=== PATIENT | female | born 1955 | race Caucasian/White ===

== ENCOUNTER 2018-04-13 03:04 | Outpatient (CLI) | payer BC ==
[2018-04-13 16:42] LABS: #Basophils 0.1 thou/uL (0.0-0.2); #Eosinphils 0.2 thou/uL (0.0-0.7); #Lymphocytes 2.4 thou/uL (1.20-3.40); #Monocytes 0.6 thou/uL (0.11-0.59); #Neutrophils 3.8 thou/uL (1.40-6.50); %Eosinophils 2.9 % (0.0-10.0); %Lymphocytes 33.9 % (21.0-51.0); %Monocytes 7.9 % (0.0-10.0); %Neutrophils 54.3 % (42.0-75.0); Hemoglobin 13.9 g/dL (12.0-16.0); Mean Corpuscular HGB CONC 32.8 g/dL (32.0-36.0); Mean Corpuscular Hemoglobin 32.4 pg (27.0-31.0); Mean Corpuscular Volume 98.7 fL (78.0-98.0); Mean Platelet Volume 7.7 fL (7.4-10.4); Platelet Count 336 thou/uL (130-400); RBC Distribution Width 12.5 % (11.5-14.5); Red Blood Cell (RBC) Count 4.29 mill/uL (4.20-5.40); White Blood Cell (WBC) Count 7.1 thou/uL (4.8-10.8)
[2018-04-13 17:01] LABS: Anion Gap 16 mmol/L (10-20); BUN (Urea Nitrogen) 19 mg/dL (9.8-20.1); Calc. Creatinine Clearance 0 mL/min (70-130); Calcium 10.4 mg/dL (7.8-10.44); Carbon Dioxide 24 mmol/L (23-31); Chloride 104 mmol/L (98-107); Estimated GFR-MDRD 50; Glucose 97 mg/dL (80-115); Potassium 4.1 mmol/L (3.5-5.1); Sodium 140 mmol/L (136-145)
--- NOTE | 2018-04-13 17:42 | RAD ---
TWO VIEWS CHEST: 04/13/18 HISTORY: Preoperative chest radiograph. PA and lateral views of the chest is obtained. The lungs are well aerated. No evidence of active intr athoracic disease seen. No evidence of effusions, pneumonia, or pneumothorax seen. IMPRESSION: Unremarkable two views chest. POS: [facility]
--- NOTE | 2018-04-15 08:56 | EKG ---
Test Reason : Blood Pressure : / mmHG Vent. Rate : 075 BPM Atrial Rate : 075 BPM P-R Int : 200 ms QRS Dur : 090 ms QT Int : 416 ms P-R-T Axes : 064 -60 038 degrees QTc Int : 464 ms Normal sinus rhythm Possible Left atrial enlargement Left anterior fascicular block Abnormal ECG When compared with ECG of 18-AUG-1996 12:58, Left anterior fascicular block is now Present Confirmed by DR. Aaron SILVA ([id number]) on 04/15/2018 8:56:25 AM Referred By: Confirmed By:DR. Aaron SILVA
== END 2018-04-13 03:05 | disposition home or self-care (01) ==
LOC: LABBT 03:04
PROVIDERS: ATTEND Specialist
DX: Z01.818 Encounter for other preprocedural examination (principal); C50.912 Malignant neoplasm of unspecified site of left female breast; Z17.0 Estrogen receptor positive status [ER+]
CPT/HCPCS: 71046; 80048; 85025; 93005; 93010

== ENCOUNTER 2018-04-15 06:15 | Day surgery (SDC) | payer BC ==
--- NOTE | 2018-04-07 12:20 | HP ---
HISTORY OF PRESENT ILLNESS: Yari Nascimento is a 62-year-old female, 278 pounds, 5 feet and 7 inches, presents with a new left breast cancer, medial superior breast. Family history is negative for breast cancer. She has been initially evaluated by Dr. Hylton in [place], referred to Dr. 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 Initial mammogram screening on 02/17/2018, BI-RADS 0, required further imaging leading to a left breast ultrasound and biopsy on 03/10/2018. This mass was 0.6 cm at 11 o'clock radian. The patient is 1, para 1, at 19 years of age and she breastfed. She presents today with her . The patient's is undergoing treatment for bladder cancer. The patient does have a history of tubular adenomas, colonoscopy in 2016, plan to repeat in 2019. The recommendation is for lymphoscintigraphy mammographically needle localized localization for partial mastectomy, left breast upper medial cancer with sentinel node biopsy as an outpatient and follow up in my office in Oncology in 5 to 10 days. PAST SURGICAL HISTORY: Hysterectomy in 1980, eye surgery in 1988, EGD colonoscopy in 2016, left breast needle core biopsy on 03/10/2018. Tobacco cessation 2.5 years ago, 1.5 pack per day prior. Alcohol socially. PAST MEDICAL HISTORY: Diabetes mellitus type 2, hypertension, elevated cholesterol, osteoarthritis, arthritis of shoulder, anxiety, depression, hypothyroidism, GERD in 1991, history of colon polyps, vitamin D deficiency, and gastroparesis. REVIEW OF SYSTEMS: Ten-point noncontributory. ALLERGIES: PENICILLIN. PHYSICAL EXAMINATION: VITAL SIGNS: Blood pressure 143/56, pulse 87, temperature 99 degrees, 278 pounds, 5 feet and 7 inches. HEAD, EARS, EYES, NOSE AND THROAT: Unremarkable. LUNGS: Clear to auscultation. CARDIAC: Regular rate and rhythm without murmur or gallop. ABDOMEN: Soft, nontender, obese. EXTREMITIES: Unremarkable. NEUROLOGICAL: Intact. No focal deficits. SKIN: Normal. Ankle are without edema. Palpable peripheral pulses. Both breasts without masses. Axillary without lymphadenopathy. The patient has surgical changes from a core biopsy, left breast upper medial with some firmness at the biopsy site indicative of probably a small hematoma, but no definite palpable mass, but cannot fully assess this due to recent biopsy. ASSESSMENT AND PLAN: Left breast cancer 0.6 cm about radiological criteria, ER positive, weakly PA positive, HER-2 intermediate. We would recommend lymphoscintigraphy needle localization followed by partial mastectomy, sentinel node biopsy. Risks and benefits of procedure were discussed, questions answered. Planned surgery in the near future. We will schedule this and arrange followup for her to see both myself and Dr. Davis on the same day. Job ID: [id number]
[2018-04-13 15:35] VITALS: BMI 42.9
[2018-04-15] MEDS ORDERED: Ketorolac Tromethamine 30 MG/ML VIAL ONE (09:14)
[2018-04-15] MEDS ORDERED: Clindamycin/D5W 600 mg/50 ml Premix Bag ONE (09:14)
[2018-04-15] MEDS ORDERED: Bupivacaine 0.25% HCL 30 ML VIAL ONE (09:56)
[2018-04-15] MEDS ORDERED: Isosulfan Blue 50 MG/5 ML VIAL ONE (09:56)
[2018-04-15] MEDS ORDERED: Lidocaine 1% w/Epinephrine 1:100K 20 ML VIAL ONE (09:56)
[2018-04-15] MEDS ORDERED: Fentanyl 100 MCG/2 ML VIAL ONE ×2 (10:30)
--- NOTE | 2018-04-15 11:48 | NM ---
RADIONUCLIDE LYMPHOSCINTIGRAPHY LEFT BREAST: HISTORY: Left breast cancer. FINDINGS: After explaining the procedure and answering all questions, the periareolar skin of the left breast w as thoroughly cleansed. Sterile technique was used to inject a total volume of 1 cc liquid containin g a total of 372 mCi Technetium 99m filtered sulfur colloid in 4 equal aliquots at the 12 o'clock, 3 o'clock, 6 o'clock, and 9 o'clock periareolar position of the left breast. Injection site was massag ed by the patient and imaging was performed. Immediate imaging shows a focus of uptake at the axillary tail of the left breast. The skin overlyin g the sentinel lymph node was marked and the patient was sent to day surgery in good condition. IMPRESSION: Technically successful lymphoscintigraphy left breast showing single sentinel lymph node at the axill sherri tail. POS: [facility]
[2018-04-15] MEDS ORDERED: Promethazine HCl 25 MG/ML VIAL ONE (12:48)
--- NOTE | 2018-04-15 13:34 | OP ---
DATE OF PROCEDURE: 04/15/2018 PREOPERATIVE DIAGNOSIS: Left breast cancer, upper medial breast. Clinical staging [id number], stage IIC, 0.6 cm by ultrasound criteria, ER positive, SD positive, 97% and 33.4% respectively, HER2 equivocal, Ki-67, intermediate invasive ductal cell carcinoma, 11 o'clock radian, left breast upper medial nonpalpable nodes. POSTOPERATIVE DIAGNOSIS: Left breast cancer, upper medial breast. Clinical staging [id number], stage IIC, 0.6 cm by ultrasound criteria, ER positive, SD positive, 97% and 33.4% respectively, HER2 equivocal, Ki-67, intermediate invasive ductal cell carcinoma, 11 o'clock radian, left breast upper medial nonpalpable nodes. PROCEDURES PERFORMED: Preoperative lymphoscintigraphy and mammo needle localization. Intraoperatively, Lymphazurin blue injection, sentinel node biopsy, deep axillary nodes, partial mastectomy, upper medial left breast cancer. ANESTHESIA: General, local 0.25% Marcaine without epinephrine 60 mL mixed with 1% Xylocaine with epinephrine 30 mL, total volume used, Neoprobe used. Note, Neoprobe counts of the sentinel node 50, background counts 0 after resection. DESCRIPTION OF PROCEDURE: The patient was taken to the operating room, where under general anesthesia, left breast was prepared with ChloraPrep and draped in routine fashion after Lymphazurin blue infiltrated the skin subdermal left periareolar. Once the breast was prepped and draped in the routine fashion, incision was made in the left axilla at the low axillary line, carried down to skin and subcutaneous tissue deep fascia identifying 2 sentinel nodes with counts of 8 on 1 node and 50 on another, background count 0, nodes excised, touch prep was negative for cancer. Hemostasis gained with the cautery. Subcutaneous tissue was approximated with 3-0 Monocryl, skin with subdermal 4-0 Monocryl and local anesthetic was infiltrated in the skin and subcutaneous tissue about the wound and infiltrated the biopsy cavity for postoperative pain control. Dermabond was applied. Incision was made in the upper medial left breast transversely, carried down to skin and subcutaneous tissue. The lesion was too far superior for a periareolar incision. Incision was carried down to skin and subcutaneous tissue. Localizing wire brought into the wound and a core of breast tissue dissected free for partial mastectomy. This was excised along with the localizing needle, and margins marked appropriately upper, lower, medial, lateral, anterior, and posterior. Once marking sutures were in place, lesion was submitted to mammography, where specimen mammography assured retrieval of the localizing clip and wire. Hemostasis gained with the cautery. Specimen submitted to Pathology. Subcutaneous tissues were approximated with 3-0 Monocryl, skin with subdermal 4-0 Monocryl. Local anesthetic was infiltrated in the skin and subcutaneous tissue about the operative site. I also infiltrated the breast tissue and then infiltrated the biopsy cavity filled with local anesthetic. Hemostasis had been obtained. Sponge and needle counts were correct on all wound closures. Dermabond was applied, Mark wraps applied. The patient tolerated the procedure well. Job ID: [id number]
--- NOTE | 2018-04-15 13:54 | MMO ---
MAMMOGRAPHIC GUIDED NEEDLE LOCALIZATION LEFT BREAST MASS AND LEFT BREAST CANCER SURGICAL SPECIMEN MAMMOGRAPHY: HISTORY: Left breast cancer. FINDINGS: Sterile technique, buffered local anesthesia, sonographic guidance, and a medial approach were used t o carefully advance a [place] needle and wire through the biopsy site immediately deep to the localizat ion clip. The clip lies approximately 3 cm from the tip of the needle. The needle was secured exter gorge. The patient tolerated the procedure well and was transferred in good condition. Mammographic evaluation of the surgical specimen obtained by Dr. Ozuna shows the localization wire a nd biopsy clip to overlie the center of the tissue. IMPRESSION: Technically successful needle localization left breast cancer. POS: [facility]
[2018-04-15] MEDS ORDERED: PROPOFOL 200 MG/20 ML VIAL ONE (15:42)
[2018-04-15] MEDS ORDERED: Ondansetron PF 4 MG/2 ML Vial ONE (15:42)
[2018-04-15] MEDS ORDERED: Rocuronium Bromide 10 MG/ML (10ML VIAL) ONE (15:42)
[2018-04-15] MEDS ORDERED: Lidocaine 1% PF 5 ML VIAL ONE (15:42)
[2018-04-15] MEDS ORDERED: Glycopyrrolate 0.2 MG/ML 5 ML SYRINGE ONE (15:42)
[2018-04-15] MEDS ORDERED: ePHEDrine 50 MG/ML VIAL ONE (15:42)
== END 2018-04-15 14:15 | disposition home or self-care (01) ==
LOC: SDC 06:15
PROVIDERS: ATTEND Specialist
PROC: 07B60ZX Excision of Left Axillary Lymphatic, Open Approach, Diagnostic (ICD-10-PCS; principal; 2018-04-15)
PROC: 0HBU0ZZ Excision of Left Breast, Open Approach (ICD-10-PCS; principal; 2018-04-15)
DX: C50.212 Malignant neoplasm of upper-inner quadrant of left female breast (principal); I10 Essential (primary) hypertension; E78.00 Pure hypercholesterolemia, unspecified; M19.012 Primary osteoarthritis, left shoulder; F32.9 Major depressive disorder, single episode, unspecified; E03.9 Hypothyroidism, unspecified; K21.9 Gastro-esophageal reflux disease without esophagitis; E11.43 Type 2 diabetes mellitus with diabetic autonomic (poly)neuropathy; K31.84 Gastroparesis; Z17.0 Estrogen receptor positive status [ER+]; Z87.891 Personal history of nicotine dependence; Z79.84 Long term (current) use of oral hypoglycemic drugs; Z79.899 Other long term (current) drug therapy; Z88.0 Allergy status to penicillin; Z88.5 Allergy status to narcotic agent; Z88.8 Allergy status to other drugs, medicaments and biological substances
CPT/HCPCS: 19281; 76098; 78195; 88307; 88331; 88334; 88341; 88342; A9541; J0131; J1885; J2001; J2405; J2550; J2704; J3010; J3490; Q9968; S0020

== ENCOUNTER 2018-05-27 09:33 | Day surgery (SDC) | payer BC ==
[2018-05-26 10:50] VITALS: BMI 42.3
[2018-05-27] MEDS ORDERED: Levofloxacin 500 mg/D5W 100 ml Premix Bag ONE (10:00)
[2018-05-27] MEDS ORDERED: Metoclopramide HCl 10 MG/2 ML VIAL ONE (10:01)
[2018-05-27] MEDS ORDERED: Ondansetron PF 4 MG/2 ML Vial ONE ×2 (10:01→12:11)
[2018-05-27] MEDS ORDERED: Midazolam HCl 2 mg/2 ml Vial ONE ×2 (10:01→12:23)
[2018-05-27] MEDS ORDERED: Lidocaine 2% PF 5 ML VIAL ONE (10:25)
[2018-05-27] MEDS ORDERED: Bupivacaine HCl 0.5%/Epinephrine 1:200,000/PF 30 ml Vial ONE (10:25)
[2018-05-27] MEDS ORDERED: Sodium Chloride 0.9% 20 ML ONE (11:20)
[2018-05-27] MEDS ORDERED: Iothalamate Meglumine 60% 50 ML VIAL FS ONE (11:24)
[2018-05-27] MEDS ORDERED: Sodium Chloride 0.9% 0 ML ONE (11:24)
[2018-05-27] MEDS ORDERED: Activase 2 MG VIAL CATH SCH (11:26)
[2018-05-27] MEDS ORDERED: Sterile Water 10 ML VIAL IVP SCH (11:26)
[2018-05-27] MEDS ORDERED: Sodium Chloride 0.9% 30 ML ONE (11:29)
--- NOTE | 2018-05-27 11:38 | OP ---
DATE OF PROCEDURE: 05/27/2018 PREOPERATIVE DIAGNOSIS: Left breast cancer with slight redness without fever. POSTOPERATIVE DIAGNOSIS: Left breast cancer with slight redness without fever. PROCEDURE PERFORMED: Right subclavian vein standard MediPort, fluoroscopy used. ANESTHESIA: TIVA, local of 0.25% Marcaine with epinephrine 30 mL mixed with 2% Xylocaine 10 mL. Aspirated serous sanguinous greenish fluid from the left breast, sent for culture. DESCRIPTION OF PROCEDURE: The patient was taken to the operating room, where under intravenous sedation, the chest and neck were prepared with ChloraPrep and draped in routine fashion. Local anesthetic mixture was infiltrated into the skin and subcutaneous tissue about the operative site. Infraclavicular approach made cannulating the right subclavian vein, threading the J-wire, removing the trocar and catheter, enlarging skin incision, creating a subcutaneous pocket with blunt and sharp dissection using cautery for hemostasis. Dilator and Peel-Away sheath placed with J-wire into the superior vena cava. Dilator and J-wire were removed. Catheter was placed with Peel-Away sheath. Peel-Away sheath removed. Fluoroscopically, catheter tip was placed in optimal position in the superior vena cava, tailored to length, connected to the MediPort, placed in subcutaneous pocket, secured with 2 interrupted suture of 3-0 Prolene. Subcutaneous tissue was approximated with 3-0 Monocryl, skin approximated with continuous suture of 4-0 Monocryl, and [place] glue applied. Fluoroscopic images revealed good line placement. Left breast was then aspirated as it had been prepped with ChloraPrep. There was some greenish clear fluid not indicative of infection, sent for culture. Job ID: [id number]
[2018-05-27] MEDS ORDERED: PHENYLEPHRINE-NS 100 MCG/ML 10 ML SYRINGE ONE (12:11)
[2018-05-27] MEDS ORDERED: Lidocaine 1% PF 5 ML VIAL ONE (12:11)
[2018-05-27] MEDS ORDERED: PROPOFOL 200 MG/20 ML VIAL ONE (12:12)
[2018-05-27] MEDS ORDERED: Bupivacaine/Epinephrine 0.25% 30 ML VIAL ONE (12:14)
[2018-05-27] MEDS ORDERED: Fentanyl 100 MCG/2 ML VIAL ONE (12:23)
[2018-05-27] MEDS ORDERED: Propofol 500 MG/50 ML VIAL ONE (12:24)
[2018-05-27] MEDS ORDERED: PROPOFOL 40 ML ONE (12:24)
--- NOTE | 2018-05-27 12:54 | OP ---
DATE OF PROCEDURE: 05/27/2018 ADDENDUM: Ms. Nascimento's MediPort after being inserted was accessed with a Velázquez needle and flushed with heparinized saline solution, but would not aspirate. I then repositioned fluoroscopy and looked at the MediPort and the catheter was too long. After persistent attempts, it flushed, aspirated, I then decided to reopen the incision. The chest was prepared with ChloraPrep and draped in routine fashion. Incision was made through the old incision and MediPort brought into the wound, removed from the wound. The catheter was disconnected from the MediPort and fluoroscopic images revealed the catheter as noted to be too long and thus, the catheter was withdrawn under fluoroscopic images. Tip placed in proper position in the superior vena cava and catheter tailored to length and reconnected to the MediPort, which was placed in subcutaneous pocket, secured with 3-0 Prolene suture. Subcutaneous tissue was approximated with 3-0 Monocryl, skin with subdermal 4-0 Monocryl. MediPort accessed with a Velázquez needle and aspirated blood, flushed with heparin flush without problems. Fluoroscopic images revealed good line placement. Dermabond applied. The patient tolerated the procedure well. Job ID: [id number]
--- NOTE | 2018-05-27 13:42 | RAD ---
CHEST 2 VIEWS: Date: 05/27/18 HISTORY: MediPort placement. COMPARISON: Radiograph from 04/13/18. FINDINGS: Lungs are clear. No pneumothorax or effusion. Cardiac silhouette and mediastinal contour within edmar l limits. No acute osseous abnormality. Port catheter tip in good position. IMPRESSION: Uncomplicated placement of right port catheter placement. POS: [facility]
== END 2018-05-27 13:20 | disposition home or self-care (01) ==
LOC: SDC 09:33
PROVIDERS: ATTEND Specialist
DX: C50.912 Malignant neoplasm of unspecified site of left female breast (principal); Z88.5 Allergy status to narcotic agent; Z88.0 Allergy status to penicillin; Z79.899 Other long term (current) drug therapy
CPT/HCPCS: 71046; 87070; 87205; A4216; J0670; J1642; J1956; J2001; J2250; J2405; J2704; J2765; J2997; J3010; Q9961

== ENCOUNTER 2018-10-24 15:26 | Inpatient (IN) | payer BC ==
[~2018-10-24 15:26] MED LIST: ISOVUE-370 76%-LOCM 1 ML ONE
[2018-10-24 15:50] LABS: #Eosinphils 0.2 thou/uL (0.0-0.7); #Lymphocytes 1.2 thou/uL (1.20-3.40); #Monocytes 0.3 thou/uL (0.11-0.59); #Neutrophils 1.4 thou/uL (1.40-6.50); %Eosinophils 6.1 % (0.0-10.0); %Lymphocytes 38.3 % (21.0-51.0); %Monocytes 9.6 % (0.0-10.0); Mean Corpuscular HGB CONC 31.5 g/dL (32.0-36.0); Mean Corpuscular Hemoglobin 31.4 pg (27.0-31.0); Mean Corpuscular Volume 99.7 fL (78.0-98.0); Mean Platelet Volume 7.4 fL (7.4-10.4); Platelet Count 407 thou/uL (130-400); RBC Distribution Width 15.4 % (11.5-14.5); Red Blood Cell (RBC) Count 3.82 mill/uL (4.20-5.40)
[2018-10-24 16:16] LABS: ALT (SGPT) 14 U/L (8-55); AST (SGOT) 23 U/L (5-34); Acetaminophen Less than 6.0 mcg/mL (10.0-30.0); Albumin 3.9 g/dL (3.4-4.8); Alcohol Less than 10 mg/dL (Less than 10); Alkaline Phosphatase 45 U/L (40-150); Anion Gap 19 mmol/L (10-20); BUN (Urea Nitrogen) 11 mg/dL (9.8-20.1); Bilirubin, Total 0.2 mg/dL (0.2-1.2); Calc. Creatinine Clearance 0 mL/min (70-130); Calcium 8.9 mg/dL (7.8-10.44); Carbon Dioxide 23 mmol/L (23-31); Chloride 103 mmol/L (98-107); Estimated GFR-MDRD 51; Globulin 2.7 g/dL (2.4-3.5); Glucose 227 mg/dL (80-115); Lipase 107 U/L (8-78); Potassium 3.7 mmol/L (3.5-5.1); Protein, Total 6.6 g/dL (6.0-8.3); Salicylate Less than 8.0 mg/dL (15.0-30.0); Sodium 141 mmol/L (136-145)
[2018-10-24 16:18] LABS: Actual Bicarbonate (HCO3a) 25.3 mEq/L (22-28); Analyzer IN Cardio ER; Base Excess (BEa) -6.9 mEq/L (-2.0 to +3.0); Calcium, Ionized 1.17 mmol/L (1.12-1.30); O2 Tension (PaO2) 75.7 mmHg (> 80.0); Potassium - ABG Lab 3.98 mmol/L (3.70-5.30)
[2018-10-24 16:20] LABS: CO2 Tension 91.3 mmHg (35.0-45.0); pH, Arterial 7.06 (7.35-7.45)
[2018-10-24 16:21] LABS: ALV-art Gradient 523.175 (0-20); Puncture Site RBRACH
[2018-10-24] MEDS ORDERED: fentaNYL Citrate/PF 2,000 MCG in Sodium Chloride 0.9% 60 ML IV SCH ×2 (16:21→19:51)
[2018-10-24 16:48] LABS: Bacteria/HPF 3+ HPF (None Seen); Bilirubin Negative (Negative); Blood, Urine Trace (Negative); Clarity Turbid (Clear); Glucose, Urine (Dipstick) 500 mg/dL (Negative); Leukocyte Negative Leu/uL (Negative); Nitrite Negative (Negative); Protein, Urine (Dipstick) 300 mg/dL (Neg-Trace); RBC/HPF 0-3 HPF (0-3); Squamous Epithelial 0-3 HPF (0-3); Urobilinogen Normal mg/dL (Less than 2)
--- NOTE | 2018-10-24 16:52 | CT ---
Exam: Head CT without contrast HISTORY: Altered mental status. Status post cardiac arrest COMPARISON: none FINDINGS: Hemorrhage: No intraparenchymal hemorrhage or extra-axial hematoma. Brain parenchyma: Cortical banks-white matter differentiation is preserved. No mass effect or midline shift. Basilar cisterns are patent. Ventricular system: Ventricles and sulci are patent and symmetric. Calvarium: Intact. Sinuses and mastoid air cells: Minimal mucosal thickening of the ethmoid air cells. Minimal sphenoid sinus disease. IMPRESSION: No acute intracranial process.
[2018-10-24 16:54] LABS: Amphetamine Not Detected (NotDetected); Barbiturates Screen Not Detected (NotDetected); Benzodiazepine Screen Not Detected (NotDetected); Cocaine Metabolite Screen Not Detected (NotDetected); Medtox Control Line Valid? VALID (VALID); Medtox Reader # READER 4; Methadone Not Detected (NotDetected); Methamphetamine Not Detected (NotDetected); Opiate Screen Not Detected (NotDetected); Oxycodone Screen Not Detected (NotDetected); Phencyclidine (PCP) Not Detected (NotDetected); THC/Cannabinoid Screen Not Detected (NotDetected); Tricyclic Screen Not Detected (NotDetected)
--- NOTE | 2018-10-24 17:09 | CT ---
CTA Angio Chest W WO Con 10/24/2018 3:42 PM Indication: Difficulty breathing Technique: Multiple CTA images were obtained of the thorax with IV contrast. 3D reformatted images were constructed from the raw data. Comparison: None Findings: Pulmonary arteries: No central or segmental pulmonary embolus is evident. Heart and Great Vessels: Normal appearing. Lungs:There is bilateral lower lobe airspace consolidation with patchy perihilar groundglass pulmonar y opacities. Pleural space: Clear. Upper Abdomen: There is a 2.5 cm right adrenal nodule. This is incompletely characterized. [place] er surgically absent. Osseous Structures: There is scattered degenerative and osteoarthritic change present. Impression: No central or segmental pulmonary embolus. Bibasilar airspace opacities suspicious for pneumonia or aspiration. Perihilar groundglass opacities may reflect a pneumonitis or edema. Right adrenal nodule, incompletely characterized.
[2018-10-24] MEDS ORDERED: Sodium Bicarbonate 2.5 MEQ/5 ML VIAL ONE ×2 (17:18→17:20)
[2018-10-24] MEDS ORDERED: Piperacillin/Tazobactam 4.5 GM VIAL ONE (17:19)
--- NOTE | 2018-10-24 17:19 | CT ---
CT of the abdomen and pelvis: 10/24/2018 COMPARISON: 09/05/2018 HISTORY: CPR, agonal respirations, difficulty breathing TECHNIQUE: Axial CT imaging at 5 mm intervals from the lung bases through the pubic symphysis with IV contrast. Coronal reformatted imaging obtained. FINDINGS: Dense consolidation is noted involving bilateral lower lobes and there is incompletely imag ed nonspecific airspace disease within the lingula and right middle lobe. Nasogastric tube extends into the stomach. Trace pericardial fluid. No free intraperitoneal air or fluid. There is a Rosa cat heter within the urinary bladder. The liver, spleen, pancreas, and right kidney appear unremarkable. There is a tiny hypodensity in the upper pole of the left kidney measuring 1.1 cm, too small to april cterize. There is nonspecific tiny nodule within the lateral aspect of the adrenal gland on the left measuring 1 cm. There is a mass within the adrenal gland on the right measuring 2.1 cm. There is a venous catheter within the right common femoral vein. Evaluation of the bowel is limited without oral contrast media. There is no evidence for bowel inflam matory change or obstruction. The appendix is visualized and is within normal limits. There is extensive atherosclerotic calcification of the abdominal aorta and its branches. No lymphadenopathy is evident within the abdomen/pelvis. Review of the osseous structures demonstrates multilevel degenerative change within the spine. No lyt ic or blastic bone lesion. IMPRESSION: Dense consolidation within bilateral lung bases which may be on the basis of infectious p neumonitis, pulmonary edema, and/or aspiration. Nonspecific bilateral adrenal nodules for which dedicated follow-up adrenal mass protocol CT is advis ed. Prominent atherosclerotic disease involving the abdominal aorta and its branches.
[2018-10-24] MEDS ORDERED: Sodium Bicarb 50 MEQ/50 ML VIAL ONE (17:22)
[2018-10-24] MEDS ORDERED: Propofol 1,000 MG/100 ML VIAL IV ONE (18:26)
[2018-10-24] MEDS ORDERED: Bisacodyl 5 MG TAB PO PRN (18:58)
[2018-10-24] MEDS ORDERED: Dextrose 5% in Water 1,000 ML IV PRN (19:02)
[2018-10-24] MEDS ORDERED: Dextrose 50% Abboject 50 ML SYRINGE SLOW IVP PRN (19:03)
[2018-10-24] MEDS ORDERED: HumaLOG 300 UNITS/3 ML VIAL SC PRN (19:03)
[2018-10-24 19:12] LABS: Troponin I 0.056 ng/mL (< 0.028)
[2018-10-24] MEDS ORDERED: Vancomycin HCl 1 GM in Premix Bag 1 BAG IVPB SCH ×2 (19:15→21:45)
[2018-10-24] MEDS: Sodium Chloride 0.9% 1,000 ML IV SCH (19:45)
[2018-10-24] MEDS ORDERED: Lorazepam 2 MG/ML VIAL SLOW IVP PRN (19:51)
[2018-10-24] MEDS ORDERED: Morphine 2 MG/ML SYRINGE SLOW IVP PRN ×2 (19:51→19:54)
[2018-10-24] MEDS ORDERED: Propofol BOLUS 1,000 MG/100 ML VIAL IV PRN (19:51)
[2018-10-24] MEDS ORDERED: Propofol 1,000 MG/100 ML VIAL IV PRN (19:51)
[2018-10-24] MEDS ORDERED: Fentanyl BOLUS 250 ML IVPB PRN (19:51)
[2018-10-24 19:54] LABS: Lactic Acid 1.8 mmol/L (0.5-2.2)
--- NOTE | 2018-10-24 19:58 | HP ---
PRIMARY CARE PROVIDER: Colton Hylton MD CHIEF COMPLAINT: Unresponsiveness. HISTORY OF PRESENT ILLNESS: Ms. Nascimento is a 62-year-old lady, who was seen at [facility] for cardiac arrest on October 24, 2018. The patient is unable to provide any history. Family members are not available. Collateral history was obtained from review of medical record and from discussion with emergency room physician. Ms. Nascimento was diagnosed with left-sided breast cancer in March 2018. She had a MediPort placed and received chemotherapy. She appears to have received her first dose of radiation therapy today. Two hours after receiving radiation therapy, she was at [facility] when she collapsed. EMS reported agonal respirations. CPR was performed for approximately 4 minutes before return of spontaneous circulation. The patient did not receive any medications during CPR. Following return of spontaneous circulation, she was given ketamine and rocuronium and was intubated. She was brought to the emergency room. Her blood sugar was reportedly [address] to [address] emergency room. REVIEW OF SYSTEMS: Could not be completed secondary to the patient's intubated status. PAST MEDICAL HISTORY: Diabetes mellitus type 2, hypertension, dyslipidemia, osteoarthritis, arthritis of shoulder, anxiety, depression, hypothyroidism, gastroesophageal reflux disease, colon polyps, vitamin D deficiency, and gastroparesis. PAST SURGICAL HISTORY: Hysterectomy, MediPort placement, EGD, colonoscopy in 2016, left breast needle core biopsy in March 2018. FAMILY HISTORY: Could not obtain. SOCIAL HISTORY: Could not obtain. ALLERGIES: ACETAMINOPHEN, CODEINE, HYDROCODONE, PENICILLIN, PROPOXYPHENE, AND TRAMADOL. CURRENT MEDICATIONS: These will need to be clarified. In the past, the patient was on; 1. Aripiprazole. 2. Vitamin D3. 3. Welchol. 4. Empagliflozin. 5. Metformin. 6. Vitamin D2. 7. Escitalopram. 8. Fenofibrate. 9. Levothyroxine. 10. Metoprolol succinate. 11. Multivitamins. 12. Omeprazole. 13. Rosuvastatin. 14. Spironolactone. 15. [place] Thyroid. 16. Valsartan. PHYSICAL EXAMINATION: GENERAL: On examination, Ms. Nascimento is intubated and mechanically ventilated. VITAL SIGNS: Blood pressure is 120/64, pulse 92, respiratory rate 20, and oxygen saturation 93% on ventilator. She is afebrile. She is obese. EYES: No scleral icterus. No conjunctival pallor. ENT: Endotracheal tube in place. NECK: No cervical lymphadenopathy. Trachea is midline. RESPIRATORY: Accessory muscles of breathing are not active. Chest wall movements are symmetric bilaterally. She has bibasilar crackles. CARDIOVASCULAR: S1 and S2 are heard, regular. Peripheral pulses palpable. No carotid bruit. No pericardial rub. ABDOMEN: Soft, distended, nontender. Bowel sounds heard. NEUROLOGIC: Full neurologic examination was not possible secondary to the patient's noncooperation. There is no facial droop. Deep tendon reflexes 2+, plantars downgoing bilaterally. SKIN: Old healing wound over the left knee. She also has a right-sided femoral line and a right chest wall MediPort. PSYCHIATRIC: Unable to assess mood, affect or orientation to person, place, or time. MUSCULOSKELETAL: The patient is moving all 4 extremities. LYMPHATIC: No cervical lymphadenopathy. LABORATORY DATA: Ms. Nascimento's labs and investigations were reviewed. I reviewed her electrocardiogram, which shows sinus tachycardia, no ST changes to suggest an acute coronary syndrome. I also reviewed her noncontrast CT scan of the brain, which was unremarkable. CT scan of the abdomen and pelvis showed dense consolidation within bilateral lung bases. She also had nonspecific bilateral adrenal nodules, for which dedicated followup adrenal mass protocol CT was advised. She also has prominent atherosclerotic disease involving the abdominal aorta and its branches. CT angiogram of the chest did not show any evidence of central or segmental pulmonary embolus. She had bibasilar airspace opacities suspicious for pneumonia or aspiration and perihilar ground-glass opacities, which may reflect pneumonitis or edema. She has leukopenia with 3000 white cells, of which 46% are neutrophils. Hemoglobin is normal. Platelet count is elevated at 407,000. Lipase is mildly elevated at 107. Comprehensive metabolic profile is otherwise unremarkable. Troponin I was initially 0.013, subsequently trended into the indeterminate range at 0.056. Lactic acid at 1538 hours was elevated at 8.8. Urinalysis showed turbid urine, but was negative for nitrite and leukocyte esterase. Urine drug screen was unremarkable. Arterial blood gases showed pH of 7.06, pCO2 of 75.7, and pO2 of 87.4. ASSESSMENT AND PLAN: Ms. Nascimento is a 62-year-old lady, who was seen at [facility] on October 24, 2018. Her problem list includes: 1. Acute hypoxic respiratory failure: Ms. Nascimento is presenting with acute hypoxic respiratory failure. She had CPR performed on the field with return of spontaneous circulation. She is currently intubated and mechanically ventilated. She will be admitted to the Critical Care Unit for further management. Etiology of acute hypoxic respiratory failure may be secondary to bilateral pneumonia. 2. Pneumonia: We will continue the patient on vancomycin and Zosyn, which have already been started. We will follow blood cultures. 3. Diabetes mellitus, type 2: We will start her on Accu-Cheks and insulin sliding scale. 4. Hypertension: The patient is currently maintaining good blood pressures. If blood pressures drop, she may need vasopressors. She already has a femoral line in place. 5. Hypothyroidism: Appears to be stable. Continue with thyroid replacement therapy. 6. Gastroesophageal reflux disease: We will start the patient on H2 blockers since she is currently intubated. Many thanks for allowing me to participate in your patient's care. Please feel free to contact me with any questions or concerns. LEVEL OF RISK: High. LEVEL OF COMPLEXITY: High. Job ID: [id number]
[2018-10-24 22:16] LABS: Troponin I 0.148 ng/mL (< 0.028)
[2018-10-25] MEDS ORDERED: Piperacillin/Tazobactam 4.5 GM in Sodium Chloride 0.9% 100 ML IVPB SCH (01:00)
[2018-10-25] MEDS: Sodium Chloride 0.9% 1,000 ML IV SCH ×2 (05:53→09:19)
[2018-10-25 06:59] LABS: Actual Bicarbonate (HCO3a) 28.2 mEq/L (22-28); Base Excess (BEa) 2.3 mEq/L (-2.0 to +3.0); CO2 Tension 49.6 mmHg (35.0-45.0); Hemoglobin (Hb) 10.6 g/dL (12.0-16.0); O2 Tension (PaO2) 168.1 mmHg (> 80.0); pH, Arterial 7.37 (7.35-7.45)
[2018-10-25 07:00] LABS: Carboxyhemoglobin (COHb) 0.3 gm% (0.0-3.0)
[2018-10-25 07:01] LABS: Potassium - ABG Lab 1.07 mmol/L (3.70-5.30); Puncture Site RRA
[2018-10-25] MEDS ORDERED: DC Sedation Protocol FS ONE (08:40)
--- NOTE | 2018-10-25 08:52 | RAD ---
CHEST 1 VIEW: HISTORY: Endotracheal tube placement: COMPARISON: 10/14/2018. FINDINGS: Semiupright chest radiograph demonstrates a right-sided MediPort catheter. Endotracheal tube is note d at the level of the clavicles. Nasogastric tube extends beyond the diaphragm. Heart is enlarged. Pulmonary vessels are prominent. Bilateral perihilar interstitial and alveolar opacities. Opacific ation of the left hemidiaphragm likely due to pleural and parenchymal change. No pneumothorax or oss eous abnormalities. IMPRESSION: Congestive heart failure. POS: [facility]
[2018-10-25] MEDS ORDERED: [UNRECOGNIZED DRUG - OTHER] PO SCH (09:00)
[2018-10-25] MEDS ORDERED: METFORMIN HCL PO SCH (09:00)
[2018-10-25] MEDS ORDERED: Aripiprazole 2 MG TAB PO SCH (09:00)
[2018-10-25] MEDS ORDERED: EMPAGLIFLOZIN PO SCH (09:00)
[2018-10-25] MEDS: Spironolactone 25 MG TAB PO SCH (09:19)
--- NOTE | 2018-10-25 09:30 | CON ---
DATE OF CONSULTATION: HISTORY OF PRESENT ILLNESS: Yari Nascimento is a 62-year-old morbidly obese female, who was brought in the ER by her after they are at the [email or web address] and apparently, she had nausea followed by progressive shortness of breath, more dyspnea. Finally, she collapsed. Apparently according to the , she kind of become syncope, lost consciousness. CPR was briefly initiated. No medication was given. She is intubated and transferred to the hospital. CT chest shows bilateral pleural effusion, cardiomegaly, and infiltrates. states she did not smoke. No prior history of TB, pneumonia, or bronchial asthma. Denies any recent history of fevers, chills, sweats, or hemoptysis. Undergoing outpatient radiation for metastatic breast cancer, being followed by a local oncologist over a year. PAST MEDICAL HISTORY: Otherwise is pertinent for breast cancer, diabetes, hypertension, depression, pancreatitis following chemotherapy, and anxiety. PAST SURGICAL HISTORY: previous surgeries, breast biopsy and hysterectomy. SOCIAL HISTORY: Apparently, she quit smoking years ago. No alcohol. HOME MEDICATIONS: Includes; 1. Spironolactone. 2. Metoprolol XL. 3. Synthroid 25 plus 200. 4. Celexa 20. 5. Aripiprazole 1 mg. 6. Valsartan 320 mg. 7. Thyroid [place] 30. 8. Omeprazole 20. 9. Vitamin. 10. Toprol-XL 25. ALLERGIES: HYDROCODONE AND PENICILLIN. REVIEW OF SYSTEMS: Otherwise unobtainable. PHYSICAL EXAMINATION: GENERAL: She is awake, alert, and responsive on the vent. Sedation is withheld. Moves all 4 extremities. VITAL SIGNS: Blood pressure is 107/50, respiratory rate 28, temperature 99. CHEST: Bilateral crackles and rhonchi. CARDIAC: Normal S1 and S2. No gallops. ABDOMEN: No masses. NEUROLOGIC: She is noted awake, alert, and responsive. LABORATORY DATA: A pO2 of 168, pCO2 40%, pH 7.37, rate of 20, and 10 of PEEP. Glucose 162. White count is 3.8. Lytes otherwise normal. Creatinine is normal. Lactic acid elevated is normal. IMPRESSION: 1. Respiratory failure. 2. Morbid obesity. 3. Congestive heart failure, rule out. 4. Breast cancer, on radiation chemotherapy. 5. Diabetes. PLAN: We will try and get medication list from the , whom I spoke to at length. Adjust medication appropriately. We will try and wean and extubate. Echo is being ordered. BNP is ordered. Empiric antibiotics, supportive care, and PT. TIME SPENT: This is a 45-minute critical care time. Job ID: [id number]
[2018-10-25] MEDS: Cefepime 2 GM in Sodium Chloride 0.9% 100 ML IVPB SCH ×2 (09:42→21:07)
[2018-10-25] MEDS: Enoxaparin Sodium 40 MG/0.4 ML SYRINGE SC SCH (09:43)
[2018-10-25] MEDS: Escitalopram Oxalate 20 mg Tablet PO SCH (09:43)
[2018-10-25] MEDS ORDERED: Furosemide 20 MG/2 ML VIAL SLOW IVP SCH ×2 (10:45→10:46)
[2018-10-25] MEDS ORDERED: Fentanyl 100 MCG/2 ML VIAL ONE (10:53)
[2018-10-25] MEDS ORDERED: Midazolam HCl 2 mg/2 ml Vial ONE (11:04)
[2018-10-25] MEDS ORDERED: Morphine 2 MG/ML SYRINGE SLOW IVP PRN (11:24)
[2018-10-25] MEDS ORDERED: Propofol BOLUS 1,000 MG/100 ML VIAL IV PRN (11:24)
[2018-10-25] MEDS ORDERED: Fentanyl BOLUS 250 ML IVPB PRN (11:24)
[2018-10-25] MEDS ORDERED: Propofol 1,000 MG/100 ML VIAL IV PRN (11:24)
[2018-10-25] MEDS ORDERED: DISCONTINUE PREVIOUS NARCOTIC PAIN MEDICATIONS AND BENZODIAZEPINES FS SCH (11:24)
[2018-10-25] MEDS ORDERED: Ventilator Sedation Protocol 1 EACH FS SCH (11:30)
[2018-10-25] MEDS ORDERED: Furosemide 40 MG/4 ML VIAL SLOW IVP SCH ×3 (11:30→16:00)
--- NOTE | 2018-10-25 11:50 | PRG ---
DATE OF SERVICE: SUBJECTIVE: Yari Nascimento is a 62-year-old female, she was extubated earlier today, was doing well. Her BNP was 570. She was given 20 of Lasix. She was having an echocardiogram done when she was lying supine. She became acutely short of breath, became hypoxic. Heart rate 146, blood pressure 130/80 respirations 35. She was placed on BiPAP for a total of 20 minutes to be observed, not getting better. She received 25 of fentanyl. Stat Lasix 40 was given. Given neb treatments. Despite of this, she did not get better. Therefore, she was intubated with a 7.5 endotracheal tube via the bronchoscope. Entering the te, there was a very large volume of frothy bloody secretions extensive. Several multiple attempts to lavage the entire lung without any saline was done until it was completely clear. She was then connected to volume-cycled respirator. She was then given additional 40 of Lasix, nitroglycerin patch 1 inch was given. Additional 25 Fentanyl was given, 2 mg of Versed was placed, and she was started on a fentanyl drip. Connected to a volume-cycled respirator. OBJECTIVE: VITAL SIGNS: Post-intubation, blood pressure is 82/40, saturations are 93%, pulse 122, respiratory rate 22. CHEST: Extensive rhonchi and crackles. CARDIAC: Sinus tach. ABDOMEN: Soft. IMAGING STUDIES: EKG is abnormal, shows an anterolateral change. IMPRESSION: 1. Respiratory failure, coronary artery disease, congestive heart failure. 2. Morbid obesity, probably sleep apnea. 3. Breast cancer, chemotherapy, possibly pneumonia. PLAN: Continue vent support. Await report on the echo. Consult Cardiology. We will wean when stable. Please note this is a one-half hour of critical time exclusive of the intubation. Job ID: [id number]
--- NOTE | 2018-10-25 11:50 | RAD ---
XR Chest 1 View Portable History: Ventilated patient Comparison: Radiograph same day Findings: Patient is intubated with endotracheal tube tip at the level of the clavicles. Patchy perih ilar edema has increased. Enteric tube tip below diaphragm although out of field of view. No pneumothorax. Subclavian central v enous catheter tip sits at the inferior SVC. Impression: Mild progressive pulmonary edema.
[2018-10-25 11:52] LABS: Actual Bicarbonate (HCO3a) 25.9 mEq/L (22-28); Base Excess (BEa) -5.3 mEq/L (-2.0 to +3.0); Calcium, Ionized 1.14 mmol/L (1.12-1.30); Hemoglobin (Hb) 12.6 g/dL (12.0-16.0); O2 Tension (PaO2) 105.3 mmHg (> 80.0); Potassium - ABG Lab 4.03 mmol/L (3.70-5.30)
[2018-10-25 12:00] LABS: CO2 Tension 84.1 mmHg (35.0-45.0); Puncture Site RRA; pH, Arterial 7.11 (7.35-7.45)
[2018-10-25 12:01] LABS: ALV-art Gradient 502.575 (0-20)
[2018-10-25] MEDS ORDERED: Dextrose 5% in Water 1,000 ML IV PRN (12:09)
[2018-10-25] MEDS ORDERED: Dextrose 50% Abboject 50 ML SYRINGE SLOW IVP PRN (12:09)
[2018-10-25] MEDS ORDERED: Lisinopril 10 MG TAB PO SCH ×3 (12:15→21:00)
[2018-10-25] MEDS ORDERED: Digoxin 0.5 MG/2 ML AMP SLOW IVP SCH (12:15)
[2018-10-25] MEDS: fentaNYL Citrate/PF 2,000 MCG in Sodium Chloride 0.9% 60 ML IV SCH (12:18)
[2018-10-25] MEDS: Lorazepam 2 MG/ML VIAL SLOW IVP PRN ×2 (12:39→14:13)
[2018-10-25] MEDS ORDERED: Lidocaine 1% PF 10 ML AMP FS SCH (16:15)
[2018-10-25] MEDS ORDERED: Bupivacaine HCl 0.5%/Epinephrine 1:200,000/PF 30 ml Vial IJ SCH (16:30)
[2018-10-25] MEDS ORDERED: Lidocaine 2% 20 ml MDV FS SCH (16:30)
[2018-10-25] MEDS ORDERED: Lidocaine 2% MPF 10 ML AMP (For Epidural Use) FS SCH (16:30)
--- NOTE | 2018-10-25 18:36 | PDOC.HOSPP ---
- Subjective Encounter Date: 10/25/18 Encounter Time: 14:40 Subjective: Pt seen for followup re: acute hypoxic respiratory failure. Intubated, could not complete ROS. - Objective Vital Signs & Weight: Vital Signs (12 hours) Temp Pulse Resp BP Pulse Ox 10/25/18 18:00 20 10/25/18 16:05 99 145/69 H 10/25/18 16:00 22 H 10/25/18 14:13 88 92/49 L 10/25/18 14:10 87 20 99 10/25/18 14:00 22 H 10/25/18 13:00 99.9 F H 10/25/18 12:49 99 10/25/18 12:43 103/61 10/25/18 12:00 22 H 10/25/18 11:30 120 H 103/61 10/25/18 11:28 120 H 38 H 88 L 10/25/18 11:17 20 10/25/18 08:40 93 20 91 L 10/25/18 08:00 96 10/25/18 07:52 20 Weight Admit Weight 266 lb 8.622 oz Weight 266 lb 8.622 oz Most Recent Monitor Data Heart Rate from ECG 95 NIBP 106/47 NIBP BP-Mean 66 Respiration from ECG 15 SpO2 96 I&O: 10/24/18 10/25/18 10/26/18 06:59 06:59 06:59 Intake Total 1442 555 Output Total 595 1240 Balance 847 -685 Result Diagrams: 10/24/18 15:38 10/24/18 15:38 Additional Labs: Accuchecks 10/25/18 10/25/18 10/25/18 16:03 13:00 05:53 POC Glucose 141 H 207 H 162 H 10/24/18 23:58 POC Glucose 196 H Labs and MARs reviewed by me. EKG Reviewed by me: Yes (Tele: NSR) ROS - Review of Systems ROS unobtainable: due to endotracheal tube - Medication Medications: Active Medications Generic Name Dose Route Start Last Admin Trade Name Freq PRN Reason Stop Dose Admin Albuterol/Ipratropium 3 ml 10/25/18 11:00 10/25/18 14:10 Duoneb NEB 3 ml [id number] PATTI Administration Bupivacaine HCl/Epinephrine Bitart 30 ml 10/25/18 16:30 10/25/18 17:49 Marcaine 0.5%/Epinephrine IJ 10/25/18 19:00 Not Given NOW [facility] Enoxaparin Sodium 40 mg 10/25/18 09:00 10/25/18 09:43 Lovenox SC 40 mg 0900 PATTI Administration Escitalopram Oxalate 20 mg 10/25/18 09:00 10/25/18 09:43 Lexapro PO 20 mg QAM PATTI Administration Cefepime HCl 2 gm/ Sodium 100 mls @ 200 mls/hr 10/25/18 09:00 10/25/18 09:42 Chloride IVPB 100 mls Q12HR PATTI Administration Fentanyl Citrate 2,000 mcg/ 100 mls @ 0 mls/hr 10/25/18 11:24 10/25/18 12:18 Sodium Chloride IV 11/24/18 11:24 100 mls INF PATTI Administration Protocol Per Protocol Insulin Human Lispro 0 units 10/24/18 19:03 10/25/18 00:00 Humalog SC 2 unit .MILD SLIDING SCALE PRN Administration Mild Correctional Scale Lidocaine HCl 10 ml 10/25/18 16:30 10/25/18 17:49 Xylocaine 2% Pf FS 10/25/18 19:00 Not Given NOW [facility] Lorazepam 2 mg 10/25/18 11:24 10/25/18 14:13 Ativan SLOW IVP 11/24/18 11:24 2 mg Q1H PRN Administration Breakthrough agitation Metoprolol Succinate 50 mg 10/25/18 09:00 10/25/18 09:43 Toprol Xl PO 50 mg QAM PATTI Administration Spironolactone 25 mg 10/25/18 09:00 10/25/18 09:19 Aldactone PO Not Given QAM [facility] - Exam General - other findings: Obese Eye: anicteric sclera ENT - other findings: ETT Neck: symmetric, no thyromegaly Heart: RRR, no rubs Respiratory - other findings: Yamil crackles Gastrointestinal: soft, normal bowel sounds Neurological - other findings: No facial droop Psychiatric - other findings: Unable to assess Hosp A/P (1) Acute respiratory failure with hypoxia Code(s): J96.01 - ACUTE RESPIRATORY FAILURE WITH HYPOXIA Status: Acute (2) CHF (congestive heart failure) Code(s): I50.9 - HEART FAILURE, UNSPECIFIED Status: Suspected (3) Pulmonary infiltrates Code(s): R91.8 - OTHER NONSPECIFIC ABNORMAL FINDING OF LUNG FIELD Status: Acute (4) DM2 (diabetes mellitus, type 2) Status: Chronic (5) Breast cancer Status: Chronic - Plan continue antibiotics Pt was extubated earlier, had to be reintubated. Continue accuchecks and insulin sliding scale. Continue cefepime and IV vancomycin. Oncology and cardiology consulted.
[2018-10-25] MEDS ORDERED: Vancomycin HCl 1.75 GM in Sodium Chloride 0.9% 500 ML IVPB SCH (20:00)
[2018-10-25] MEDS: Nitroglycerin 2% Ointment 1 INCH/1 GM Packet TOP SCH (20:54)
[2018-10-25] MEDS ORDERED: Prevnar 13-Val Conj/PF 0.5 ML SYRINGE IM ONE (21:00)
--- NOTE | 2018-10-25 22:07 | CON ---
DATE OF CONSULTATION: REASON FOR CONSULT: Breast cancer. HISTORY OF PRESENT ILLNESS: Ms. Nascimento is a 62-year-old female who was diagnosed with stage I invasive ductal carcinoma of the left breast. She was a stage IA. She is ER/[place] positive, HER2 negative. She completed 6 cycles of chemotherapy consisting of Taxotere and Cytoxan. Her last cycle was on September 16, 2018. She did struggle with nausea and diarrhea throughout treatment. She was hospitalized for pancreatitis in early September. She had her day 6 of radiation therapy yesterday. Approximately 2 hours afterward, she collapsed at the grocery store. CPR was performed and she was intubated in the field. She had spontaneous circulation return. On arrival to the ER, she had a brain CT which showed no acute intracranial process. She had an abdominal and pelvis CT, which showed consolidation of the bilateral lower lobes of the lung. She had extensive atherosclerotic calcification of the abdominal aorta and its branches. She underwent a chest and thorax CT angio, which was negative for pulmonary emboli. She was extubated this morning and unfortunately reintubated secondary to pulmonary edema, she is receiving sedation. PAST MEDICAL HISTORY: 1. Stage IA invasive ductal carcinoma of the left breast, status post 6 cycles of Taxotere and Cytoxan. 2. Diabetes mellitus, type 2. 3. Hypertension. 4. High cholesterol. 5. Osteoarthritis. 6. Anxiety and depression. 7. Hypothyroidism. 8. GERD. 9. History of colon polyps. 10. Vitamin D deficiency. 11. Gastroparesis. 12. History of pancreatitis. PAST SURGICAL HISTORY: 1. Hysterectomy. 2. Eye surgery. 3. EGD and colonoscopy. 4. Left breast biopsy. 5. MediPort placement. ALLERGIES: TO PENICILLIN. HOME MEDICATIONS: 1. Zenpep t.i.d. 2. Welchol 625 two p.o. b.i.d. 3. B12 daily. 4. [place] oil daily. 5. [employer] daily. 6. Prilosec 20 mg daily. 7. Olmesartan 40 mg daily. 8. Metoprolol succinate daily. 9. Metformin 1000 mg b.i.d. 10. Levothyroxine 225 mcg daily. 11. Fenofibrate 200 mg daily. 12. D2 weekly. 13. Crestor 20 mg daily. 14. [place] Thyroid 30 mg daily. 15. Aldactone 50 mg daily. 16. Abilify 1 mg daily. FAMILY HISTORY: Her father had oral cancer. He was a smoker. SOCIAL HISTORY: , has one child, lives with her spouse, 20 pack-year history of smoking. No alcohol or illicit drug use. REVIEW OF SYSTEMS: Unable to obtain secondary to intubation. PHYSICAL EXAMINATION: VITAL SIGNS: Temperature is 99.7, pulse is 99, respiratory rate 23, BP is 106/ 54. She is 96% on 100% FiO2. GENERAL: This is an obese female, in no acute distress. HEENT: Normocephalic, atraumatic. She has alopecia. NECK: Supple. CV: Regular rate and rhythm. LUNGS: She has crackles and rhonchi, anterior. ABDOMEN: Obese. Bowel sounds are positive. OG tube in place. EXTREMITIES: 1+ bilateral lower extremity edema. SKIN: No rash. HEMATOLOGICAL: No petechiae or purpura. NEUROLOGICAL: She is sedated and ventilated. PERTINENT LABS AND X-RAYS: Current WBCs are 3.0, hemoglobin 12.0, hematocrit 38.0, platelet count 407,000, 46% neutrophils, 38% lymphocytes, 10% monocytes. Sodium 141, potassium 3.7, chloride 103, CO2 is 23, BUN is 11, creatinine 1.08, lactic acid 1.8, calcium 8.9, bilirubin 0.2, AST is 23, ALT is 14, alkaline phosphatase is 45. Troponin is 0.148. BNP is 570.5. Serum total protein 6.6, albumin 3.9, globulin 2.7, lipase 107. Radiology per HPI. Her echocardiogram shows an EF of 40%-45% . ASSESSMENT: 1. Respiratory failure, status post cardiac arrest. 2. Stage IA breast cancer, on radiation therapy. 3. Morbid obesity. DISCUSSION: The patient received 6 cycles of Taxotere and Cytoxan. She did not receive anthracycline such as Adriamycin. It is unclear and unlikely that this cardiac event is related to her chemotherapy as she has had none in over 5 weeks and has recovered. We will notify Radiation Therapy that the patient is here. Appreciate assistance from [facility], will be here to provide supportive care. Thank you for the consult. Job ID: [id number] MTDD
[2018-10-26 05:09] LABS: #Lymphocytes 0.9 thou/uL (1.20-3.40); #Monocytes 0.5 thou/uL (0.11-0.59); #Neutrophils 6.7 thou/uL (1.40-6.50); %Basophils 0.1 % (0.0-1.0); %Eosinophils 0.3 % (0.0-10.0); %Lymphocytes 10.9 % (21.0-51.0); %Monocytes 5.7 % (0.0-10.0); Hemoglobin 9.8 g/dL (12.0-16.0); Mean Corpuscular Hemoglobin 33.3 pg (27.0-31.0); Mean Platelet Volume 7.4 fL (7.4-10.4); Platelet Count 235 thou/uL (130-400); RBC Distribution Width 15.4 % (11.5-14.5); Red Blood Cell (RBC) Count 2.93 mill/uL (4.20-5.40); White Blood Cell (WBC) Count 8.1 thou/uL (4.8-10.8)
[2018-10-26] MEDS: Levothyroxine Sodium 100 MCG TAB PO SCH (05:11)
[2018-10-26] MEDS: Levothyroxine Sodium 25 MCG TAB PO SCH (05:12)
[2018-10-26 05:24] LABS: Anion Gap 14 mmol/L (10-20); BUN (Urea Nitrogen) 26 mg/dL (9.8-20.1); Calc. Creatinine Clearance 96 mL/min (70-130); Calcium 8.3 mg/dL (7.8-10.44); Carbon Dioxide 26 mmol/L (23-31); Chloride 108 mmol/L (98-107); Estimated GFR-MDRD 47; Glucose 148 mg/dL (80-115); Potassium 4.1 mmol/L (3.5-5.1); Sodium 144 mmol/L (136-145)
[2018-10-26 07:19] LABS: Actual Bicarbonate (HCO3a) 25.8 mEq/L (22-28); Base Excess (BEa) 0.9 mEq/L (-2.0 to +3.0); CO2 Tension 42.1 mmHg (35.0-45.0); Calcium, Ionized 1.08 mmol/L (1.12-1.30); Carboxyhemoglobin (COHb) 0.3 gm% (0.0-3.0); Hemoglobin (Hb) 9.7 g/dL (12.0-16.0); O2 Tension (PaO2) 86.9 mmHg (> 80.0); Potassium - ABG Lab 3.88 mmol/L (3.70-5.30); Puncture Site LRA; pH, Arterial 7.41 (7.35-7.45)
[2018-10-26 07:20] LABS: ALV-art Gradient 288.275 (0-20)
--- NOTE | 2018-10-26 07:33 | CON ---
DATE OF CONSULTATION: REASON FOR CONSULTATION: Acute respiratory distress and cardiopulmonary arrest. HISTORY OF PRESENT ILLNESS: Ms. Nascimento is a 62-year-old woman who has not been seen or evaluated by Cardiology in the past. She has a history of metastatic breast cancer. She recently started radiation therapy. She has been on chemotherapy in the past. The history is obtained from the chart. She collapsed while at [employer]. She had no pulse. She underwent CPR for 4 minutes. She had ROSC shortly thereafter. As of this morning, she was extubated. She had an echo with Doppler performed that did suggest a mild depressed LVEF. She developed acute pulmonary edema shortly thereafter. She then required repeat intubation. PAST MEDICAL HISTORY: Metastatic breast cancer, diabetes mellitus, hypertension, previous pancreatitis, anxiety disorder, previous tobacco abuse. HOME MEDICATIONS: Include, 1. Spironolactone. 2. Metoprolol. 3. Synthroid. 4. Celexa. 5. Valsartan. 6. Thyroid. 7. Omeprazole. 8. Toprol. ALLERGIES: 1. CODEINE. 2. PENICILLIN. REVIEW OF SYSTEMS: Unobtainable. PHYSICAL EXAMINATION: GENERAL: The patient is currently intubated and sedated. VITAL SIGNS: Blood pressure 106/54, pulse 94. Temperature afebrile. NEUROLOGIC: The patient is alert and oriented x3 with no focal neurologic deficits. HEENT: Sclerae without icterus. Mouth has moist mucous membranes with normal pallor. NECK: No JVD. Carotid upstroke brisk. No bruits bilaterally. LUNGS: Clear to auscultation with unlabored respirations. BACK: No scoliosis or kyphosis. CARDIAC: Regular rate and rhythm with normal S1 and S2. No S3 or S4 noted. No significant rubs, murmurs, thrills, or gallops noted throughout the precordium. PMI is not displaced. There is no parasternal heave. ABDOMEN: Soft, nontender, nondistended. No peritoneal signs present. No hepatosplenomegaly. No abnormal striae. EXTREMITIES: 2+ femoral and 2+ dorsalis pedis pulses. No cyanosis, clubbing. 1 to 2+ pitting edema. SKIN: No gross abnormalities. PERTINENT LABORATORY DATA: Peak troponin 0.148. Hemoglobin 12, white blood cell count 3.0. BNP of 570. Echo Doppler shows LVEF of 40% to 45%. The anterolateral wall appears hypokinetic. She has a heavily calcified aortic valve with gradient suggesting moderate aortic stenosis. IMPRESSION: 1. Acute respiratory failure. 2. Cardiopulmonary arrest. 3. Metastatic breast cancer. RECOMMENDATIONS: Certainly possible that Ms. Nascimento has underlying coronary artery disease as the etiology to her current demise. She will likely need assessment of her coronary anatomy prior to discharge. We would recommend aggressive respiratory support. She is currently followed by Dr. Tree Wells. Her valve also appears to be worse than the gradients exhibited. Her mean and peak gradients were consistent with moderate aortic stenosis. The valve does not appear severe. We would recommend angio in addition to aortic valve study. At this point, I would continue with diuresis as blood pressure tolerates. I did spend 40 minutes of critical care time at Ms. Nascimento's bedside. Job ID: [id number]
[2018-10-26] MEDS: Cefepime 2 GM in Sodium Chloride 0.9% 100 ML IVPB SCH ×2 (08:15→20:31)
--- NOTE | 2018-10-26 08:16 | RAD ---
PORTABLE AP CHEST X-RAY: HISTORY: On ventilator. Follow-up evaluation. COMPARISON: 10/25/2018 FINDINGS: Endotracheal tube and nasogastric tube remain in place. There is increased interstitial and alveolar opacity seen in the right perihilar region and, to a lesser extent, increased interstitial opacities in the left perihilar region. There is suboptimal evaluation of the left lung base due to shallow d epth of inspiration and portable technique, but there is a question of consolidation at the left lung base. The cardiac silhouette is magnified by the depth of inspiration and the portable technique. No other interval change. IMPRESSION: 1. Bilateral interstitial and alveolar opacities, greater on the right and at the left lung base. T hese findings may be related to asymmetric pulmonary edema or possibly an infectious process. Contin ued followup to resolution is recommended. 2. Interval removal of the right subclavian central venous catheter. POS: [facility]
[2018-10-26] MEDS: Nitroglycerin 2% Ointment 1 INCH/1 GM Packet TOP SCH ×2 (08:17→20:31)
[2018-10-26] MEDS ORDERED: Sodium Chloride 0.9% 1,000 ML IV SCH (09:00)
[2018-10-26] MEDS ORDERED: Communication Order-Pharmacy FS SCH (09:00)
--- NOTE | 2018-10-26 09:13 | PRG ---
DATE OF SERVICE: 10/26/2018 SUBJECTIVE: This morning, she is awake, alert, and responsive on the vent. OBJECTIVE: VITAL SIGNS: Blood pressure 118/64, pulse 71, respiratory rate 23, saturations are 99%. I's and O's over the last 24 hours have been negative. GENERAL: She is awake, alert, and responsive. Afebrile. CHEST: Decreased breath sounds without any wheezing. CARDIAC: Normal S1, S2. No gallops. ABDOMEN: No masses. NEUROLOGICAL: She is awake, alert, and responsive. LABORATORY DATA: White count 8000, H and H 8 and 29, platelet count is normal. PO2 is 86, pCO2 40%, pH 7.41, rate 20, 60%, 420 tidal volume. Creatinine 1.16. Echocardiogram yesterday showed she had a decreased EF, measured about 40%. There is moderate aortic stenosis. IMPRESSION: Congestive heart failure, aortic stenosis, morbid obesity, breast cancer, probably sleep apnea, possibly aspiration pneumonia. PLAN: Adjust vent. Cardiology is considering catheterization today. Continue diuretics. Supportive care, PT. Nutrition. Supportive care. One half hour critical care time. Job ID: [id number]
--- NOTE | 2018-10-26 09:18 | CON ---
DATE OF CONSULTATION: 10/25/2018 HISTORY OF PRESENT ILLNESS: Ms. Nascimento is a 62-year-old female, who presented after cardiac arrest on 10/24/2018. She had received radiation that day and approximately 2 hours later at [facility], when she had told her , she had been feeling nauseous and experiencing diaphoresis and shortness of breath. Shortly after, she collapsed. CPR was performed for approximately 4 minutes when she had ROSC. This was followed by giving the patient ketamine and rocuronium prior to intubation. This morning, she was extubated, but when she was laid flat for echocardiogram became hypoxic. She was set up and placed on BiPAP with no improvement. Therefore, she was intubated again. She was receiving radiation yesterday for left invasive ductal breast carcinoma that she follows with Dr. Kelley for she was diagnosed in March 2018,has finished chemotherapy with Cytoxan and Taxotere. Yesterday she received her 6th round of radiation. She has no known cardiac history. The patient was currently intubated and sedated. Therefore, history was taken from her medical record. No family was present in the room. PAST MEDICAL HISTORY: Left invasive ductal breast carcinoma in March 2018, type 2 diabetes, hypertension, hyperlipidemia, osteoarthritis, anxiety, depression, hypothyroidism, GERD, vitamin D deficiency, gastroparesis, tubular adenomas found on colonoscopy in 2016 with recommended follow up to 2019. PAST SURGICAL HISTORY: 1. MediPort placement in 2018. 2. Hysterectomy in 1980. 3. Breast biopsy on March 10, 2018. 4. Eye surgery in 1988. SOCIAL HISTORY: 1.5 packs per day, quit three years ago. Occasional alcohol use. Denies drug use. FAMILY HISTORY: Unable to obtain. ALLERGIES: TYLENOL, CODEINE, HYDROCODONE, PENICILLIN, PROPOXYPHENE, AND TRAMADOL. MEDICATIONS: 1. Spironolactone. 2. Metoprolol succinate 75 mg at bedtime. 3. Multivitamin. 4. Omeprazole 20 mg b.i.d. 5. Rosuvastatin 5 mg at bedtime. 6. [place] Thyroid 30 mg. 7. Valsartan 320 mg at bedtime. 8. Aripiprazole 1 mg q.a.m. 9. Synjardy XR 25-1000 mg q.a.m. 10. Escitalopram 20 mg q.a.m. 11. Levothyroxine 225 mcg q.a.m. 12. Vitamin D3 of 2000 units daily. 13. Welchol 2 tablets b.i.d. 14. Vitamin D2 one tablet every 7 days. 15. Fenofibrate 200 mg at bedtime. 16. Probiotic one capsule daily. REVIEW OF SYSTEMS: Unable to obtain as the patient is intubated and sedated. PHYSICAL EXAMINATION: VITAL SIGNS: Blood pressure 92/49, temperature 99.9, pulse 88, SIMV, FiO2 of 100%, volume 400, PEEP 12, and respiratory rate 20. GENERAL: Intubated and mechanically ventilated. HEENT: Eyes, normal conjunctivae. Pupils equal and reactive. NECK: Trachea midline. CARDIOVASCULAR: Regular rate and rhythm. No murmurs. Mild bilateral nonpitting edema. Dorsalis pedis pulses 2+. Radial pulses 2+. RESPIRATORY: Crackles bilaterally, equal chest rise on ventilator. ABDOMEN: Soft, distended, and nontender. Tympanic to percussion. Bowel sounds present. SKIN: Right-sided femoral line and right chest wall MediPort. : Rosa catheter in place. LABORATORY DATA: White blood cell count 3. Hemoglobin 12 and MCV 99.7. Most recent ABG; pH of 7.11, pCO2 of 84.1, and pO2 of 105.3. Lactic acid initially 8.8, most recently decreased to 1.8. Troponin 0.013, 0.056, and 0.148. BNP elevated at 570.5. Lipase elevated at 107. UA remarkable for 500 glucose, 300 protein, trace blood, 7 to 10 white blood cells, and 3+ bacteria. UDS negative. DIAGNOSTIC IMAGIN. Brain CT, no acute intracranial process. 2. Abdomen and pelvis CT, dense consolidation within bilateral lung bases, which may be on the basis of infectious pneumonitis, pulmonary edema, and/or aspiration. Nonspecific bilateral adrenal nodules, which dedicated followup adrenal mass protocol, CT is advised. Prominent atherosclerotic disease involving abdominal aorta and its branches. 3. Chest CTA, no central or segmental pulmonary embolus. Bibasilar airspace opacities suspicious for pneumonia or aspiration. Perihilar ground-glass opacities may reflect pneumonitis or edema. Right adrenal nodule incompletely characterized. 4. Chest x-ray on 10/25/2018 at 0725 hours, right-sided MediPort catheter. Endotracheal tube level at the clavicle, nasogastric tube extends beyond the diaphragm. Heart is enlarged. Pulmonary vessels are prominent. Bilateral perihilar interstitial and alveolar opacities. Opacification of the left hemidiaphragm, likely due to pleural and parenchymal change. No pneumothorax. 5. Chest x-ray 10/25/2018 at 1120 hours, mild progressive pulmonary edema. 6. Most recently her echocardiogram, which shows EF 40% to 45%. Left atrium is [id number] dilated. Mild mitral regurgitation present. Moderate aortic stenosis present. Mild tricuspid regurgitation present. ASSESSMENT AND PLAN: 1. Flash pulmonary edema. Ejection fraction on 10/25/2018 with ejection fraction of 40% to 45%. The patient has no known history of cardiac disease. She also has moderate aortic stenosis present and [id number] dilated left atrium. Continue IV diuresis and once the patient is stable from a Pulmonology standpoint, we will take the patient for coronary artery angiogram. Continue IV diuresis. 2. Pneumonia. Continue vancomycin and Zosyn. Ordered procalcitonin. 3. Left invasive ductal breast cancer, status post chemotherapy and currently receiving radiation. The patient was seen and evaluated with Dr. Gilbert. Job ID: [id number] [facility]
--- NOTE | 2018-10-26 09:19 | PRG ---
DATE OF SERVICE: 10/26/2018 SUBJECTIVE: Ms. Nascimento is awake today. She is alert. She continues to be intubated, but answering questions appropriately. She is currently off all pressors. OBJECTIVE: GENERAL: Patient is a pleasant female, who is in no acute distress. The patient appears their stated age. She is currently intubated, but alert and awake and answering questions appropriately. VITAL SIGNS: Blood pressure 146/60, pulse 96, respirations 20. NEUROLOGIC: The patient is alert and oriented x3 with no focal neurologic deficits. HEENT: Sclerae without icterus. Mouth has moist mucous membranes with normal pallor. NECK: No JVD. Carotid upstroke brisk. No bruits bilaterally. LUNGS: Clear to auscultation with unlabored respirations. BACK: No scoliosis or kyphosis. CARDIAC: Regular rate and rhythm with normal S1 and S2. No S3 or S4 noted. No significant rubs, murmurs, thrills, or gallops noted throughout the precordium. PMI is not displaced. There is no parasternal heave. ABDOMEN: Soft, nontender, nondistended. No peritoneal signs present. No hepatosplenomegaly. No abnormal striae. EXTREMITIES: 2+ femoral and 2+ dorsalis pedis pulses. No cyanosis, clubbing, or edema. SKIN: No gross abnormalities. PERTINENT LABORATORY DATA: Hemoglobin 9.8. Creatinine 1.1. BNP of 570. IMPRESSION: 1. Acute pulmonary edema. 2. Moderate aortic stenosis. 3. Respiratory failure. RECOMMENDATIONS: At this point, I am concerned about a few issues from a CV standpoint. She may have diffuse coronary artery disease with the etiology to acute pulmonary edema. Her aortic valve may also be worse than noted on echo. At this point, recommend left and right heart catheterization to assess both her coronary anatomy and her aortic valve. I discussed the procedure in full detail with Mr. Nascimento. The risks of the procedure were also discussed. The risks of the procedure include but are not limited to the following: , stroke, MS, need for emergency surgery, loss of limb, bleeding, and infection, as well as a reaction to the dye causing kidney failure and needing long-term dialysis. I also discussed the risks of PCI to include all of the above including coronary dissection and perforation in addition to acute stent thrombosis and restenosis. All questions about the procedure were answered. Given the above, the patient agreed to proceed with coronary angiography and possible PCI. All questions were answered. I also discussed drug-coated versus nondrug coated stent placement. There were no contraindications. We will proceed if needed. I have rechecked her , Celestine, and left a voicemail. Further recommendation will be pending the above. Job ID: [id number]
[2018-10-26] MEDS ORDERED: Furosemide 40 MG/4 ML VIAL SLOW IVP SCH (09:30)
--- NOTE | 2018-10-26 09:55 | OP ---
DATE OF PROCEDURE: 10/25/2018 PREOPERATIVE DIAGNOSES: Breast cancer, has completed chemotherapy and completed use of her MediPort with slight redness and tenderness about the MediPort site, status post cardiac arrest and respiratory failure, undergoing cardiac cath soon, still yet to complete her radiation therapy for breast cancer. POSTOPERATIVE DIAGNOSES: Breast cancer, has completed chemotherapy and completed use of her MediPort with slight redness and tenderness about the MediPort site, status post cardiac arrest and respiratory failure, undergoing cardiac cath soon, still yet to complete her radiation therapy for breast cancer. PROCEDURE PERFORMED: Removal of right subclavian vein MediPort. ANESTHESIA: 0.5% Marcaine with epinephrine 30 mL mixed to 2% Xylocaine 10 mL. FINDINGS: No purulent material. No evidence of deep infection. INDICATIONS: The patient presented after radiation therapy and suffering syncopal episode at the grocery store. She was attended by Paramedics, given CPR for cardiac arrest, suffered respiratory failure. Dr. Wells had asked me to look at her MediPort as it is being slightly reddened. The patient's family present reports that she has been having pain at the MediPort site since placement, getting worse lately, feeling warm. She has had low-grade fevers. Blood cultures negative to date except one culture Staph epi. Decision is to remove the MediPort since she has completed use. DESCRIPTION OF PROCEDURE: The patient at the bedside in ICU. Her paraclavicular area of chest was prepared with ChloraPrep and draped in routine fashion. Local anesthetic mixture was infiltrated into the skin and subcutaneous tissue. Incision was made through the old scar MediPort and catheter removed intact, discarded. No active infection noted. No purulence noted. Subcutaneous tissue was approximated with 4-0 Monocryl, skin with subdermal 4-0 Monocryl, and Dermaglue applied. The patient tolerated the procedure well. Job ID: [id number]
--- NOTE | 2018-10-26 10:07 | PRG ---
DATE OF SERVICE: 10/26/2018 Yari Nascimento is still on the ventilator this morning. Dr. Gilbert has planned a cardiac catheterization to further evaluate her cardiac arrest. The patient's MediPort removal site right chest looks good. There is no evidence of infection. At this point, I will see her as needed. Please call if necessary. Job ID: [id number]
[2018-10-26] MEDS: Escitalopram Oxalate 20 mg Tablet PO SCH (10:17)
[2018-10-26] MEDS: Enoxaparin Sodium 40 MG/0.4 ML SYRINGE SC SCH (10:17)
[2018-10-26] MEDS: Lisinopril 10 MG TAB PO SCH (10:17)
[2018-10-26] MEDS ORDERED: Heparin 10,000 UNITS/1 ML VIAL ONE (11:13)
[2018-10-26] MEDS ORDERED: Lidocaine 1% (PF) 30 ML VIAL ONE (11:13)
[2018-10-26] MEDS: Lorazepam 2 MG/ML VIAL SLOW IVP PRN (11:43)
[2018-10-26] MEDS: Spironolactone 25 MG TAB PO SCH (11:43)
--- NOTE | 2018-10-26 12:13 | PQF ---
FALGUNI JOHNSONLitzy RAMIREZILANANIKOLE CARTER [id number] [id number] CLINICAL DOCUMENTATION IMPROVEMENT CLARIFICATION FORM: ICD-10 Updated PLEASE DO AN ADDENDUM TO THE PROGRESS NOTE WITH ANY DOCUMENTATION UPDATES OR ADDITIONS AND CARRY THROUGH TO DC SUMMARY. THANK YOU. DATE: 10/26/18 ATTN:DR. Champ GORE Please exercise your independent, professional judgment in responding to the clarification form. Clinical indicators are provided on the bottom of this form for your review. Please check appropriate box(s): CONGESTIVE HEART FAILURE: A. TYPE: [x ] Systolic / HFrEF [ ] Diastolic / HFpEF [ ] Combined Systolic / Diastolic B. ACUITY [ x ] Acute [ ] Acute on Chronic [ ] Chronic [ ] Other diagnosis [ ] Unable to determine In addition, please specify: Present on Admission (POA): [ x ] Yes [ ] No [ ] Unable to determine For continuity of documentation, please document condition throughout progress notes and discharge summary. Thank You. CLINICAL INDICATORS - SIGNS / SYMPTOMS / LABS 10/25 BNP 570.5 10/25 CXR IMPRESSION: CONGESTIVE HEART FAILURE 10/25 CONSULT (GALLARDO) IMPRESSION: 3). CONGESTIVE HEART FAILURE, RULE OUT 10/25 ECHO: EF IS 40-45% LEFT ATRIUM IS MOD TO SEVERELY DILATED, MILD MITRAL REGURGITATION IS PRESENT, MODERATED AORTIC STENOSIS IS PRESENT, MILD TRICUSPID REGURGITATION 10/25 CARDIOLOGY CONSULT (CODY) RECOMMENDATIONS: HER VALVE APPEARS TO BE WORSE THAN THE GRADIENT EXHIBITED. HER MEAN AND PEAK GRADIENTS WERE CONSISTENT WITH MODERATE AORTIC STENOSIS. THE VALVE DOES NOT APPEAR SEVERE. WE WOULD RECOMMEND ANGIO IN ADDITION TO AORTIC VALVE STUDY. I WOULD CONTINUE WITH DIURESIS BLOOD PRESSURE TOLERATES 10/25 PN (JUAN) A/P : 2). CONGESTIVE HEART FAILURE , SUSPECTED 10/26 PN (SAMI) IMPRESSION: CONGESTIVE HEART FAILURE RISK: CARDIAC ARREST DX HTN, DM, REDUCED EF, FORMER SMOKER TREATMENTS: LASIX IV ECHO ORDERED 10/25 CARDIOLOGY CONSULT ICU MONITORING THANK YOU! ZAHRAA (This form is maintained as a part of the permanent medical record) 2014 [employer]. All Rights Reserved [email or web address] [phone] MTDD
[2018-10-26] MEDS ORDERED: Fentanyl 100 MCG/2 ML VIAL ONE (12:33)
[2018-10-26] MEDS ORDERED: Midazolam HCl 2 mg/2 ml Vial ONE ×2 (12:33→12:52)
--- NOTE | 2018-10-26 12:36 | PQF ---
SOLEDAD JOHNSON CHUNG REESJOENIKOLE [id number] U-[id number] CLINICAL DOCUMENTATION IMPROVEMENT CLARIFICATION FORM: ICD-10 Updated PLEASE DO AN ADDENDUM TO THE PROGRESS NOTE WITH ANY DOCUMENTATION UPDATES OR ADDITIONS AND CARRY THROUGH TO DC SUMMARY. THANK YOU. DATE: 10/26/2018 ATTN:DR. Champ GORE Please exercise your independent, professional judgment in responding to the clarification form. Clinical indicators are provided on the bottom of this form for your review. Please check appropriate box(s): [ ] Aspiration Pneumonia [ ] Empirically treating Gram Negative Pneumonia [ x] Pneumonia of unknown etiology [ x ] Other diagnosis its more of chf with volume overload/flash pulm edema than pna [ ] Unable to determine In addition, please specify: Present on Admission (POA): [ x ] Yes [ ] No [ ] Unable to determine For continuity of documentation, please document condition throughout progress notes and discharge summary. Thank You. CLINICAL INDICATORS - SIGNS / SYMPTOMS / LABS 10/24 H&P (MARTINEZ) A/P : 2. PNEUMONIA. WE WILL CONTINUE THE PATIENT ON VANCOMYCIN AND ZOSYN, WHICH HAVE ALREADY BEEN STARTED. WE WILL FOLLOW BLOOD CULTURES 10/26 PN (GALLARDO) IMPRESSION: POSSIBLE ASPIRATION PNEUMONIA 10/26 CXR IMPRESSION BILATERAL INTERSTITIAL AND ALVEOLAR OPACITIES, GREATER ON THE RIGHT AND AT THE LEFT LUNG BASE. THESE FINDINGS MAY BE RELATED TO ASYMMETRIC PULMONARY EDEMA OR POSSIBLE AN INFECTIOUS PROCESS. RISK: CARDIAC ARREST MECHANICALLY VENTILATED TREATMENTS: SERIAL CXR PULMONOLOGY CONSULT MAXIPIME IV (10/25-PRESENT THANK YOU! ZAHRAA (This form is maintained as a part of the permanent medical record) 2014 [employer]. All Rights Reserved [email or web address] [phone] [email or web address]
[2018-10-26] MEDS ORDERED: Diltiazem 125 MG/25 ML ONE (12:38)
[2018-10-26] MEDS ORDERED: Sodium Chloride 0.9% 200 ML IV PRN (13:18)
[2018-10-26] MEDS ORDERED: Nitroglycerin 0.4 MG TAB (25 Tab Bottle) SL PRN (13:18)
[2018-10-26] MEDS ORDERED: Iopamidol 370 76% 100 ML VIAL ONE (13:31)
--- NOTE | 2018-10-26 14:11 | PDOC.HOSPP ---
- Subjective Encounter Date: 10/26/18 Encounter Time: 11:40 Subjective: awake on vent at bedside - Objective Vital Signs & Weight: Vital Signs (12 hours) Temp Pulse Resp BP Pulse Ox 10/26/18 10:24 96 113/47 L 10/26/18 10:22 95 22 H 96 10/26/18 10:17 118/64 10/26/18 10:00 21 H 10/26/18 08:08 23 H 10/26/18 08:00 99.3 F 10/26/18 07:48 26 H 96 10/26/18 07:04 84 118/64 10/26/18 07:02 81 23 H 99 10/26/18 06:00 20 10/26/18 04:00 98.5 F 20 10/26/18 02:35 88 99/42 L Weight Admit Weight 266 lb 8.622 oz Weight 261 lb 14.546 oz Most Recent Monitor Data Heart Rate from ECG 95 NIBP 135/55 NIBP BP-Mean 81 Respiration from ECG 22 SpO2 98 I&O: 10/25/18 10/26/18 10/27/18 06:59 06:59 06:59 Intake Total 1442 1392 160 Output Total 595 1782 990 Balance 599 -051 -296 Result Diagrams: 10/26/18 04:50 10/26/18 04:50 Additional Labs: Accuchecks 10/26/18 10/25/18 10/25/18 09:15 23:54 16:03 POC Glucose 161 H 145 H 141 H 10/25/18 13:00 POC Glucose 207 H ROS - Medication Medications: Active Medications Generic Name Dose Route Start Last Admin Trade Name Freq PRN Reason Stop Dose Admin Albuterol/Ipratropium 3 ml 10/25/18 11:00 10/26/18 10:22 Duoneb NEB 3 ml [id number] PATTI Administration Enoxaparin Sodium 40 mg 10/25/18 09:00 10/26/18 10:17 Lovenox SC Not Given 0900 PATTI Escitalopram Oxalate 20 mg 10/25/18 09:00 10/26/18 10:17 Lexapro PO Not Given QAM PATTI Cefepime HCl 2 gm/ Sodium 100 mls @ 200 mls/hr 10/25/18 09:00 10/26/18 08:15 Chloride IVPB 100 mls Q12HR PATTI Administration Fentanyl Citrate 2,000 mcg/ 100 mls @ 0 mls/hr 10/25/18 11:24 10/25/18 12:18 Sodium Chloride IV 11/24/18 11:24 100 mls INF PATTI Administration Protocol Per Protocol Levothyroxine Sodium 200 mcg 10/26/18 06:00 10/26/18 05:11 Synthroid PO 200 mcg 0600 PATTI Administration Levothyroxine Sodium 25 mcg 10/26/18 06:00 10/26/18 05:12 Synthroid PO 25 mcg 0600 PATTI Administration Lisinopril 10 mg 10/26/18 09:00 10/26/18 10:17 Zestril PO Not Given DAILY PATTI Lorazepam 2 mg 10/25/18 11:24 10/26/18 11:43 Ativan SLOW IVP 11/24/18 11:24 2 mg Q1H PRN Administration Breakthrough agitation Metoprolol Succinate 50 mg 10/25/18 09:00 10/26/18 08:17 Toprol Xl PO 50 mg QAM PATTI Administration Nitroglycerin 1 inch 10/25/18 21:00 10/26/18 08:17 Nitro-Bid 2% Ointment TOP 1 inch BID PATTI Administration Spironolactone 25 mg 10/25/18 09:00 10/26/18 11:43 Aldactone PO Not Given QAM PATTI - Exam NAD, awake alert Eye: PERRL, anicteric sclera ENT: no oropharyngeal lesions, dry oral mucosa Neck: supple, no JVD Heart: RRR, no murmur Respiratory: no wheezes, no rales, rhonchi Gastrointestinal: soft, non-distended, normal bowel sounds Extremities: no cyanosis, no edema Neurological: CN's grossly intact, no focal deficits Psychiatric: normal affect, A&O x 3 Hosp A/P (1) CHF (congestive heart failure) Code(s): I50.9 - HEART FAILURE, UNSPECIFIED Status: Acute Qualifiers: Heart failure type: systolic Heart failure chronicity: acute Qualified Code(s): I50.21 - Acute systolic (congestive) heart failure (2) Acute respiratory failure with hypoxia Code(s): J96.01 - ACUTE RESPIRATORY FAILURE WITH HYPOXIA Status: Acute (3) Obesity (BMI 30-39.9) Code(s): E66.9 - OBESITY, UNSPECIFIED Status: Chronic (4) Chronic anemia Code(s): D64.9 - ANEMIA, UNSPECIFIED Status: Chronic (5) Hypothyroidism Code(s): E03.9 - HYPOTHYROIDISM, UNSPECIFIED Status: Chronic (6) HTN (hypertension) Code(s): I10 - ESSENTIAL (PRIMARY) HYPERTENSION Status: Chronic Qualifiers: Hypertension type: essential hypertension Qualified Code(s): I10 - Essential (primary) hypertension (7) Breast cancer Status: Chronic Qualifiers: Patient sex: female (8) DM2 (diabetes mellitus, type 2) Status: Chronic Qualifiers: Diabetes mellitus shelter insulin use: without extermination inspector use - Plan diuresing well for cardiac cath today echo showed ef of 40%, mod has finished 6 cycles of chemo taxotere and cytoxan, on radiation therapy continue toprol xl, lasix, spironolactone, lisinopril, synthroid, nitropaste cefepime, nebs
[2018-10-26] MEDS: Sodium Chloride 0.9% 1,000 ML IV SCH ×2 (15:02→20:39)
[2018-10-26] MEDS: Furosemide 40 MG/4 ML VIAL SLOW IVP SCH (15:03)
[2018-10-26] MEDS: fentaNYL Citrate/PF 2,000 MCG in Sodium Chloride 0.9% 60 ML IV SCH (15:07)
[2018-10-26] MEDS ORDERED: Digoxin 0.5 MG/2 ML AMP SLOW IVP SCH (15:45)
[2018-10-26] MEDS ORDERED: Pantoprazole 40 MG VIAL ONE (20:18)
[2018-10-26] MEDS: Ondansetron PF 4 MG/2 ML Vial IVP PRN (20:30)
[2018-10-26] MEDS: Pantoprazole 40 MG VIAL IVP SCH (20:31)
[2018-10-26] MEDS: Sodium Chloride 0.9% (PF) 10 ML VIAL FS SCH (20:39)
[2018-10-27] MEDS: Insulin Regular 300 UNITS/3 ML VIAL SC PRN ×4 (01:11→23:54)
[2018-10-27] MEDS: Levothyroxine Sodium 25 MCG TAB PO SCH (05:13)
[2018-10-27] MEDS: Levothyroxine Sodium 100 MCG TAB PO SCH (05:13)
[2018-10-27] MEDS: Furosemide 40 MG/4 ML VIAL SLOW IVP SCH ×2 (05:14→14:28)
[2018-10-27 05:33] LABS: #Eosinphils 0.1 thou/uL (0.0-0.7); #Lymphocytes 0.7 thou/uL (1.20-3.40); #Monocytes 0.4 thou/uL (0.11-0.59); #Neutrophils 4.2 thou/uL (1.40-6.50); %Basophils 0.3 % (0.0-1.0); %Eosinophils 1.5 % (0.0-10.0); %Monocytes 6.9 % (0.0-10.0); %Neutrophils 78.4 % (42.0-75.0); Hemoglobin 8.3 g/dL (12.0-16.0); Mean Corpuscular HGB CONC 31.8 g/dL (32.0-36.0); Mean Platelet Volume 7.4 fL (7.4-10.4); Platelet Count 227 thou/uL (130-400); RBC Distribution Width 15.2 % (11.5-14.5); White Blood Cell (WBC) Count 5.4 thou/uL (4.8-10.8)
[2018-10-27] MEDS: Ondansetron PF 4 MG/2 ML Vial IVP PRN ×2 (05:49→10:21)
[2018-10-27 05:55] LABS: Anion Gap 15 mmol/L (10-20); BUN (Urea Nitrogen) 29 mg/dL (9.8-20.1); Calc. Creatinine Clearance 116 mL/min (70-130); Calcium 8.5 mg/dL (7.8-10.44); Carbon Dioxide 27 mmol/L (23-31); Chloride 108 mmol/L (98-107); Estimated GFR-MDRD 60; Glucose 142 mg/dL (80-115); Potassium 3.9 mmol/L (3.5-5.1); Sodium 146 mmol/L (136-145)
[2018-10-27 06:05] LABS: Digoxin 0.59 ng/mL (0.8-2.0)
[2018-10-27] MEDS: Sodium Chloride 0.9% 1,000 ML IV SCH (07:24)
[2018-10-27 08:06] LABS: Actual Bicarbonate (HCO3a) 25.2 mEq/L (22-28); Base Excess (BEa) 0.6 mEq/L (-2.0 to +3.0); CO2 Tension 40.1 mmHg (35.0-45.0); Calcium, Ionized 1.13 mmol/L (1.12-1.30); Carboxyhemoglobin (COHb) 1.7 gm% (0.0-3.0); Hemoglobin (Hb) 9.7 g/dL (12.0-16.0); O2 Tension (PaO2) 60.8 mmHg (> 80.0); Potassium - ABG Lab 3.49 mmol/L (3.70-5.30); pH, Arterial 7.42 (7.35-7.45)
[2018-10-27 08:07] LABS: Puncture Site RRA
[2018-10-27 08:08] LABS: ALV-art Gradient 138.625 (0-20)
--- NOTE | 2018-10-27 08:10 | PRG ---
DATE OF SERVICE: 10/27/2018 SUBJECTIVE: This morning, awake, alert, responsive on the vent. OBJECTIVE: VITAL SIGNS: Blood pressure 141/68, temperature 98, respirations 18, afebrile, sats 100%. Is and Os consistently negative. CHEST: Decreased breath sounds. No wheezing. CARDIAC: Normal S1 and S2. No gallops. ABDOMEN: No masses. LABORATORY DATA: GFR is 60. Lytes are normal. H and H are stable. Platelet count is normal. White count is normal. Blood culture is still growing Staph epi. IMAGING STUDIES: Chest x-ray pending. IMPRESSION: 1. Respiratory failure, congestive heart failure. 2. Aortic stenosis. 3. Breast cancer, undergoing radiation. PLAN: Continue antibiotics. Continue neb treatments. Continue diuretics. We will consider weaning and extubation today. One-half hour of critical time. Job ID: [id number]
[2018-10-27] MEDS: Nitroglycerin 2% Ointment 1 INCH/1 GM Packet TOP SCH ×2 (10:20→19:29)
[2018-10-27] MEDS: Escitalopram Oxalate 20 mg Tablet PO SCH (10:20)
[2018-10-27] MEDS: Lisinopril 10 MG TAB PO SCH (10:21)
[2018-10-27] MEDS: Cefepime 2 GM in Sodium Chloride 0.9% 100 ML IVPB SCH ×2 (10:21→19:28)
[2018-10-27] MEDS: Enoxaparin Sodium 40 MG/0.4 ML SYRINGE SC SCH (10:21)
[2018-10-27] MEDS: Spironolactone 25 MG TAB PO SCH (10:21)
--- NOTE | 2018-10-27 10:23 | RAD ---
PORTABLE AP CHEST: Date: 10/27/18 HISTORY: CHF. COMPARISON: 10/26/18. FINDINGS: Endotracheal tube and nasogastric tubes remain in place. Again noted are bilateral interstitial and a lveolar opacities, greater in the right perihilar location. There is also mild increased density at t he left lung base, which may be related to small left pleural effusion and atelectasis. No other inte rval change. IMPRESSION: Given differences in technique, there are overall stable bilateral interstitial and alveolar opacitie s, again greater on the right and at the left lung base. Findings again could be related to either as ymmetric pulmonary edema or infectious process. There is probable left pleural effusion present. POS: LIN
--- NOTE | 2018-10-27 12:56 | PDOC.HOSPP ---
- Subjective Encounter Date: 10/27/18 Encounter Time: 12:00 Subjective: awake, on vent follows verbal stimuli not in distress - Objective Vital Signs & Weight: Vital Signs (12 hours) Temp Pulse Pulse Pulse Resp BP BP 10/27/18 12:00 98.2 F 20 10/27/18 10:21 104/65 10/27/18 10:00 26 H 10/27/18 09:57 102 H 104/65 10/27/18 09:55 102 H 30 H 10/27/18 09:37 102 H 100 119/57 L 10/27/18 08:22 100 92/74 10/27/18 08:00 25 H 10/27/18 07:00 98.3 F 10/27/18 06:52 91 138/68 10/27/18 06:48 91 16 10/27/18 06:00 18 10/27/18 05:00 98.5 F 10/27/18 04:00 16 10/27/18 02:33 86 111/48 L 10/27/18 02:00 16 BP Pulse Ox Pulse Ox Pulse Ox 10/27/18 12:00 10/27/18 10:21 10/27/18 10:00 10/27/18 09:57 10/27/18 09:55 95 10/27/18 09:37 104/65 94 L 95 10/27/18 08:22 10/27/18 08:00 95 10/27/18 07:00 10/27/18 06:52 10/27/18 06:48 97 10/27/18 06:00 10/27/18 05:00 10/27/18 04:00 10/27/18 02:33 10/27/18 02:00 Weight Admit Weight 266 lb 8.622 oz Weight 261 lb 14.546 oz Most Recent Monitor Data Heart Rate from ECG 96 NIBP 130/68 NIBP BP-Mean 88 Respiration from ECG 22 SpO2 95 I&O: 10/26/18 10/27/18 10/28/18 06:59 06:59 06:59 Intake Total 1392 2667 100 Output Total 1782 2965 1310 Balance -961 -356 -1219 Result Diagrams: 10/27/18 04:50 10/27/18 04:50 Additional Labs: Accuchecks 10/27/18 10/26/18 01:09 17:52 POC Glucose 170 H 148 H ROS - Medication Medications: Active Medications Generic Name Dose Route Start Last Admin Trade Name Freq PRN Reason Stop Dose Admin Albuterol/Ipratropium 3 ml 10/25/18 11:00 10/27/18 09:55 Duoneb NEB 3 ml [id number] PATTI Administration Enoxaparin Sodium 40 mg 10/25/18 09:00 10/27/18 10:21 Lovenox SC 40 mg 0900 PATTI Administration Escitalopram Oxalate 20 mg 10/25/18 09:00 10/27/18 10:20 Lexapro PO 20 mg QAM PATTI Administration Furosemide 40 mg 10/26/18 14:00 10/27/18 05:14 Lasix SLOW IVP 40 mg 0600,1400 PATTI Administration Cefepime HCl 2 gm/ Sodium 100 mls @ 200 mls/hr 10/25/18 09:00 10/27/18 10:21 Chloride IVPB 100 mls Q12HR PATTI Administration Fentanyl Citrate 2,000 mcg/ 100 mls @ 0 mls/hr 10/25/18 11:24 10/26/18 15:07 Sodium Chloride IV 11/24/18 11:24 100 mls INF PATTI Administration Protocol Per Protocol Insulin Human Regular 0 units 10/25/18 12:09 10/27/18 01:11 Humulin R SC 2 units .MODERATE SLIDING SC PRN Administration Moderate Correctional Scale Levothyroxine Sodium 200 mcg 10/26/18 06:00 10/27/18 05:13 Synthroid PO 200 mcg 0600 PATTI Administration Lisinopril 10 mg 10/26/18 09:00 10/27/18 10:21 Zestril PO 10 mg DAILY PATTI Administration Lorazepam 2 mg 10/25/18 11:24 10/26/18 11:43 Ativan SLOW IVP 11/24/18 11:24 2 mg Q1H PRN Administration Breakthrough agitation Metoprolol Succinate 50 mg 10/25/18 09:00 10/27/18 10:20 Toprol Xl PO 50 mg QAM PATTI Administration Nitroglycerin 1 inch 10/25/18 21:00 10/27/18 10:20 Nitro-Bid 2% Ointment TOP 1 inch BID PATTI Administration Ondansetron HCl 4 mg 10/24/18 19:02 10/27/18 10:21 Zofran IVP 4 mg Q6H PRN Administration Nausea/Vomiting Pantoprazole Sodium 40 mg 10/26/18 21:00 10/26/18 20:31 Protonix IVP 40 mg 2100 PATTI Administration Sodium Chloride 10 ml 10/26/18 03:18 10/27/18 10:21 Flush - Normal Saline IVF 10 ml PRN PRN Administration Saline Flush Sodium Chloride 10 ml 10/26/18 21:00 10/26/18 20:39 Normal Saline Pf FS Not Given 2100 PATTI Spironolactone 25 mg 10/25/18 09:00 10/27/18 10:21 Aldactone PO 25 mg QAM PATTI Administration - Exam NAD, ill appearing Eye: PERRL, anicteric sclera ENT: no oropharyngeal lesions, dry oral mucosa Neck: supple, no JVD Heart: RRR, no murmur Respiratory: no wheezes, rales, rhonchi Gastrointestinal: soft, non-tender, normal bowel sounds Extremities: no cyanosis, 1+ LE edema Neurological: CN's grossly intact, no focal deficits Psychiatric: normal affect, A&O x 3 Hosp A/P (1) CHF (congestive heart failure) Code(s): I50.9 - HEART FAILURE, UNSPECIFIED Status: Acute Qualifiers: Heart failure type: systolic Heart failure chronicity: acute Qualified Code(s): I50.21 - Acute systolic (congestive) heart failure (2) Acute respiratory failure with hypoxia Code(s): J96.01 - ACUTE RESPIRATORY FAILURE WITH HYPOXIA Status: Acute (3) Obesity (BMI 30-39.9) Code(s): E66.9 - OBESITY, UNSPECIFIED Status: Chronic (4) Chronic anemia Code(s): D64.9 - ANEMIA, UNSPECIFIED Status: Chronic (5) Hypothyroidism Code(s): E03.9 - HYPOTHYROIDISM, UNSPECIFIED Status: Chronic (6) HTN (hypertension) Code(s): I10 - ESSENTIAL (PRIMARY) HYPERTENSION Status: Chronic Qualifiers: Hypertension type: essential hypertension Qualified Code(s): I10 - Essential (primary) hypertension (7) Breast cancer Status: Chronic Qualifiers: Patient sex: female (8) DM2 (diabetes mellitus, type 2) Status: Chronic Qualifiers: Diabetes mellitus intermediate designer insulin use: without intermediate designer use (9) CAD (coronary artery disease) Code(s): I25.10 - ATHSCL HEART DISEASE OF [place] CORONARY ARTERY W/O ANG PCTRS Status: Acute Qualifiers: Coronary Disease-Associated Artery/Lesion type: [place] artery [place] vs. transplanted heart: [place] heart Associated angina: without angina Qualified Code(s): I25.10 - Atherosclerotic heart disease of [place] coronary artery without angina pectoris - Plan diuresing well official cardiac cath results pending, per staff had 2 vessel disease, for intervention when she is more stable. echo showed ef of 40%, mod has finished 6 cycles of chemo taxotere and cytoxan, on radiation therapy continue toprol xl, lasix, spironolactone, lisinopril, synthroid, nitropaste cefepime, nebs hemostable
[2018-10-27] MEDS: Pantoprazole 40 MG VIAL IVP SCH (19:29)
[2018-10-27] MEDS: Sodium Chloride 0.9% (PF) 10 ML VIAL FS SCH (19:41)
[2018-10-28] MEDS: Levothyroxine Sodium 100 MCG TAB PO SCH (05:09)
[2018-10-28] MEDS: Furosemide 40 MG/4 ML VIAL SLOW IVP SCH ×2 (05:09→14:25)
[2018-10-28 06:10] LABS: #Basophils 0.1 thou/uL (0.0-0.2); #Eosinphils 0.2 thou/uL (0.0-0.7); #Lymphocytes 0.7 thou/uL (1.20-3.40); #Monocytes 0.4 thou/uL (0.11-0.59); #Neutrophils 3.7 thou/uL (1.40-6.50); %Eosinophils 4.8 % (0.0-10.0); %Lymphocytes 14.3 % (21.0-51.0); %Monocytes 7.2 % (0.0-10.0); %Neutrophils 72.8 % (42.0-75.0); Hemoglobin 8.3 g/dL (12.0-16.0); Mean Corpuscular Hemoglobin 32.5 pg (27.0-31.0); Mean Platelet Volume 7.9 fL (7.4-10.4); Platelet Count 261 thou/uL (130-400); RBC Distribution Width 15.1 % (11.5-14.5); Red Blood Cell (RBC) Count 2.55 mill/uL (4.20-5.40); White Blood Cell (WBC) Count 5.1 thou/uL (4.8-10.8)
[2018-10-28] MEDS: Insulin Regular 300 UNITS/3 ML VIAL SC PRN ×2 (06:13→12:14)
[2018-10-28 06:18] LABS: Anion Gap 14 mmol/L (10-20); BUN (Urea Nitrogen) 30 mg/dL (9.8-20.1); Calc. Creatinine Clearance 122 mL/min (70-130); Calcium 8.9 mg/dL (7.8-10.44); Carbon Dioxide 30 mmol/L (23-31); Chloride 106 mmol/L (98-107); Estimated GFR-MDRD 64; Glucose 149 mg/dL (80-115); Potassium 3.8 mmol/L (3.5-5.1); Sodium 146 mmol/L (136-145)
[2018-10-28 07:25] LABS: Actual Bicarbonate (HCO3a) 32.4 mEq/L (22-28); Base Excess (BEa) 6.7 mEq/L (-2.0 to +3.0); Carboxyhemoglobin (COHb) 1.9 gm% (0.0-3.0); Hemoglobin (Hb) 9.1 g/dL (12.0-16.0); O2 Tension (PaO2) 68.8 mmHg (> 80.0); Potassium - ABG Lab 3.47 mmol/L (3.70-5.30)
[2018-10-28 07:30] LABS: Puncture Site RBA
--- NOTE | 2018-10-28 07:54 | RAD ---
SINGLE VIEW CHEST: Date: 10/28/18 COMPARISON: 10/27/18. HISTORY: Ventilated patient with respiratory failure. FINDINGS: Single view of the chest shows normal sized cardiomediastinal silhouette. There is bilateral perihila r fullness, unchanged. The endotracheal tube and NG tube are unchanged in position. There may be smal l bilateral pleural effusions. IMPRESSION: Stable exam. POS: H
[2018-10-28] MEDS ORDERED: DC Sedation Protocol FS ONE (08:09)
--- NOTE | 2018-10-28 08:23 | PRG ---
DATE OF SERVICE: 10/28/2018 SUBJECTIVE: This morning, awake, alert, and responsive on the vent. Appears to be in no distress. OBJECTIVE: VITAL SIGNS: Her Is and Os have been negative consistently. Pulse 100, blood pressure 122/90, sats are 90%, respiratory rate 18. NEUROLOGICAL: Awake, alert, and responsive. CHEST: Minimal crackles without any wheezing. CARDIAC: Normal S1 and S2. No gallops. ABDOMEN: No masses. LABORATORY DATA: PO2 of 68, pCO2 45 PH 7.43_ on a rate of 4. Lytes are normal. Bicarb is 30. White count 5000, H and H are 8 and 25, platelet count is normal. ASSESSMENT: Respiratory failure, congestive heart failure, aortic stenosis, breast cancer status post radiation, morbid obesity, probably sleep apnea. PLAN: We will try to wean and extubate today. Continue supportive care, PT, nutrition. KIN//_ nocturnal CPAP. Outpatient sleep study. This is a one-half hour of critical time. Job ID: [id number] MTDD
[2018-10-28] MEDS ORDERED: Prevnar 13-Val Conj/PF 0.5 ML SYRINGE IM ONE (09:00)
[2018-10-28] MEDS: Enoxaparin Sodium 40 MG/0.4 ML SYRINGE SC SCH (09:59)
[2018-10-28] MEDS: Escitalopram Oxalate 20 mg Tablet PO SCH (10:00)
[2018-10-28] MEDS: Lisinopril 10 MG TAB PO SCH (10:00)
[2018-10-28] MEDS: Cefepime 2 GM in Sodium Chloride 0.9% 100 ML IVPB SCH ×2 (10:00→19:31)
[2018-10-28] MEDS: Spironolactone 25 MG TAB PO SCH (10:00)
[2018-10-28] MEDS: Nitroglycerin 2% Ointment 1 INCH/1 GM Packet TOP SCH ×2 (10:02→19:31)
--- NOTE | 2018-10-28 11:15 | PDOC.HOSPP ---
- Subjective Encounter Date: 10/28/18 Encounter Time: 10:40 Subjective: got extubated this am, is comfortable breathing no palp or chest pain at bedside has some hoarseness due being intubated till now - Objective Vital Signs & Weight: Vital Signs (12 hours) Temp Pulse Resp BP Pulse Ox 10/28/18 10:41 95 13 100 10/28/18 10:00 111/52 L 10/28/18 08:08 107 H 20 92 L 10/28/18 07:33 89 111/52 L 10/28/18 07:32 91 20 99 10/28/18 06:00 19 10/28/18 04:00 99.4 F 20 10/28/18 03:16 95 10/28/18 02:00 10/28/18 00:00 99.2 F 22 H Weight Admit Weight 266 lb 8.622 oz Weight 260 lb 2.327 oz Most Recent Monitor Data Heart Rate from ECG 86 NIBP 120/55 NIBP BP-Mean 76 Respiration from ECG 17 SpO2 97 I&O: 10/27/18 10/28/18 10/29/18 06:59 06:59 06:59 Intake Total 2667 1300 Output Total 296 3035 Balance -298 -9055 Result Diagrams: 10/28/18 03:50 10/28/18 03:50 Additional Labs: Accuchecks 10/27/18 10/27/18 10/27/18 23:51 17:07 13:04 POC Glucose 175 H 151 H 157 H ROS - Medication Medications: Active Medications Generic Name Dose Route Start Last Admin Trade Name Freq PRN Reason Stop Dose Admin Albuterol/Ipratropium 3 ml 10/25/18 11:00 10/28/18 10:41 Duoneb NEB 3 ml [id number] PATTI Administration Enoxaparin Sodium 40 mg 10/25/18 09:00 10/28/18 09:59 Lovenox SC 40 mg 0900 PATTI Administration Escitalopram Oxalate 20 mg 10/25/18 09:00 10/28/18 10:00 Lexapro PO 20 mg QAM PATTI Administration Furosemide 40 mg 10/26/18 14:00 10/28/18 05:09 Lasix SLOW IVP 40 mg 0600,1400 PATTI Administration Cefepime HCl 2 gm/ Sodium 100 mls @ 200 mls/hr 10/25/18 09:00 10/28/18 10:00 Chloride IVPB 100 mls Q12HR PATTI Administration Insulin Human Regular 0 units 10/25/18 12:09 10/28/18 06:13 Humulin R SC 2 units .MODERATE SLIDING SC PRN Administration Moderate Correctional Scale Levothyroxine Sodium 200 mcg 10/26/18 06:00 10/28/18 05:09 Synthroid PO 200 mcg 0600 PATTI Administration Lisinopril 10 mg 10/26/18 09:00 10/28/18 10:00 Zestril PO 10 mg DAILY PATTI Administration Metoprolol Succinate 50 mg 10/25/18 09:00 10/28/18 10:00 Toprol Xl PO 50 mg QAM PATTI Administration Nitroglycerin 1 inch 10/25/18 21:00 10/28/18 10:02 Nitro-Bid 2% Ointment TOP 1 inch BID PATTI Administration Ondansetron HCl 4 mg 10/24/18 19:02 10/27/18 10:21 Zofran IVP 4 mg Q6H PRN Administration Nausea/Vomiting Pantoprazole Sodium 40 mg 10/26/18 21:00 10/27/18 19:29 Protonix IVP 40 mg 2100 PATTI Administration Sodium Chloride 10 ml 10/26/18 03:18 10/27/18 19:29 Flush - Normal Saline IVF 10 ml PRN PRN Administration Saline Flush Sodium Chloride 10 ml 10/26/18 21:00 10/27/18 19:41 Normal Saline Pf FS Not Given 2100 PATTI Spironolactone 25 mg 10/25/18 09:00 10/28/18 10:00 Aldactone PO 25 mg QAM PATTI Administration - Exam NAD, awake alert Eye: PERRL, anicteric sclera ENT: no oropharyngeal lesions, dry oral mucosa Neck: supple, no JVD Heart: RRR, no murmur Respiratory: no wheezes, rhonchi Gastrointestinal: soft, non-tender, normal bowel sounds Extremities: no clubbing, 1+ LE edema Neurological: CN's grossly intact, no focal deficits Psychiatric: normal affect, A&O x 3 Hosp A/P (1) CHF (congestive heart failure) Code(s): I50.9 - HEART FAILURE, UNSPECIFIED Status: Acute Qualifiers: Heart failure type: systolic Heart failure chronicity: acute Qualified Code(s): I50.21 - Acute systolic (congestive) heart failure (2) Acute respiratory failure with hypoxia Code(s): J96.01 - ACUTE RESPIRATORY FAILURE WITH HYPOXIA Status: Resolved (3) Obesity (BMI 30-39.9) Code(s): E66.9 - OBESITY, UNSPECIFIED Status: Chronic (4) Chronic anemia Code(s): D64.9 - ANEMIA, UNSPECIFIED Status: Chronic (5) Hypothyroidism Code(s): E03.9 - HYPOTHYROIDISM, UNSPECIFIED Status: Chronic (6) HTN (hypertension) Code(s): I10 - ESSENTIAL (PRIMARY) HYPERTENSION Status: Chronic Qualifiers: Hypertension type: essential hypertension Qualified Code(s): I10 - Essential (primary) hypertension (7) Breast cancer Status: Chronic Qualifiers: Patient sex: female (8) DM2 (diabetes mellitus, type 2) Status: Chronic Qualifiers: Diabetes mellitus senior care insulin use: without middle or intermediate school principal use (9) CAD (coronary artery disease) Code(s): I25.10 - ATHSCL HEART DISEASE OF [place] CORONARY ARTERY W/O ANG PCTRS Status: Acute Qualifiers: Coronary Disease-Associated Artery/Lesion type: [place] artery [place] vs. transplanted heart: [place] heart Associated angina: without angina Qualified Code(s): I25.10 - Atherosclerotic heart disease of [place] coronary artery without angina pectoris - Plan Got extubated this am, will prefer her to stay in ICU tonight in view of prior reintubation. diuresed well, is on lasix official cardiac cath results pending, per staff had 2 vessel disease, for intervention when she is more stable. echo showed ef of 40%, mod has finished 6 cycles of chemo taxotere and cytoxan, on radiation therapy continue toprol xl, lasix, spironolactone, lisinopril, synthroid, nitropaste cefepime, nebs hemostable
[2018-10-28] MEDS ORDERED: Digoxin 0.5 MG/2 ML AMP SLOW IVP SCH (12:00)
[2018-10-28] MEDS ORDERED: Diltiazem HCl 125 MG, Admixture Fee 1 EACH in Sodium Chloride 0.9% 100 ML IVPB SCH (14:00)
--- NOTE | 2018-10-28 15:32 | PRG ---
DATE OF SERVICE: 10/28/2018 SUBJECTIVE: Ms. Nascimento is currently doing much better today. She has been extubated. She did develop atrial fibrillation with RVR. She was placed on IV Cardizem and given one dose of digoxin. OBJECTIVE: VITAL SIGNS: Current vital signs; blood pressure 108/67, pulse 119, and respirations 20. LUNGS: Clear to auscultation. HEART: Irregularly irregular. ABDOMEN: Soft, nontender, nondistended. EXTREMITIES: 1 to 2+ pitting edema. PERTINENT LABORATORY DATA: Hemoglobin 8.3, down from 9.8 on admission. Creatinine 0.89, sodium 146. IMPRESSION: 1. Acute pulmonary edema. 2. Severe coronary artery disease. 3. Atrial fibrillation, new onset. 4. Breast cancer. RECOMMENDATIONS: At this point, we will add IV Cardizem and digoxin. I do not feel the atrial fibrillation is related to recent episode of acute pulmonary edema. The patient may have ischemic MR from occluded right and severe stenosis to the circumflex artery at the ostium and only option would be surgical revascularization. I feel this is a chronic condition. I do not feel this occurred over the last several days to weeks. We will continue current course. If this recurs, may then consider bypass. Job ID: [id number]
[2018-10-28] MEDS: Pantoprazole 40 MG VIAL IVP SCH (19:31)
[2018-10-28] MEDS: Sodium Chloride 0.9% (PF) 10 ML VIAL FS SCH (19:32)
[2018-10-29] MEDS: Levothyroxine Sodium 100 MCG TAB PO SCH (05:06)
[2018-10-29] MEDS: Furosemide 40 MG/4 ML VIAL SLOW IVP SCH (05:06)
[2018-10-29 06:08] LABS: #Basophils 0.1 thou/uL (0.0-0.2); #Eosinphils 0.2 thou/uL (0.0-0.7); #Monocytes 0.6 thou/uL (0.11-0.59); #Neutrophils 3.7 thou/uL (1.40-6.50); %Basophils 0.9 % (0.0-1.0); %Eosinophils 4.2 % (0.0-10.0); %Lymphocytes 17.8 % (21.0-51.0); %Monocytes 10.7 % (0.0-10.0); %Neutrophils 66.5 % (42.0-75.0); Hemoglobin 8.5 g/dL (12.0-16.0); Mean Corpuscular HGB CONC 32.5 g/dL (32.0-36.0); Mean Corpuscular Hemoglobin 32.5 pg (27.0-31.0); Mean Platelet Volume 7.4 fL (7.4-10.4); Platelet Count 281 thou/uL (130-400); Red Blood Cell (RBC) Count 2.62 mill/uL (4.20-5.40); White Blood Cell (WBC) Count 5.6 thou/uL (4.8-10.8)
[2018-10-29 06:35] LABS: Anion Gap 15 mmol/L (10-20); BUN (Urea Nitrogen) 32 mg/dL (9.8-20.1); Calc. Creatinine Clearance 127 mL/min (70-130); Calcium 9.5 mg/dL (7.8-10.44); Carbon Dioxide 30 mmol/L (23-31); Chloride 104 mmol/L (98-107); Estimated GFR-MDRD 68; Glucose 142 mg/dL (80-115); Potassium 3.7 mmol/L (3.5-5.1); Sodium 145 mmol/L (136-145)
--- NOTE | 2018-10-29 09:33 | PDOC.CTH ---
Cardiology Progress Note - Subjective Doing better. BP low on IV CCB. Pt has converted to SR - Objective Vital Signs Temp Pulse Resp Pulse Ox 10/29/18 08:38 82 20 94 L 10/29/18 04:00 97.8 F 98 10/29/18 01:15 72 22 H 96 10/29/18 00:00 99.2 F Admit Weight 266 lb 8.622 oz Weight 257 lb 15.053 oz 10/28/18 10/29/18 10/30/18 06:59 06:59 06:59 Intake Total 1300 1515.1 Output Total 3035 2170 Balance -1735 -654.9 - Physical Examination General/Neuro: NAD Neck: carotid US brisk, no JVD present Lungs: unlabored respirations Heart: RRR Abdomen: NT/ND, soft Extremities: + edema B - Labs Result Diagrams: 10/29/18 05:39 10/29/18 05:39 Troponin/CKMB Troponin I 0.148 ng/mL (< 0.028) H 10/24/18 21:45 - Assessment/Plan PAF Severe two vessel disease (NOT INVOLVING THE lad, lm) Breast cancer KIN Conceivable that pts symptoms are related to ischemic MR Given intermittent episodes of afib, this may be enough to cause flash pulmonary edema ?surgical candidate. Percutaneous intervention difficult given location of circ lesion and occluded RCA Pt currently stable
--- NOTE | 2018-10-29 09:36 | RAD ---
CHEST 1 VIEW: COMPARISON: 10/28/2018. HISTORY: Respiratory distress. Ventilated patient. FINDINGS: Atherosclerosis of the aortic knob. Enlarged cardiac silhouette. The pulmonary vessels are within n ormal limits. There is a right perihilar interstitial and alveolar opacity, along with a left-sided pleural effusion. IMPRESSION: 1. Right perihilar opacity, worrisome for pneumonia. 2. Small left-sided effusion. 3. Continued surveillance is recommended. POS: FLORESITA
--- NOTE | 2018-10-29 10:07 | PRG ---
DATE OF SERVICE: 10/29/2018 SUBJECTIVE: Yari Nascimento was extubated yesterday, but she still has a lot of difficulty breathing, coughing, and wheezing to my surprise. X-ray still shows right-sided infiltrate. OBJECTIVE: VITAL SIGNS: Her I's and O's have been consistently negative. Saturations are 94% on 3 L, respiratory rate 20, pulse 82, blood pressure 103/57. CHEST: Extensive wheezing. Rhonchi, crackles bilaterally. CARDIAC: Normal S1 and S2. No gallops. ABDOMEN: No masses. LABORATORY DATA: Glucose 142. White count 5000, 26, and platelet count 281. BUN is 32. ASSESSMENT: 1. Congestive heart failure. 2. Morbid obesity. 3. Breast cancer. 4. Respiratory failure, possibly pneumonia, severe bronchospasm. PLAN: Start neb treatments, steroids, diuretics by mouth. Supportive care, PT, nocturnal CPAP. Continue to follow in the ICU. One-half hour of critical time. Job ID: [id number]
[2018-10-29] MEDS: Escitalopram Oxalate 20 mg Tablet PO SCH (10:08)
[2018-10-29] MEDS: Enoxaparin Sodium 40 MG/0.4 ML SYRINGE SC SCH (10:08)
--- NOTE | 2018-10-29 11:00 | PDOC.HOSPP ---
- Subjective Encounter Date: 10/29/18 Encounter Time: 07:50 Subjective: no sob, has not had a bm, wants something for it has mild abd distention no chest pain - Objective Vital Signs & Weight: Vital Signs (12 hours) Temp Pulse Resp Pulse Ox 10/29/18 08:38 82 20 94 L 10/29/18 04:00 97.8 F 98 10/29/18 01:15 72 22 H 96 10/29/18 00:00 99.2 F Weight Admit Weight 266 lb 8.622 oz Weight 257 lb 15.053 oz Most Recent Monitor Data Heart Rate from ECG 72 NIBP 130/57 NIBP BP-Mean 81 Respiration from ECG 21 SpO2 98 I&O: 10/28/18 10/29/18 10/30/18 06:59 06:59 06:59 Intake Total 1300 1515.1 Output Total 3035 2170 Balance -1735 -654.9 Result Diagrams: 10/29/18 05:39 10/29/18 05:39 Additional Labs: Accuchecks 10/28/18 10/28/18 10/28/18 19:01 12:12 06:14 POC Glucose 117 H 177 H 178 H ROS - Medication Medications: Active Medications Generic Name Dose Route Start Last Admin Trade Name Freq PRN Reason Stop Dose Admin Albuterol/Ipratropium 3 ml 10/25/18 11:00 10/29/18 08:38 Duoneb NEB 3 ml [id number] PATTI Administration Enoxaparin Sodium 40 mg 10/25/18 09:00 10/29/18 10:08 Lovenox SC 40 mg 0900 PATTI Administration Escitalopram Oxalate 20 mg 10/25/18 09:00 10/29/18 10:08 Lexapro PO 20 mg QAM PATTI Administration Diltiazem HCl 125 mg/ 125 mls @ 0 mls/hr 10/28/18 14:00 10/28/18 14:25 Miscellaneous Medication 1 IVPB 125 mls each/ Sodium Chloride INF PATTI Administration Protocol As Directed Insulin Human Regular 0 units 10/25/18 12:09 10/28/18 12:14 Humulin R SC 2 units .MODERATE SLIDING SC PRN Administration Moderate Correctional Scale Levothyroxine Sodium 200 mcg 10/26/18 06:00 10/29/18 05:06 Synthroid PO 200 mcg 0600 PATTI Administration Lisinopril 10 mg 10/26/18 09:00 10/28/18 10:00 Zestril PO 10 mg DAILY PATTI Administration Metoprolol Succinate 50 mg 10/25/18 09:00 10/28/18 10:00 Toprol Xl PO 50 mg QAM PATTI Administration Nitroglycerin 1 inch 10/25/18 21:00 10/28/18 19:31 Nitro-Bid 2% Ointment TOP 1 inch BID PATTI Administration Ondansetron HCl 4 mg 10/24/18 19:02 10/27/18 10:21 Zofran IVP 4 mg Q6H PRN Administration Nausea/Vomiting Pantoprazole Sodium 40 mg 10/26/18 21:00 10/28/18 19:31 Protonix IVP 40 mg 2100 PATTI Administration Sodium Chloride 10 ml 10/26/18 03:18 10/27/18 19:29 Flush - Normal Saline IVF 10 ml PRN PRN Administration Saline Flush Sodium Chloride 10 ml 10/26/18 21:00 10/28/18 19:32 Normal Saline Pf FS 10 ml 2100 PATTI Administration - Exam awake alert, ill appearing Eye: PERRL, anicteric sclera ENT: no oropharyngeal lesions, dry oral mucosa Neck: supple, no JVD Heart: RRR, no murmur Respiratory: no wheezes, rales, rhonchi Gastrointestinal: soft, non-tender, normal bowel sounds, distended Extremities: no cyanosis, 1+ LE edema Neurological: CN's grossly intact, no focal deficits Psychiatric: normal affect, A&O x 3 Hosp A/P (1) CHF (congestive heart failure) Code(s): I50.9 - HEART FAILURE, UNSPECIFIED Status: Acute Qualifiers: Heart failure type: systolic Heart failure chronicity: acute Qualified Code(s): I50.21 - Acute systolic (congestive) heart failure (2) Acute respiratory failure with hypoxia Code(s): J96.01 - ACUTE RESPIRATORY FAILURE WITH HYPOXIA Status: Resolved (3) Obesity (BMI 30-39.9) Code(s): E66.9 - OBESITY, UNSPECIFIED Status: Chronic (4) Chronic anemia Code(s): D64.9 - ANEMIA, UNSPECIFIED Status: Chronic (5) Hypothyroidism Code(s): E03.9 - HYPOTHYROIDISM, UNSPECIFIED Status: Chronic Qualifiers: Hypothyroidism type: unspecified Qualified Code(s): E03.9 - Hypothyroidism , unspecified (6) HTN (hypertension) Code(s): I10 - ESSENTIAL (PRIMARY) HYPERTENSION Status: Chronic Qualifiers: Hypertension type: essential hypertension Qualified Code(s): I10 - Essential (primary) hypertension (7) Breast cancer Status: Chronic Qualifiers: Patient sex: female (8) DM2 (diabetes mellitus, type 2) Status: Chronic Qualifiers: Diabetes mellitus residential insulin use: without termination clerk use (9) CAD (coronary artery disease) Code(s): I25.10 - ATHSCL HEART DISEASE OF [place] CORONARY ARTERY W/O ANG PCTRS Status: Acute Qualifiers: Coronary Disease-Associated Artery/Lesion type: [place] artery [place] vs. transplanted heart: [place] heart Associated angina: without angina Qualified Code(s): I25.10 - Atherosclerotic heart disease of [place] coronary artery without angina pectoris - Plan Got extubated 10/28/2018, hemostable diuresed well, is on lasix per has 2 vessel disease, for intervention (cabg) when she is more stable. echo showed ef of 40%, mod has finished 6 cycles of chemo taxotere and cytoxan, on radiation therapy continue toprol xl, lasix, spironolactone, lisinopril, synthroid, nitropaste levaquin, nebs, steroids Oral solid diet oob to chair as tolerated fleets enema x1, dulcolax pr prn.
[2018-10-29] MEDS: methylPREDNISolone Sod Succ 40 MG VIAL IVP SCH ×2 (12:24→17:41)
[2018-10-29] MEDS: Insulin Regular 300 UNITS/3 ML VIAL SC PRN ×2 (12:27→17:37)
[2018-10-29] MEDS ORDERED: Sodium Chloride 0.9% 250 ML 250 ML IVPB SCH (12:30)
--- NOTE | 2018-10-29 15:00 | EKG ---
Test Reason : CARDIAC ARREST Blood Pressure : / mmHG Vent. Rate : 124 BPM Atrial Rate : 124 BPM P-R Int : 118 ms QRS Dur : 100 ms QT Int : 356 ms P-R-T Axes : 032 -49 076 degrees QTc Int : 511 ms Sinus tachycardia Left axis deviation Confirmed by MONSTER HOUSTON ([id number]), video tape editor REEMA THURMAN ([id number]) on 10/29/2018 2:59:24 PM Referred By: Confirmed By:MONSTER HOUSTON
[2018-10-29] MEDS: Lisinopril 10 MG TAB PO SCH (15:15)
[2018-10-29] MEDS: Nitroglycerin 2% Ointment 1 INCH/1 GM Packet TOP SCH ×2 (15:16→19:48)
[2018-10-29] MEDS: Furosemide 40 MG TAB PO SCH (15:17)
[2018-10-29] MEDS: Spironolactone 25 MG TAB PO SCH (18:54)
[2018-10-29] MEDS: Budesonide 0.5 MG/2 ML NEB INH SCH (18:54)
[2018-10-29] MEDS: Cefepime 2 GM in Sodium Chloride 0.9% 100 ML IVPB SCH (18:54)
[2018-10-29] MEDS: Docusate 100 MG CAP PO SCH (19:48)
[2018-10-29] MEDS: Sodium Chloride 0.9% (PF) 10 ML VIAL FS SCH (19:49)
[2018-10-29] MEDS: Pantoprazole 40 MG VIAL IVP SCH (19:49)
[2018-10-29] MEDS: Ondansetron PF 4 MG/2 ML Vial IVP PRN (21:00)
[2018-10-29] MEDS ORDERED: Lorazepam 2 MG/ML VIAL SLOW IVP SCH (22:00)
[2018-10-29] MEDS ORDERED: Furosemide 40 MG/4 ML VIAL ONE (23:16)
[2018-10-30] MEDS ORDERED: Nitroglycerin 0.4 MG TAB (25 Tab Bottle) SL SCH (00:15)
[2018-10-30] MEDS ORDERED: Furosemide 40 MG/4 ML VIAL SLOW IVP SCH ×2 (00:15→12:00)
[2018-10-30] MEDS: methylPREDNISolone Sod Succ 40 MG VIAL IVP SCH ×4 (00:26→20:41)
[2018-10-30] MEDS: Levothyroxine Sodium 100 MCG TAB PO SCH (05:47)
[2018-10-30 06:21] LABS: #Lymphocytes 0.3 thou/uL (1.20-3.40); #Monocytes 0.2 thou/uL (0.11-0.59); %Eosinophils 0.3 % (0.0-10.0); %Lymphocytes 6.8 % (21.0-51.0); %Monocytes 3.4 % (0.0-10.0); %Neutrophils 89.4 % (42.0-75.0); Mean Corpuscular HGB CONC 32.9 g/dL (32.0-36.0); Mean Corpuscular Hemoglobin 32.3 pg (27.0-31.0); Mean Corpuscular Volume 98.2 fL (78.0-98.0); Mean Platelet Volume 7.7 fL (7.4-10.4); Platelet Count 299 thou/uL (130-400); Red Blood Cell (RBC) Count 2.78 mill/uL (4.20-5.40); White Blood Cell (WBC) Count 4.5 thou/uL (4.8-10.8)
[2018-10-30 06:35] LABS: Anion Gap 15 mmol/L (10-20); BUN (Urea Nitrogen) 34 mg/dL (9.8-20.1); Calc. Creatinine Clearance 121 mL/min (70-130); Calcium 9.3 mg/dL (7.8-10.44); Carbon Dioxide 29 mmol/L (23-31); Chloride 100 mmol/L (98-107); Estimated GFR-MDRD 63; Glucose 187 mg/dL (80-115); Potassium 3.8 mmol/L (3.5-5.1); Sodium 140 mmol/L (136-145)
[2018-10-30] MEDS: Insulin Regular 300 UNITS/3 ML VIAL SC PRN ×2 (06:42→17:12)
[2018-10-30] MEDS: Budesonide 0.5 MG/2 ML NEB INH SCH ×2 (07:38→18:31)
[2018-10-30] MEDS: Docusate 100 MG CAP PO SCH ×2 (08:29→20:41)
[2018-10-30] MEDS: Furosemide 40 MG TAB PO SCH ×2 (08:29→15:18)
[2018-10-30] MEDS: Escitalopram Oxalate 20 mg Tablet PO SCH (08:29)
[2018-10-30] MEDS: Lisinopril 10 MG TAB PO SCH (08:29)
[2018-10-30] MEDS: Spironolactone 25 MG TAB PO SCH (08:30)
[2018-10-30] MEDS: Enoxaparin Sodium 40 MG/0.4 ML SYRINGE SC SCH (08:30)
[2018-10-30] MEDS: Nitroglycerin 2% Ointment 1 INCH/1 GM Packet TOP SCH ×2 (08:32→20:41)
--- NOTE | 2018-10-30 09:18 | RAD ---
FRONTAL VIEW CHEST: COMPARISON: Previous day. INDICATION: Ventilated patient, followup. FINDINGS: There is persistent patchy alveolar opacities throughout the right lung. Pleural-based density and a djacent parenchymal density at the left lower lung zone is present. There is bilateral vascular david estion. Cardiac silhouette is prominent. IMPRESSION: Persistent bilateral pulmonary parenchymal opacities as well as pleural-based density, right greater than left. Recommend continued followup. POS: GIULIANO
--- NOTE | 2018-10-30 09:50 | PRG ---
DATE OF SERVICE: 10/30/2018 SUBJECTIVE: This morning, she is better. Last night, she had difficulty breathing, coughing, and rattling in the chest. Her BNP is still markedly elevated over 1000. She sat in the chair most of the time yesterday. I's and O's, consistently negative. OBJECTIVE: VITAL SIGNS: Blood pressure 161/86, pulse 73, respirations 22, saturations on 96% on 4 L. CHEST: Bilateral crackles. Wheezing, much improved. CARDIAC: Normal S1, S2. No gallops. ABDOMEN: No masses. ASSESSMENT: Congestive heart failure, morbid obesity, sleep apnea, breast cancer, radiation. PLAN: P.o. antibiotics, p.o. Lasix. PT, supportive care. Continue observation in the ICU for another the 24 hours. Thereafter, can be sent to a monitored bed. I am still concerned a lot of her problems are cardiac in origin. One-half hour of critical care time. Job ID: [id number]
--- NOTE | 2018-10-30 10:00 | PDOC.CTH ---
Cardiology Progress Note - Subjective Another episode of SOB noted yesterday. Occurred acutely. Required bipap. - Objective Vital Signs Temp Pulse Resp BP Pulse Ox 10/30/18 08:29 161/86 H 10/30/18 07:38 87 22 H 96 10/30/18 07:34 96 10/30/18 07:31 87 22 H 96 10/30/18 07:00 98.0 F 10/30/18 04:00 97.7 F 10/30/18 03:48 89 20 100 10/30/18 00:00 97.6 F 98 10/29/18 23:40 109 H 28 H 100 Admit Weight 266 lb 8.622 oz Weight 263 lb 3.711 oz 10/29/18 10/30/18 10/31/18 06:59 06:59 06:59 Intake Total 1515.1 1066.4 120 Output Total 2170 2095 135 Balance -654.9 -1028.6 -15 - Physical Examination General/Neuro: alert & oriented x3, NAD Neck: no JVD present Lungs: unlabored respirations Heart: PMI normal, RRR Abdomen: NT/ND, soft Extremities: + femoral B - Labs Result Diagrams: 10/30/18 05:50 10/30/18 05:50 Troponin/CKMB Troponin I 0.148 ng/mL (< 0.028) H 10/24/18 21:45 - Assessment/Plan PAF Severe two vessel disease (NOT INVOLVING THE lad, lm) Breast cancer KIN Discussed with Dr. Gill Concern for ischemic MR Lasix IV 40mg now Crackles noted bilaterally On PO lasix increase BB Conceivable that pts symptoms are related to ischemic MR Given intermittent episodes of afib, this may be enough to cause flash pulmonary edema ?surgical candidate. Percutaneous intervention difficult given location of circ lesion and occluded RCA Pt currently stable
--- NOTE | 2018-10-30 13:02 | PDOC.HOSPP ---
- Subjective Encounter Date: 10/30/18 Encounter Time: 11:30 Subjective: sitting in chair, ate her breakfast says she was sob last evening, but better now no palp or chest pain now - Objective Vital Signs & Weight: Vital Signs (12 hours) Temp Pulse Resp BP Pulse Ox 10/30/18 08:29 161/86 H 10/30/18 07:38 87 22 H 96 10/30/18 07:34 96 10/30/18 07:31 87 22 H 96 10/30/18 07:00 98.0 F 10/30/18 04:00 97.7 F 10/30/18 03:48 89 20 100 Weight Admit Weight 266 lb 8.622 oz Weight 263 lb 3.711 oz Most Recent Monitor Data Heart Rate from ECG 96 NIBP 146/66 NIBP BP-Mean 92 Respiration from ECG 24 SpO2 96 I&O: 10/29/18 10/30/18 10/31/18 06:59 06:59 06:59 Intake Total 1515.1 1066.4 240 Output Total 2170 2095 215 Balance -654.9 -1028.6 25 Result Diagrams: 10/30/18 05:50 10/30/18 05:50 Additional Labs: Accuchecks 10/29/18 17:32 POC Glucose 176 H ROS - Medication Medications: Active Medications Generic Name Dose Route Start Last Admin Trade Name Freq PRN Reason Stop Dose Admin Albuterol/Ipratropium 3 ml 10/25/18 11:00 10/30/18 11:10 Duoneb NEB Not Given [id number] PATTI Budesonide 0.5 mg 10/29/18 18:30 10/30/18 07:38 Pulmicort Neb Solution INH 0.5 mg BID-RT PATTI Administration Docusate Sodium 100 mg 10/29/18 21:00 10/30/18 08:29 Colace PO 100 mg BID PATTI Administration Enoxaparin Sodium 40 mg 10/25/18 09:00 10/30/18 08:30 Lovenox SC 40 mg 0900 PATTI Administration Escitalopram Oxalate 20 mg 10/25/18 09:00 10/30/18 08:29 Lexapro PO 20 mg QAM PATTI Administration Furosemide 40 mg 10/29/18 14:00 10/30/18 08:29 Lasix PO 40 mg 0900,1400 PATTI Administration Insulin Human Regular 0 units 10/25/18 12:09 10/30/18 06:42 Humulin R SC 2 units .MODERATE SLIDING SC PRN Administration Moderate Correctional Scale Levofloxacin 500 mg 10/30/18 06:00 10/30/18 05:47 Levaquin PO 11/04/18 06:01 500 mg 0600 PATTI Administration Levothyroxine Sodium 200 mcg 10/26/18 06:00 10/30/18 05:47 Synthroid PO 200 mcg 0600 PATTI Administration Lisinopril 10 mg 10/26/18 09:00 10/30/18 08:29 Zestril PO 10 mg DAILY PATTI Administration Methylprednisolone Sodium Succinate 40 mg 10/30/18 09:00 10/30/18 09:55 Solu-Medrol IVP 40 mg BID PATTI Administration Nitroglycerin 1 inch 10/25/18 21:00 10/30/18 08:32 Nitro-Bid 2% Ointment TOP 1 inch BID PATTI Administration Ondansetron HCl 4 mg 10/24/18 19:02 10/29/18 21:00 Zofran IVP 4 mg Q6H PRN Administration Nausea/Vomiting Pantoprazole Sodium 40 mg 10/30/18 09:00 10/30/18 08:29 Protonix PO 40 mg DAILY PATTI Administration Sodium Chloride 10 ml 10/26/18 03:18 10/27/18 19:29 Flush - Normal Saline IVF 10 ml PRN PRN Administration Saline Flush Sodium Chloride 10 ml 10/26/18 21:00 10/29/18 19:49 Normal Saline Pf FS 10 ml 2100 PATTI Administration Spironolactone 50 mg 10/29/18 09:02 10/30/18 08:30 Aldactone PO 50 mg QAM PATTI Administration - Exam NAD, awake alert Eye: PERRL, anicteric sclera ENT: no oropharyngeal lesions, moist mucosa Neck: supple, no JVD Heart: RRR, no murmur Respiratory: no wheezes, no ronchi, rales Gastrointestinal: soft, non-tender, non-distended, normal bowel sounds Extremities: no cyanosis, 1+ LE edema Neurological: CN's grossly intact, no focal deficits Psychiatric: normal affect, A&O x 3 Hosp A/P (1) CHF (congestive heart failure) Code(s): I50.9 - HEART FAILURE, UNSPECIFIED Status: Acute Qualifiers: Heart failure type: systolic Heart failure chronicity: acute Qualified Code(s): I50.21 - Acute systolic (congestive) heart failure (2) Acute respiratory failure with hypoxia Code(s): J96.01 - ACUTE RESPIRATORY FAILURE WITH HYPOXIA Status: Resolved (3) Obesity (BMI 30-39.9) Code(s): E66.9 - OBESITY, UNSPECIFIED Status: Chronic (4) Chronic anemia Code(s): D64.9 - ANEMIA, UNSPECIFIED Status: Chronic (5) Hypothyroidism Code(s): E03.9 - HYPOTHYROIDISM, UNSPECIFIED Status: Chronic Qualifiers: Hypothyroidism type: unspecified Qualified Code(s): E03.9 - Hypothyroidism , unspecified (6) HTN (hypertension) Code(s): I10 - ESSENTIAL (PRIMARY) HYPERTENSION Status: Chronic Qualifiers: Hypertension type: essential hypertension Qualified Code(s): I10 - Essential (primary) hypertension (7) Breast cancer Status: Chronic Qualifiers: Patient sex: female (8) DM2 (diabetes mellitus, type 2) Status: Chronic Qualifiers: Diabetes mellitus rodent exterminator insulin use: without correction use (9) CAD (coronary artery disease) Code(s): I25.10 - ATHSCL HEART DISEASE OF [place] CORONARY ARTERY W/O ANG PCTRS Status: Acute Qualifiers: Coronary Disease-Associated Artery/Lesion type: [place] artery [place] vs. transplanted heart: [place] heart Associated angina: without angina Qualified Code(s): I25.10 - Atherosclerotic heart disease of [place] coronary artery without angina pectoris - Plan Got extubated 10/28/2018, hemostable is on lasix bid, spironolactone toprol xl, lisinopril, synthroid, nitropaste has severe 2 vessel disease, for intervention (cabg) when she is more stable. echo showed ef of 40%, mod has finished 6 cycles of chemo taxotere and cytoxan, on radiation therapy levaquin, nebs, steroids Oral solid diet oob to chair/amb as tolerated had large BM yesterday
[2018-10-30] MEDS ORDERED: Lorazepam 2 MG/ML VIAL SLOW IVP SCH (20:45)
[2018-10-30] MEDS: Sodium Chloride 0.9% (PF) 10 ML VIAL FS SCH (21:32)
[2018-10-31 06:44] LABS: #Lymphocytes 0.5 thou/uL (1.20-3.40); #Monocytes 0.5 thou/uL (0.11-0.59); #Neutrophils 4.8 thou/uL (1.40-6.50); %Eosinophils 0.2 % (0.0-10.0); %Lymphocytes 8.2 % (21.0-51.0); %Neutrophils 83.7 % (42.0-75.0); Hemoglobin 8.9 g/dL (12.0-16.0); Mean Corpuscular HGB CONC 32.9 g/dL (32.0-36.0); Mean Corpuscular Hemoglobin 32.2 pg (27.0-31.0); Mean Platelet Volume 7.5 fL (7.4-10.4); Platelet Count 344 thou/uL (130-400); RBC Distribution Width 15.1 % (11.5-14.5); Red Blood Cell (RBC) Count 2.76 mill/uL (4.20-5.40); White Blood Cell (WBC) Count 5.8 thou/uL (4.8-10.8)
[2018-10-31] MEDS: Levothyroxine Sodium 100 MCG TAB PO SCH (06:44)
[2018-10-31] MEDS: Insulin Regular 300 UNITS/3 ML VIAL SC PRN ×3 (06:44→21:05)
[2018-10-31] MEDS: Budesonide 0.5 MG/2 ML NEB INH SCH ×2 (06:54→18:14)
[2018-10-31 07:08] LABS: ALT (SGPT) 12 U/L (8-55); AST (SGOT) 15 U/L (5-34); Albumin 3.6 g/dL (3.4-4.8); Alkaline Phosphatase 37 U/L (40-150); Anion Gap 16 mmol/L (10-20); BUN (Urea Nitrogen) 38 mg/dL (9.8-20.1); Bilirubin, Total 0.4 mg/dL (0.2-1.2); Calc. Creatinine Clearance 116 mL/min (70-130); Calcium 9.7 mg/dL (7.8-10.44); Carbon Dioxide 31 mmol/L (23-31); Chloride 98 mmol/L (98-107); Estimated GFR-MDRD 60; Globulin 2.7 g/dL (2.4-3.5); Glucose 179 mg/dL (80-115); Potassium 3.7 mmol/L (3.5-5.1); Protein, Total 6.3 g/dL (6.0-8.3); Sodium 141 mmol/L (136-145)
[2018-10-31] MEDS ORDERED: Communication Order-Pharmacy FS ONE (07:33)
[2018-10-31 08:36] LABS: Hemoglobin A1c 5.4 % (4.0-6.0)
--- NOTE | 2018-10-31 08:42 | PRG ---
DATE OF SERVICE: 10/31/2018 SUBJECTIVE: This morning, she is awake, alert, and responsive. She is doing better. Less cough. Less shortness of breath. Less pain. OBJECTIVE: VITAL SIGNS: Saturations are 94% on room air, pulse 90, blood pressure 138/80, respiratory rate 18. I's and O's have been consistently negative. CHEST: Minimal crackles. No wheezing. CARDIAC: Normal S1 and S2. No gallops. ABDOMEN: No masses. LABORATORY DATA: White count 5000, H and H of 9 and 29, and platelet count is normal. IMPRESSION: 1. Breast cancer. 2. Congestive heart failure. 3. Chronic obstructive pulmonary disease. 4. Sleep apnea. PLAN: Surgery was consulted for bypass, which she will undergo tomorrow. Pulmonary will follow, postop BiPAP. Continue PT, supportive care. We will follow. Job ID: [id number]
[2018-10-31] MEDS: Enoxaparin Sodium 40 MG/0.4 ML SYRINGE SC SCH (08:58)
[2018-10-31] MEDS: Spironolactone 25 MG TAB PO SCH (08:59)
[2018-10-31] MEDS: Furosemide 40 MG TAB PO SCH ×2 (09:00→18:25)
[2018-10-31] MEDS: Lisinopril 10 MG TAB PO SCH (09:01)
[2018-10-31] MEDS: Isosorbide Mononitrate 20 MG TAB PO SCH ×2 (09:08→20:10)
[2018-10-31] MEDS: Escitalopram Oxalate 20 mg Tablet PO SCH (09:09)
[2018-10-31] MEDS: Docusate 100 MG CAP PO SCH ×2 (09:09→19:50)
--- NOTE | 2018-10-31 09:30 | PRG ---
DATE OF SERVICE: 10/31/2018 SUBJECTIVE: Ms. Nascimento is doing well. She had a good night. No current complaints. OBJECTIVE: GENERAL: Patient is a pleasant female who is in no acute distress. The patient appears their stated age. VITAL SIGNS: Blood pressure 158/65, pulse 75, respirations 20. NEUROLOGIC: The patient is alert and oriented x3 with no focal neurologic deficits. HEENT: Sclerae without icterus. Mouth has moist mucous membranes with normal pallor. NECK: No JVD. Carotid upstroke brisk. No bruits bilaterally. LUNGS: Clear to auscultation with unlabored respirations. BACK: No scoliosis or kyphosis. CARDIAC: Regular rate and rhythm with normal S1 and S2. No S3 or S4 noted. No significant rubs, murmurs, thrills, or gallops noted throughout the precordium. PMI is not displaced. There is no parasternal heave. ABDOMEN: Soft, nontender, nondistended. No peritoneal signs present. No hepatosplenomegaly. No abnormal striae. EXTREMITIES: 2+ femoral and 2+ dorsalis pedis pulses. No cyanosis, clubbing, or edema. SKIN: No gross abnormalities. PERTINENT LABORATORY DATA: Hemoglobin 8.9, creatinine 0.95. IMPRESSION: 1. Recurrent flash pulmonary edema. 2. Previous tobacco abuse. 3. Diabetes mellitus. 4. Obstructive sleep apnea. 5. Breast cancer. RECOMMENDATIONS: I consulted with CV Surgery. Discussed case with Dr. Joe Gill. Certainly seems reasonable to proceed with bypass surgery of the right coronary artery, circumflex artery, and intermediate ramus branch. Working diagnosis at this point is ischemic MR. The patient is agreeable to proceed. Otherwise, from my standpoint, I have no further recommendations. Plan is to proceed with surgery tomorrow. Job ID: [id number]
--- NOTE | 2018-10-31 10:33 | PDOC.HOSPP ---
- Subjective Encounter Date: 10/31/18 Encounter Time: 07:15 Subjective: is sitting in chair, no sob, feels better had bm yesterday tolerating oral diet (eating 50-60%) - Objective Vital Signs & Weight: Vital Signs (12 hours) Temp Pulse Resp BP Pulse Ox 10/31/18 10:19 74 17 10/31/18 09:01 140/67 10/31/18 06:54 75 28 H 10/31/18 04:00 97.9 F 10/31/18 02:09 72 19 98 10/31/18 00:00 98.7 F Weight Admit Weight 266 lb 8.622 oz Weight 263 lb 3.711 oz Most Recent Monitor Data Heart Rate from ECG 72 NIBP 158/65 NIBP BP-Mean 96 Respiration from ECG 19 SpO2 100 I&O: 10/30/18 10/31/18 11/01/18 06:59 06:59 06:59 Intake Total 1066.4 985 Output Total 5057 2055 Balance -1028.6 -1070 Result Diagrams: 10/31/18 06:34 10/31/18 06:34 Additional Labs: Accuchecks 10/31/18 10/30/18 10/30/18 06:37 20:55 17:12 POC Glucose 201 H 179 H 158 H ROS - Medication Medications: Active Medications Generic Name Dose Route Start Last Admin Trade Name Freq PRN Reason Stop Dose Admin Albuterol/Ipratropium 3 ml 10/25/18 11:00 10/31/18 10:19 Duoneb NEB 3 ml [id number] PATTI Administration Budesonide 0.5 mg 10/29/18 18:30 10/31/18 06:54 Pulmicort Neb Solution INH 0.5 mg BID-RT PATTI Administration Docusate Sodium 100 mg 10/29/18 21:00 10/31/18 09:09 Colace PO Not Given BID PATTI Enoxaparin Sodium 40 mg 10/25/18 09:00 10/31/18 08:58 Lovenox SC 40 mg 0900 PATTI Administration Escitalopram Oxalate 20 mg 10/25/18 09:00 10/31/18 09:09 Lexapro PO 20 mg QAM PATTI Administration Furosemide 40 mg 10/29/18 14:00 10/31/18 09:00 Lasix PO 40 mg 0900,1400 PATTI Administration Insulin Human Regular 0 units 10/25/18 12:09 10/31/18 06:44 Humulin R SC 4 units .MODERATE SLIDING SC PRN Administration Moderate Correctional Scale Isosorbide Mononitrate 20 mg 10/31/18 09:00 10/31/18 09:08 Ismo PO 20 mg BID PATTI Administration Levofloxacin 500 mg 10/30/18 06:00 10/31/18 06:44 Levaquin PO 11/04/18 06:01 500 mg 0600 PATTI Administration Levothyroxine Sodium 200 mcg 10/26/18 06:00 10/31/18 06:44 Synthroid PO 200 mcg 0600 PATTI Administration Lisinopril 10 mg 10/26/18 09:00 10/31/18 09:01 Zestril PO 10 mg DAILY PATTI Administration Metoprolol Succinate 50 mg 10/30/18 21:00 10/31/18 09:00 Toprol Xl PO 50 mg BID PATTI Administration Ondansetron HCl 4 mg 10/24/18 19:02 10/29/18 21:00 Zofran IVP 4 mg Q6H PRN Administration Nausea/Vomiting Pantoprazole Sodium 40 mg 10/30/18 09:00 10/31/18 09:09 Protonix PO 40 mg DAILY PATTI Administration Sodium Chloride 10 ml 10/26/18 03:18 10/30/18 20:41 Flush - Normal Saline IVF 10 ml PRN PRN Administration Saline Flush Sodium Chloride 10 ml 10/26/18 21:00 10/30/18 21:32 Normal Saline Pf FS 10 ml 2100 PATTI Administration Spironolactone 50 mg 10/29/18 09:02 10/31/18 08:59 Aldactone PO 50 mg QAM PATTI Administration - Exam awake alert, ill appearing Eye: PERRL, anicteric sclera ENT: no oropharyngeal lesions, moist mucosa Neck: supple, no JVD Heart: RRR, no murmur Respiratory: no wheezes, rales Gastrointestinal: soft, non-tender, normal bowel sounds Extremities: no cyanosis, 1+ LE edema Neurological: CN's grossly intact, no focal deficits Psychiatric: normal affect, A&O x 3 Hosp A/P (1) CHF (congestive heart failure) Code(s): I50.9 - HEART FAILURE, UNSPECIFIED Status: Acute Qualifiers: Heart failure type: systolic Heart failure chronicity: acute Qualified Code(s): I50.21 - Acute systolic (congestive) heart failure (2) Acute respiratory failure with hypoxia Code(s): J96.01 - ACUTE RESPIRATORY FAILURE WITH HYPOXIA Status: Resolved (3) Obesity (BMI 30-39.9) Code(s): E66.9 - OBESITY, UNSPECIFIED Status: Chronic (4) Chronic anemia Code(s): D64.9 - ANEMIA, UNSPECIFIED Status: Chronic (5) Hypothyroidism Code(s): E03.9 - HYPOTHYROIDISM, UNSPECIFIED Status: Chronic Qualifiers: Hypothyroidism type: unspecified Qualified Code(s): E03.9 - Hypothyroidism , unspecified (6) HTN (hypertension) Code(s): I10 - ESSENTIAL (PRIMARY) HYPERTENSION Status: Chronic Qualifiers: Hypertension type: essential hypertension Qualified Code(s): I10 - Essential (primary) hypertension (7) Breast cancer Status: Chronic Qualifiers: Patient sex: female (8) DM2 (diabetes mellitus, type 2) Status: Chronic Qualifiers: Diabetes mellitus longterm insulin use: without terminal clerk use (9) CAD (coronary artery disease) Code(s): I25.10 - ATHSCL HEART DISEASE OF [place] CORONARY ARTERY W/O ANG PCTRS Status: Acute Qualifiers: Coronary Disease-Associated Artery/Lesion type: [place] artery [place] vs. transplanted heart: [place] heart Associated angina: without angina Qualified Code(s): I25.10 - Atherosclerotic heart disease of [place] coronary artery without angina pectoris - Plan Got extubated 10/28/2018, hemostable is on lasix bid, spironolactone toprol xl, lisinopril, synthroid, nitropaste has severe 2 vessel disease, for cabg in am. echo showed ef of 40%, mod has finished 6 cycles of chemo taxotere and cytoxan, on radiation therapy levaquin, nebs, steroids Oral solid diet oob to chair/amb as tolerated i.spirometry
--- NOTE | 2018-10-31 11:56 | CON ---
DATE OF CONSULTATION: HISTORY OF PRESENT ILLNESS: This is a 62-year-old female, who presented about a week ago after collapsing at an [employer] receiving a short duration of CPR before vital signs returned. She was intubated at the scene and subsequently has been extubated with recurrent respiratory distress picture. Cardiac echo showed moderate aortic valve stenosis, minimal mitral valve regurgitation, EF 40% to 45%. Cardiac catheterization showed an occluded right coronary artery that filled from left-sided collaterals with a fairly normal-appearing left main and LAD. She did have a complex lesion at the origin of a circ and takeoff the large ramus. I have been asked to see her for coronary artery bypass grafting for what is suspected to be ischemic mitral regurgitation. PAST MEDICAL HISTORY: Significant past medical history includes hypertension, diabetes mellitus, longstanding smoking history of a half pack of cigarettes a day until 3 years ago. She was also diagnosed as having breast cancer in March of this year undergoing a q.3-week chemotherapy until about 1 week ago at which time she was begun on daily radiation therapy treatments, having received first 5 days of treatment prior to her arrest. SOCIAL HISTORY: She is to her , not currently at the bedside. 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 MEDICATIONS: At home are multiple includes, 1. Fenofibrate 200 at bedtime. 2. Levothyroxine 225 mcg daily. 3. Metoprolol XL dose unknown. 4. Prilosec 20 b.i.d. 5. Spironolactone 25 b.i.d. 6. Metformin 1000 b.i.d. 7. Crestor 20 daily. 8. Benicar 40 daily. PHYSICAL EXAMINATION: VITAL SIGNS: Height recorded as 5 feet 10 inches, weight 270 pounds. NECK: No carotid bruits. LUNGS: Clear to auscultation anteriorly. CARDIAC: Distant heart sounds. No murmurs are appreciated. ABDOMEN: Obese. EXTREMITIES: She has no peripheral edema at this time, and I cannot appreciate any pedal pulses. IMAGING STUDIES: I have reviewed multiple studies including chest CT scan showing no significant ascending aortic stenosis. She does have some calcification in her aortic valve as well as in her main right coronary artery and less so in her proximal circumflex system. She has significant calcification at the common iliac arteries bilaterally. Chest x-ray shows increased pulmonary vascular markings bilaterally compared with a fairly normal-appearing chest x-ray in March of this year. LABORATORY STUDIES: She has baseline anemia which is new over the past several months, and her creatinine is normal. Her hemoglobin A1c is not available and has been ordered. PLAN: At this time is for coronary artery bypass grafting to the distal right system, the obtuse marginal in the ramus. Aortic valve is not severe enough to justify intervention at this time and mitral valve structurally appears normal. I have discussed the procedure, risks, complications, and expectations with the patient and planned for a multivessel coronary artery bypass grafting. Job ID: [id number]
[2018-10-31] MEDS: Sodium Chloride 0.9% (PF) 10 ML VIAL FS SCH (19:52)
[2018-11-01] MEDS: Isosorbide Mononitrate 20 MG TAB PO SCH (05:11)
[2018-11-01] MEDS: Lisinopril 10 MG TAB PO SCH (05:11)
[2018-11-01] MEDS: Levothyroxine Sodium 100 MCG TAB PO SCH (05:11)
[2018-11-01] MEDS ORDERED: Albumin 5% 500 ML ONE (06:32)
[2018-11-01] MEDS: Budesonide 0.5 MG/2 ML NEB INH SCH (06:38)
[2018-11-01] MEDS ORDERED: Heparin 10,000 UNITS/1 ML VIAL 30,000 UNITS in Sodium Chloride 0.9% 1,000 ML FS SCH (06:45)
[2018-11-01] MEDS ORDERED: Midazolam HCl 5 mg/5 ml Vial ONE (06:49)
[2018-11-01] MEDS ORDERED: Norepinephrine 4 MG/4 ML VIAL ONE (06:49)
[2018-11-01] MEDS ORDERED: Dexmedetomidine 200 MCG/2 ML VIAL ONE (06:49)
[2018-11-01] MEDS ORDERED: Fentanyl 250 MCG/5 ML VIAL ONE (06:49)
[2018-11-01] MEDS ORDERED: Vecuronium 10 MG VIAL ONE ×2 (06:49→11:14)
--- NOTE | 2018-11-01 07:52 | RAD ---
Chest one view portable: HISTORY: Respiratory insufficiency COMPARISON: 10/30/2018 FINDINGS: Cardiomegaly with bilateral vascular congestion with some scattered interstitial and alveolar parench ymal changes particularly in the right chest showing minimal improvement. Small stable pleural effusions. IMPRESSION: Solitary improving findings of congestive heart failure.
[2018-11-01] MEDS ORDERED: Insulin Regular 300 UNITS/3 ML VIAL ONE (08:13)
[2018-11-01] MEDS: Docusate 100 MG CAP PO SCH (09:18)
[2018-11-01] MEDS: Enoxaparin Sodium 40 MG/0.4 ML SYRINGE SC SCH (09:18)
[2018-11-01] MEDS: Escitalopram Oxalate 20 mg Tablet PO SCH (09:18)
[2018-11-01] MEDS: Furosemide 40 MG TAB PO SCH (09:18)
[2018-11-01] MEDS: Spironolactone 25 MG TAB PO SCH (09:19)
[2018-11-01] MEDS ORDERED: Thrombin 5000 UNITS/5 ML VIAL ONE (11:14)
[2018-11-01] MEDS ORDERED: Calcium Chloride 1 GM/10 ML Abboject SYRINGE ONE (11:14)
[2018-11-01] MEDS ORDERED: Sodium Bicarb 50 MEQ/50 ML VIAL ONE (11:14)
[2018-11-01] MEDS ORDERED: Cardioplegic Soln 1,000 ML BAG ONE (11:14)
[2018-11-01] MEDS ORDERED: PROPOFOL 200 MG/20 ML VIAL ONE (11:14)
[2018-11-01] MEDS ORDERED: Potassium Chloride 60 MEQ/30 ML VIAL ONE (11:14)
[2018-11-01] MEDS ORDERED: Lidocaine 2% PF 100 mg/5 ml Syringe ONE (11:14)
[2018-11-01] MEDS ORDERED: Aminocaproic Acid 5 GM/20 ML VIAL ONE (11:14)
[2018-11-01] MEDS ORDERED: Heparin 30,000 units/30 ml VIAL ONE (11:14)
[2018-11-01] MEDS ORDERED: Magnesium 5 GM/10 ML VIAL ONE (11:14)
[2018-11-01] MEDS ORDERED: Mannitol 12.5 GM/50 ML ONE (11:14)
[2018-11-01] MEDS ORDERED: Protamine Sulfate 250 MG/25 ML VIAL ONE (11:14)
[2018-11-01] MEDS ORDERED: Heparin 5,000 UNITS/ML VIAL ONE (11:14)
[2018-11-01] MEDS ORDERED: Papaverine 60 MG/2 ML VIAL ONE (11:14)
[2018-11-01] MEDS ORDERED: Norepinephrine 8 MG/0.9% NS 250 ML IVPB PRN (12:12)
[2018-11-01] MEDS ORDERED: Bisacodyl 5 MG TAB PO PRN (12:12)
[2018-11-01] MEDS ORDERED: Guaifenesin DM 100-10/5 ML UDCUP PO PRN (12:12)
[2018-11-01] MEDS ORDERED: Post-Op Insulin Drip Protocol IVPB ONE (12:12)
[2018-11-01] MEDS ORDERED: hydrALAZINE 20 MG/ML VIAL SLOW IVP PRN (12:12)
[2018-11-01] MEDS ORDERED: niCARdipine 25 MG in Sodium Chloride 0.9% 250 ML 240 ML IVPB PRN (12:12)
[2018-11-01] MEDS ORDERED: Mag-Al 1200 mg/1200 mg/30 ML UDCUP PO PRN (12:12)
[2018-11-01] MEDS ORDERED: Ondansetron PF 4 MG/2 ML Vial IVP PRN (12:12)
[2018-11-01] MEDS ORDERED: Acetaminophen 325 MG TAB PO PRN (12:12)
[2018-11-01] MEDS ORDERED: DOPamine 400 MG/D5W 250 ML 250 ML IVPB PRN (12:12)
[2018-11-01] MEDS ORDERED: Fentanyl 100 MCG/2 ML VIAL SLOW IVP PRN (12:12)
[2018-11-01] MEDS ORDERED: Hetastarch 6% 500 ML 500 ML IVPB PRN (12:12)
[2018-11-01] MEDS ORDERED: Bisacodyl 10 MG SUPP PR PRN (12:12)
[2018-11-01] MEDS ORDERED: Nitroglycerin 50 MG/250 ML BOT 250 ML IVPB PRN (12:12)
[2018-11-01] MEDS ORDERED: Dextrose 50% Abboject 50 ML SYRINGE SLOW IVP PRN (12:25)
[2018-11-01] MEDS ORDERED: Dextrose 5% in Water 1,000 ML IV PRN (12:25)
[2018-11-01] MEDS ORDERED: HUMULIN R 100 UNITS in Sodium Chloride 0.9% 100 ML IVPB SCH (12:25)
[2018-11-01] MEDS ORDERED: Magnesium 2 GM/50 ML 2 GM in Premix Bag 1 BAG IVPB SCH (12:30)
[2018-11-01 12:37] LABS: Hemoglobin 10.4 g/dL (12.0-16.0); Mean Corpuscular HGB CONC 33.9 g/dL (32.0-36.0); Mean Corpuscular Volume 94.4 fL (78.0-98.0); Platelet Count 308 thou/uL (130-400); RBC Distribution Width 15.3 % (11.5-14.5); Red Blood Cell (RBC) Count 3.25 mill/uL (4.20-5.40); White Blood Cell (WBC) Count 15.2 thou/uL (4.8-10.8)
--- NOTE | 2018-11-01 12:37 | RAD ---
Chest one view HISTORY: Heart surgery. COMPARISON: 11/01/2018. Earlier exam on the same date. FINDINGS: Cardiac silhouette is magnified and enlarged. Partially obscured by atelectasis at the left base. Pulmonary vasculature slightly engorged. Mediastinum midline with postoperative changes and radiopaque drain. Left thoracostomy tube is in goo d radiographic position. Tip of an endotracheal catheter overlies the thoracic inlet. Tip of a left subclavian central venous catheter overlies the superior vena cava. IMPRESSION: Interval postoperative changes mediastinum, with lines and tubes in good radiographic pos ition.
[2018-11-01 12:45] LABS: INR-International Normal Ratio 1.2; PTT 28.6 SEC (22.9-36.1); Prothrombin Time 15.2 SEC (12.0-14.7)
[2018-11-01] MEDS: Lactated Ringer's 1,000 ML IV SCH ×2 (12:51→22:08)
[2018-11-01] MEDS: Morphine 2 MG/ML SYRINGE SLOW IVP PRN ×2 (12:52→13:54)
[2018-11-01 13:03] LABS: Actual Bicarbonate (HCO3a) 29.4 mEq/L (22-28); Base Excess (BEa) 3.4 mEq/L (-2.0 to +3.0); Calcium, Ionized 1.13 mmol/L (1.12-1.30); Carboxyhemoglobin (COHb) 0.6 gm% (0.0-3.0); Hemoglobin (Hb) 11.1 g/dL (12.0-16.0); O2 Tension (PaO2) 94.7 mmHg (> 80.0); Potassium - ABG Lab 3.56 mmol/L (3.70-5.30); pH, Arterial 7.38 (7.35-7.45)
[2018-11-01 13:04] LABS: Puncture Site LINE
--- NOTE | 2018-11-01 13:08 | PRG ---
DATE OF SERVICE: 11/01/2018 SUBJECTIVE: She is status post CABG, intubated on the vent, sedated. Pretty much unresponsive. She is also on Levophed. OBJECTIVE: VITAL SIGNS: Pulse is 92, blood pressure is 126/62, sats 96%, respirations about 18. CHEST: Minimal crackles. No wheezing. CARDIAC: Normal S1 and S2. No gallops. ABDOMEN: Soft. EXTREMITIES: 2+ ankle edema. DIAGNOSTIC STUDIES: Chest x-ray still shows pulmonary edema, though it appears to be somewhat better. Status post coronary artery bypass grafting, status post recurrent respiratory failure secondary to congestive heart failure, morbid obesity, probably sleep apnea, breast cancer, undergoing radiation. Lab appears to be otherwise unremarkable. H and H are stable. Platelet count is normal. Chemistry profile not being ordered, one of it is going to be ordered. IMPRESSION: Status post coronary artery bypass grafting, congestive heart failure, probable sleep apnea, and breast cancer. PLAN: Wean per protocol. Continue present treatment, neb treatments, supportive care. We will follow. One-half hour of critical time. Job ID: [id number]
[2018-11-01 13:10] LABS: Band 32 % (5-11); Lymphocytes 4 % (21-51); MDiff Complete? YES; Monocytes 8 % (0-10); Neutrophil 56 % (42-75); Platelet Morphology Comment Appears Adequate; Polychromasia SLIGHT = 2-3 cells (100X) (0-2/hpf)
[2018-11-01 13:22] LABS: Anion Gap 15 mmol/L (10-20); BUN (Urea Nitrogen) 30 mg/dL (9.8-20.1); Calc. Creatinine Clearance 129 mL/min (70-130); Calcium 8.5 mg/dL (7.8-10.44); Carbon Dioxide 27 mmol/L (23-31); Chloride 104 mmol/L (98-107); Estimated GFR-MDRD 69; Glucose 100 mg/dL (80-115); Potassium 4.1 mmol/L (3.5-5.1); Sodium 142 mmol/L (136-145)
[2018-11-01] MEDS: Fentanyl 100 MCG/2 ML VIAL SLOW IVP PRN ×3 (16:18→22:38)
[2018-11-01] MEDS: Ketorolac Tromethamine 30 MG/ML VIAL IVP SCH ×2 (16:57→22:38)
[2018-11-01] MEDS ORDERED: diphenhydrAMINE 12.5 MG in Sodium Chloride 0.9% 50 ML IVPB SCH (17:15)
[2018-11-01] MEDS: HYDROcodone/Acetaminophen 5/325 mg Tablet PO PRN (18:27)
[2018-11-01 18:35] LABS: Hemoglobin 10.3 g/dL (12.0-16.0)
[2018-11-01 18:49] LABS: Potassium 3.4 mmol/L (3.5-5.1)
[2018-11-01] MEDS: Potassium Chloride 20 MEQ/100 ML PREMIX BAG IVPB PRN (20:01)
[2018-11-01] MEDS: Vancomycin HCl 1 GM in Premix Bag 1 BAG IVPB SCH (20:02)
[2018-11-01] MEDS ORDERED: Famotidine/PF 20 mg/2ml Vial SLOW IVP SCH (21:00)
--- NOTE | 2018-11-01 22:28 | PDOC.HOSPP ---
- Subjective Subjective: Doing ok post CABG. Still has some discomfort. No other specific complaints. - Objective Vital Signs & Weight: Vital Signs (12 hours) Temp Pulse Resp BP Pulse Ox 11/01/18 20:00 97.8 F 99 11/01/18 18:19 71 16 99 11/01/18 16:00 98 11/01/18 15:00 22 H 11/01/18 14:59 67 112/44 L 11/01/18 14:55 88 18 97 11/01/18 13:28 59 L 18 96 11/01/18 12:26 57 L 86/40 L 11/01/18 12:16 97.8 F 16 97 Weight Admit Weight 266 lb 8.622 oz Weight 259 lb 0.69 oz Most Recent Monitor Data Heart Rate from ECG 66 NIBP 96/44 NIBP BP-Mean 61 Respiration from ECG 20 SpO2 98 I&O: 10/31/18 11/01/18 11/02/18 06:59 06:59 06:59 Intake Total 985 545 711.3 Output Total 5 1395 660 Balance -1070 -1450 51.3 Result Diagrams: 11/01/18 18:31 11/01/18 18:31 Additional Labs: Accuchecks 11/01/18 11/01/18 11/01/18 22:07 21:03 20:03 POC Glucose 128 H 138 H 126 H 11/01/18 11/01/18 11/01/18 19:17 18:12 17:11 POC Glucose 121 H 133 H 135 H 11/01/18 11/01/18 11/01/18 16:19 14:58 14:01 POC Glucose 115 H 154 H 160 H 11/01/18 11/01/18 11/01/18 13:04 12:26 12:04 POC Glucose 101 112 H 104 11/01/18 11/01/18 11/01/18 11:20 10:45 10:18 POC Glucose 137 H 157 H 167 H 11/01/18 11/01/18 11/01/18 09:40 08:09 06:02 POC Glucose 180 H 152 H 147 H Hospitalist ROS - Medication Medications: Active Medications Generic Name Dose Route Start Last Admin Trade Name Freq PRN Reason Stop Dose Admin Hydrocodone Bitart/Acetaminophen 2 tab 11/01/18 12:12 11/01/18 18:27 [place] 5/325 PO 2 tab Q4H PRN Administration Severe Pain (7-10) Albuterol/Ipratropium 3 ml 11/01/18 13:00 11/01/18 18:19 Duoneb NEB 3 ml [id number] PATTI Administration Famotidine 20 mg 11/01/18 21:00 11/01/18 20:01 Pepcid SLOW IVP 20 mg Q12HR PATTI Administration Fentanyl 50 mcg 11/01/18 12:12 11/01/18 20:18 Sublimaze SLOW IVP 11/03/18 12:07 50 mcg Q2H PRN Administration Severe Pain (7-10) Lactated Ringer's 1,000 mls @ 75 mls/hr 11/01/18 12:15 11/01/18 22:08 Lactated Ringer's IV 1,000 mls .[id number] PATTI Administration Vancomycin HCl 1 gm/ Device 200 mls @ 200 mls/hr 11/01/18 21:00 11/01/18 20: 02 IVPB 11/02/18 09:59 200 mls Q12HR PATTI Administration Ketorolac Tromethamine 15 mg 11/01/18 18:00 11/01/18 16:57 Toradol IVP 11/04/18 18:01 15 mg Q6HR PATTI Administration Levofloxacin 500 mg 10/30/18 06:00 11/01/18 05:11 Levaquin PO 11/04/18 06:01 500 mg 0600 PATTI Administration Morphine Sulfate 2 mg 11/01/18 12:12 11/01/18 13:54 Morphine SLOW IVP 2 mg Q15MIN PRN Administration Severe Pain (7-10) Potassium Chloride 20 meq 11/01/18 12:12 11/01/18 20:01 Kcl IVPB 20 meq PRN PRN Administration K level </= 4.0 - Exam General Appearance: NAD, awake alert General - other findings: Extubated. Mask oxygen. Heart: RRR, no murmur, no gallops, no rubs, normal peripheral pulses Heart - other findings: Drains in chest. Respiratory: CTAB, no wheezes, no rales, no ronchi, normal chest expansion, no tachypnea, normal percussion Gastrointestinal: soft, non-tender, non-distended, normal bowel sounds, no palpable masses, no hepatomegaly, no splenomegaly, no bruit Skin: normal turgor, no lesions, no rashes Neurological: CN's grossly intact Musculoskeletal: generalized weakness Psychiatric: normal affect, normal behavior, A&O x 3 Hosp A/P (1) S/P CABG (coronary artery bypass graft) Code(s): Z95.1 - PRESENCE OF AORTOCORONARY BYPASS GRAFT Status: Acute (2) CAD (coronary artery disease) Code(s): I25.10 - ATHSCL HEART DISEASE OF [place] CORONARY ARTERY W/O ANG PCTRS Status: Acute Qualifiers: Coronary Disease-Associated Artery/Lesion type: [place] artery [place] vs. transplanted heart: [place] heart Associated angina: without angina Qualified Code(s): I25.10 - Atherosclerotic heart disease of [place] coronary artery without angina pectoris (3) CHF (congestive heart failure) Code(s): I50.9 - HEART FAILURE, UNSPECIFIED Status: Acute Qualifiers: Heart failure type: systolic Heart failure chronicity: acute Qualified Code(s): I50.21 - Acute systolic (congestive) heart failure (4) Breast cancer Status: Chronic Qualifiers: Patient sex: female (5) DM2 (diabetes mellitus, type 2) Status: Chronic Qualifiers: Diabetes mellitus termite inspector insulin use: without termite inspector use (6) HTN (hypertension) Code(s): I10 - ESSENTIAL (PRIMARY) HYPERTENSION Status: Chronic Qualifiers: Hypertension type: essential hypertension Qualified Code(s): I10 - Essential (primary) hypertension (7) Hypothyroidism Code(s): E03.9 - HYPOTHYROIDISM, UNSPECIFIED Status: Chronic Qualifiers: Hypothyroidism type: unspecified Qualified Code(s): E03.9 - Hypothyroidism , unspecified (8) Obesity (BMI 30-39.9) Code(s): E66.9 - OBESITY, UNSPECIFIED Status: Chronic (9) Acute respiratory failure with hypoxia Code(s): J96.01 - ACUTE RESPIRATORY FAILURE WITH HYPOXIA Status: Resolved - Plan Doing well. Post-op plan per [facility]. Pulm, [facility] following. No change in management.
[2018-11-02] MEDS: Fentanyl 100 MCG/2 ML VIAL SLOW IVP PRN ×5 (02:55→19:41)
[2018-11-02] MEDS: Ketorolac Tromethamine 30 MG/ML VIAL IVP SCH (05:19)
[2018-11-02 05:20] LABS: Anion Gap 13 mmol/L (10-20); BUN (Urea Nitrogen) 35 mg/dL (9.8-20.1); Calc. Creatinine Clearance 113 mL/min (70-130); Calcium 8.3 mg/dL (7.8-10.44); Carbon Dioxide 28 mmol/L (23-31); Chloride 103 mmol/L (98-107); Estimated GFR-MDRD 59; Glucose 114 mg/dL (80-115); Potassium 3.5 mmol/L (3.5-5.1); Sodium 140 mmol/L (136-145)
[2018-11-02 05:32] LABS: #Eosinphils 0.1 thou/uL (0.0-0.7); #Lymphocytes 0.6 thou/uL (1.20-3.40); #Monocytes 0.4 thou/uL (0.11-0.59); #Neutrophils 4.7 thou/uL (1.40-6.50); %Eosinophils 1.5 % (0.0-10.0); %Lymphocytes 10.2 % (21.0-51.0); %Monocytes 7.1 % (0.0-10.0); %Neutrophils 81.2 % (42.0-75.0); Hemoglobin 9.6 g/dL (12.0-16.0); Mean Corpuscular HGB CONC 32.5 g/dL (32.0-36.0); Mean Corpuscular Hemoglobin 31.5 pg (27.0-31.0); Mean Corpuscular Volume 96.9 fL (78.0-98.0); Mean Platelet Volume 8.4 fL (7.4-10.4); Platelet Count 287 thou/uL (130-400); RBC Distribution Width 15.5 % (11.5-14.5); Red Blood Cell (RBC) Count 3.05 mill/uL (4.20-5.40); White Blood Cell (WBC) Count 5.7 thou/uL (4.8-10.8)
[2018-11-02] MEDS: Potassium Chloride 20 MEQ/100 ML PREMIX BAG IVPB PRN (06:24)
--- NOTE | 2018-11-02 06:33 | RAD ---
CHEST ONE VIEW: INDICATIONS: Status post open heart surgery. COMPARISON: 11/01/2018 FINDINGS: The patient has been intervally extubated. Left subclavian central venous catheter persists. Perihi lar interstitial prominence with pulmonary vascular congestion and cardiomegaly persist. Left-sided thoracostomy tube is unchanged. Bilateral pleural effusions are similar appearing. No pneumothorax is evident. IMPRESSION: Interval extubation. Otherwise stable examination. POS: BH
[2018-11-02] MEDS ORDERED: Levothyroxine 175 MCG TAB PO SCH (07:15)
[2018-11-02] MEDS ORDERED: Insulin Glargine 6 UNITS in Pre-Filled Syringe 1 EACH SC SCH (08:00)
[2018-11-02] MEDS: Vancomycin HCl 1 GM in Premix Bag 1 BAG IVPB SCH (08:01)
[2018-11-02] MEDS: Furosemide 40 MG TAB PO SCH ×2 (08:01→14:29)
[2018-11-02] MEDS: Polyethylene Glycol 3350 17 GM Packet PO SCH (08:05)
[2018-11-02] MEDS: HYDROcodone/Acetaminophen 5/325 mg Tablet PO PRN ×4 (08:12→22:25)
[2018-11-02] MEDS ORDERED: Aspirin 325 MG TAB PO SCH (09:00)
--- NOTE | 2018-11-02 09:17 | OP ---
DATE OF PROCEDURE: 11/01/2018 PREOPERATIVE DIAGNOSES: Coronary artery disease, morbid obesity, chronic obstructive pulmonary disease, diabetes mellitus. PROCEDURE PERFORMED: Coronary artery bypass graft x3, left internal mammary artery to a 1.5 mm ramus as it became extra-myocardial, saphenous vein graft somewhat small areas in the vein to a 1.5 mm diseased right coronary artery, and saphenous vein somewhat varicosed to a 1.5 mm intramyocardial OM with calcified plaque just proximal to the arteriotomy. FINDINGS: Moderate left ventricular hypertrophy. WARE CLEANER: Dr. Vincent. TRANSFUSION: 2 units of red cells. DESCRIPTION OF PROCEDURE: After adequate anesthesia had been obtained, the patient was prepped and draped. Venous ultrasound had been performed on the left leg and plan was for endovascular harvest. However, due to some difficulties, Dr. Vincent decided to do an open harvest. He initially did not feel the vein was adequate for 3 grafts, and for this reason, I performed a sternotomy and harvested the left internal mammary artery, which was good quality. After heparinization, the mammary was divided distally and passed medial to the long. The left lobe of the thymus gland was removed to allow access into the mediastinum. Due to her morbid obesity, space was quite limited. Aorta and right atrium were cannulated and cardiopulmonary bypass was begun. The vessels were inspected and the patient had moderate left ventricular hypertrophy. After aortic cross-clamping, a liter of cold blood cardioplegia was given through the aortic root. Following which, the 3 distal anastomoses were completed. The cross-clamp was removed. The patient had a partial occluding clamp placed and two proximal anastomoses were performed on the aortic root and marked with rings. The grafts were all good length. She was weaned from cardiopulmonary bypass on moderate doses of Levophed. Cannulas removed. Protamine given systemically and the aortic cannulation site secured with an additional Prolene suture. Mediastinal and left pleural drains were placed after aspirating about 200 mL of left pleural effusion. The sternum was reapproximated with #7 interrupted wire using some vancomycin paste on the top of the sternum as well as platelet rich blood and platelet poor plasma. Subcutaneous tissue and skin were closed in multiple layers. The patient is to be taken to the ICU in guarded condition. Job ID: [id number]
--- NOTE | 2018-11-02 09:19 | PRG ---
DATE OF SERVICE: 11/02/2018 SUBJECTIVE: Yari Nascimento was extubated yesterday post CABG. She is doing fine, having significant pain in shoulder and chest. No shortness of breath. OBJECTIVE: VITAL SIGNS: Saturations 99% on 4 L, pulse 79, respiratory rate 19, blood pressure 120/46. CHEST: Minimal crackles. No wheezing. CARDIAC: Normal S1 and S2. No gallops. ABDOMEN: No masses. LABORATORY DATA: X-ray, cardiomegaly and pleural effusion. White count 5000, H and H 9 and 29, and platelet count 287. Lytes are normal. ASSESSMENT: Coronary artery bypass grafting, congestive heart failure, morbid obesity, sleep apnea, breast cancer, and pain. PLAN: hydrocodone for pain, which I will continue. PT and supportive care. We will follow. Job ID: [id number] MTDD
[2018-11-02 09:31] LABS: Actual Bicarbonate (HCO3a) 28.8 mEq/L (22-28); Base Excess (BEa) 4.6 mEq/L (-2.0 to +3.0); CO2 Tension 41.4 mmHg (35.0-45.0); Calcium, Ionized 1.15 mmol/L (1.12-1.30); Hemoglobin (Hb) 9.2 g/dL (12.0-16.0); O2 Tension (PaO2) 111.8 mmHg (> 80.0); Potassium - ABG Lab 2.86 mmol/L (3.70-5.30); Puncture Site ALINE; pH, Arterial 7.46 (7.35-7.45)
[2018-11-02 09:37] LABS: Actual Bicarbonate (HCO3a) 27.1 mEq/L (22-28); Analyzer IN Cardio OR; Base Excess (BEa) 3.4 mEq/L (-2.0 to +3.0); CO2 Tension 37.6 mmHg (35.0-45.0); Calcium, Ionized 1.09 mmol/L (1.12-1.30); Carboxyhemoglobin (COHb) 0.8 gm% (0.0-3.0); O2 Tension (PaO2) 119.4 mmHg (> 80.0); Potassium - ABG Lab 2.94 mmol/L (3.70-5.30); pH, Arterial 7.48 (7.35-7.45)
[2018-11-02 09:38] LABS: Analyzer IN Cardio OR; Base Excess (BEa) 7.3 mEq/L (-2.0 to +3.0); CO2 Tension 40.2 mmHg (35.0-45.0); Calcium, Ionized 1.03 mmol/L (1.12-1.30); Carboxyhemoglobin (COHb) 0.7 gm% (0.0-3.0); Hemoglobin (Hb) 7.9 g/dL (12.0-16.0); Potassium - ABG Lab 3.52 mmol/L (3.70-5.30); pH, Arterial 7.51 (7.35-7.45)
[2018-11-02 09:38] LABS: Actual Bicarbonate (HCO3a) 36.6 mEq/L (22-28); Analyzer IN Cardio OR; Base Excess (BEa) 10.5 mEq/L (-2.0 to +3.0); Calcium, Ionized 1.01 mmol/L (1.12-1.30); Carboxyhemoglobin (COHb) 0.6 gm% (0.0-3.0); Hemoglobin (Hb) 7.8 g/dL (12.0-16.0); O2 Tension (PaO2) 425.8 mmHg (> 80.0); Potassium - ABG Lab 3.23 mmol/L (3.70-5.30)
[2018-11-02 09:39] LABS: Actual Bicarbonate (HCO3a) 29.2 mEq/L (22-28); Analyzer IN Cardio OR; Base Excess (BEa) 5.6 mEq/L (-2.0 to +3.0); CO2 Tension 38.9 mmHg (35.0-45.0); Carboxyhemoglobin (COHb) 0.5 gm% (0.0-3.0); Hemoglobin (Hb) 8.1 g/dL (12.0-16.0); O2 Tension (PaO2) 125.8 mmHg (> 80.0); Potassium - ABG Lab 2.74 mmol/L (3.70-5.30); pH, Arterial 7.49 (7.35-7.45)
[2018-11-02 09:39] LABS: Actual Bicarbonate (HCO3v) 32 mEq/L (22-28); Analyzer IN Cardio OR; Base Excess 6.8 mEq/L (-2.0 to +3.0); Calcium, Ionized 1.06 mmol/L (1.16-1.32); Chloride (ABG LAB) 101 mmol/L (98-106); Hemoglobin (Hb) 8.1 g/dL (11.7-16.0); Potassium - ABG Lab 3.51 mmol/L (3.70-5.30); Sodium 138.8 mmol/L (133-146); pH (venous) 7.43 (7.32-7.43)
[2018-11-02 09:40] LABS: Puncture Site ALINE
[2018-11-02 09:40] LABS: Actual Bicarbonate (HCO3a) 28.9 mEq/L (22-28); Analyzer IN Cardio OR; CO2 Tension 40.3 mmHg (35.0-45.0); Calcium, Ionized 1.05 mmol/L (1.12-1.30); Carboxyhemoglobin (COHb) 0.2 gm% (0.0-3.0); Hemoglobin (Hb) 10.2 g/dL (12.0-16.0); O2 Tension (PaO2) 188.4 mmHg (> 80.0); Potassium - ABG Lab 3.03 mmol/L (3.70-5.30); pH, Arterial 7.47 (7.35-7.45)
[2018-11-02 09:41] LABS: CO2 Tension 60.7 mmHg (35.0-45.0); Puncture Site ALINE
[2018-11-02 09:42] LABS: Puncture Site ALINE
[2018-11-02 09:43] LABS: Puncture Site ALINE
[2018-11-02 09:43] LABS: Puncture Site ALINE
[2018-11-02] MEDS: Insulin Regular 300 UNITS/3 ML VIAL SC PRN ×3 (11:56→21:30)
[2018-11-02] MEDS: Lactated Ringer's 1,000 ML IV SCH (14:29)
--- NOTE | 2018-11-02 18:17 | PDOC.HOSPP ---
- Subjective Encounter Date: 11/02/18 Encounter Time: 10:40 Subjective: Pt seen for followup re: CAD. Says she feels okay. c/o chest soreness. No fevers. - Objective Vital Signs & Weight: Vital Signs (12 hours) Temp Pulse Pulse Pulse Resp BP BP 11/02/18 16:00 97.7 F 11/02/18 13:14 80 22 H 11/02/18 12:00 98.1 F 11/02/18 11:21 82 66 117/47 L 107/46 L 11/02/18 08:00 11/02/18 07:00 98.2 F 11/02/18 06:57 11/02/18 06:55 75 19 Pulse Ox Pulse Ox Pulse Ox 11/02/18 16:00 11/02/18 13:14 99 11/02/18 12:00 11/02/18 11:21 98 97 11/02/18 08:00 97 11/02/18 07:00 11/02/18 06:57 99 11/02/18 06:55 99 Weight Admit Weight 266 lb 8.622 oz Weight 262 lb 5.601 oz Most Recent Monitor Data Heart Rate from ECG 78 NIBP 145/68 NIBP BP-Mean 93 Respiration from ECG 13 SpO2 100 I&O: 11/01/18 11/02/18 11/03/18 06:59 06:59 06:59 Intake Total 545 2085.5 1460 Output Total 1995 1080 785 Balance -1450 1005.5 675 Result Diagrams: 11/02/18 04:12 11/02/18 04:12 Additional Labs: Accuchecks 11/02/18 11/02/18 11/02/18 16:18 11:35 08:21 POC Glucose 122 H 162 H 113 H 11/02/18 11/02/18 11/02/18 06:18 04:10 03:02 POC Glucose 130 H 120 H 119 H 11/02/18 11/02/18 11/02/18 02:06 01:07 00:09 POC Glucose 118 H 106 113 H 11/01/18 11/01/18 11/01/18 23:04 22:07 21:03 POC Glucose 124 H 128 H 138 H 11/01/18 11/01/18 11/01/18 20:03 19:17 18:12 POC Glucose 126 H 121 H 133 H 11/01/18 11/01/18 11/01/18 17:11 16:19 14:58 POC Glucose 135 H 115 H 154 H 11/01/18 11/01/18 14:01 13:04 POC Glucose 160 H 101 labs and MARs reviewed by wa Hospitalist ROS - Review of Systems Cardiovascular: reports: chest pain. denies: palpitations, orthopnea, paroxysmal noc. dyspnea, edema, light headedness Gastrointestinal: denies: nausea, vomitting, abdominal pain, diarrhea, constipation, melena, hematochezia - Medication Medications: Active Medications Generic Name Dose Route Start Last Admin Trade Name Freq PRN Reason Stop Dose Admin Hydrocodone Bitart/Acetaminophen 2 tab 11/01/18 12:12 11/02/18 11:55 [place] 5/325 PO 2 tab Q4H PRN Administration Severe Pain (7-10) Albuterol/Ipratropium 3 ml 11/01/18 13:00 11/02/18 13:14 Duoneb NEB 3 ml [id number] PATTI Administration Aspirin 325 mg 11/02/18 09:00 11/02/18 08:01 Aspirin PO 325 mg DAILY PATTI Administration Fentanyl 50 mcg 11/01/18 12:12 11/02/18 15:09 Sublimaze SLOW IVP 11/03/18 12:07 50 mcg Q2H PRN Administration Severe Pain (7-10) Furosemide 40 mg 11/02/18 09:00 11/02/18 14:29 Lasix PO 40 mg 0900,1400 PATTI Administration Lactated Ringer's 1,000 mls @ 75 mls/hr 11/01/18 12:15 11/02/18 14:29 Lactated Ringer's IV 1,000 mls .[id number] PATTI Administration Insulin Human Regular 0 units 11/01/18 12:25 11/02/18 11:56 Humulin R SC 4 unit Q4H PRN Administration POST OP SLIDING SCALE Protocol Levofloxacin 500 mg 10/30/18 06:00 11/02/18 05:20 Levaquin PO 11/04/18 06:01 500 mg 0600 PATTI Administration Polyethylene Glycol 17 gm 11/02/18 09:00 11/02/18 08:05 Miralax PO Not Given DAILY PATTI Potassium Chloride 20 meq 11/01/18 12:12 11/02/18 06:24 Kcl IVPB 20 meq PRN PRN Administration K level </= 4.0 - Exam General - other findings: Obese Eye: anicteric sclera ENT: moist mucosa Neck: supple Heart: RRR Respiratory: CTAB Gastrointestinal: soft, normal bowel sounds Neurological: no weakness Psychiatric: normal affect, normal behavior Hosp A/P (1) CAD (coronary artery disease) Code(s): I25.10 - ATHSCL HEART DISEASE OF [place] CORONARY ARTERY W/O ANG PCTRS Status: Acute Qualifiers: Coronary Disease-Associated Artery/Lesion type: [place] artery [place] vs. transplanted heart: [place] heart Associated angina: without angina Qualified Code(s): I25.10 - Atherosclerotic heart disease of [place] coronary artery without angina pectoris (2) S/P CABG (coronary artery bypass graft) Code(s): Z95.1 - PRESENCE OF AORTOCORONARY BYPASS GRAFT Status: Acute (3) CHF (congestive heart failure) Code(s): I50.9 - HEART FAILURE, UNSPECIFIED Status: Acute Qualifiers: Heart failure type: systolic Heart failure chronicity: acute Qualified Code(s): I50.21 - Acute systolic (congestive) heart failure (4) Pulmonary infiltrates Code(s): R91.8 - OTHER NONSPECIFIC ABNORMAL FINDING OF LUNG FIELD Status: Acute (5) DM2 (diabetes mellitus, type 2) Status: Chronic Qualifiers: Diabetes mellitus termite technician insulin use: without termite technician use (6) Breast cancer Status: Chronic Qualifiers: Patient sex: female (7) HTN (hypertension) Code(s): I10 - ESSENTIAL (PRIMARY) HYPERTENSION Status: Chronic Qualifiers: Hypertension type: essential hypertension Qualified Code(s): I10 - Essential (primary) hypertension (8) Hypothyroidism Code(s): E03.9 - HYPOTHYROIDISM, UNSPECIFIED Status: Chronic Qualifiers: Hypothyroidism type: unspecified Qualified Code(s): E03.9 - Hypothyroidism , unspecified (9) Obesity (BMI 30-39.9) Code(s): E66.9 - OBESITY, UNSPECIFIED Status: Chronic (10) Acute respiratory failure with hypoxia Code(s): J96.01 - ACUTE RESPIRATORY FAILURE WITH HYPOXIA Status: Resolved - Plan PT/OT, out of bed/ambulate s/p CABG. Continue synthroid. BP controlled. Discharge planning per CV surgery.
[2018-11-02] MEDS: Atorvastatin Calcium 40 MG TAB PO SCH (20:47)
--- NOTE | 2018-11-02 22:34 | PRG ---
DATE OF SERVICE: 11/02/2018 SUBJECTIVE: Ms. Nascimento is currently doing well. No current complaints. She underwent bypass surgery. She has been extubated. She feels sore mainly in her back. OBJECTIVE: VITAL SIGNS: Blood pressure 145/68, pulse 78. Temperature, afebrile. LUNGS: Clear to auscultation. HEART: Regular rate and rhythm. ABDOMEN: Soft, nontender, nondistended. EXTREMITIES: No edema. IMPRESSION: 1. Coronary artery disease. 2. Status post bypass surgery. 3. Breast cancer. 4. Obstructive sleep apnea. RECOMMENDATIONS: 1. Add low-dose beta-becka therapy in addition to statin therapy. 2. Incentive spirometry. 3. Physical therapy. Job ID: [id number]
[2018-11-03 01:17] LABS: #Eosinphils 0.1 thou/uL (0.0-0.7); #Lymphocytes 0.7 thou/uL (1.20-3.40); #Monocytes 0.5 thou/uL (0.11-0.59); #Neutrophils 7.2 thou/uL (1.40-6.50); %Basophils 0.2 % (0.0-1.0); %Eosinophils 1.5 % (0.0-10.0); %Lymphocytes 7.6 % (21.0-51.0); %Monocytes 5.5 % (0.0-10.0); %Neutrophils 85.2 % (42.0-75.0); Hemoglobin 9.7 g/dL (12.0-16.0); Mean Corpuscular HGB CONC 33.1 g/dL (32.0-36.0); Mean Corpuscular Hemoglobin 32.3 pg (27.0-31.0); Mean Corpuscular Volume 97.4 fL (78.0-98.0); Mean Platelet Volume 7.5 fL (7.4-10.4); Platelet Count 332 thou/uL (130-400); RBC Distribution Width 15.1 % (11.5-14.5); White Blood Cell (WBC) Count 8.5 thou/uL (4.8-10.8)
[2018-11-03 01:50] LABS: Anion Gap 15 mmol/L (10-20); BUN (Urea Nitrogen) 32 mg/dL (9.8-20.1); Calc. Creatinine Clearance 112 mL/min (70-130); Calcium 8.7 mg/dL (7.8-10.44); Carbon Dioxide 28 mmol/L (23-31); Chloride 102 mmol/L (98-107); Estimated GFR-MDRD 58; Glucose 159 mg/dL (80-115); Potassium 3.3 mmol/L (3.5-5.1); Sodium 142 mmol/L (136-145)
[2018-11-03] MEDS: Potassium Chloride 20 MEQ/100 ML PREMIX BAG IVPB PRN (02:07)
[2018-11-03] MEDS: Insulin Regular 300 UNITS/3 ML VIAL SC PRN (02:08)
[2018-11-03] MEDS: Lactated Ringer's 1,000 ML IV SCH (02:16)
[2018-11-03] MEDS: HYDROcodone/Acetaminophen 5/325 mg Tablet PO PRN ×5 (05:51→22:49)
[2018-11-03] MEDS ORDERED: Levothyroxine 175 MCG TAB PO SCH (06:00)
--- NOTE | 2018-11-03 07:31 | RAD ---
Frontal radiograph chest: 11/03/2018 COMPARISON: 11/02/2018 HISTORY: Status post open heart surgery FINDINGS: Stable right vascular catheter and midline sternotomy wires. Postsurgical drain overlies th e mediastinum/left lung base. There is bibasilar pleural and parenchymal opacity, left greater than right, with stable obscuration of the bilateral heart borders and hemidiaphragms. IMPRESSION: Stable appearance of the chest as detailed above.
[2018-11-03] MEDS ORDERED: Milk Of Magnesia 30 ML UDCUP PO PRN (07:34)
[2018-11-03] MEDS ORDERED: Bisacodyl 10 MG SUPP PR PRN (07:34)
[2018-11-03] MEDS ORDERED: Mag-Al 1200 mg/1200 mg/30 ML UDCUP PO PRN (07:34)
[2018-11-03] MEDS ORDERED: Mineral Oil ENEMA PR PRN (07:34)
[2018-11-03] MEDS ORDERED: Nitroglycerin 0.4 MG TAB (25 Tab Bottle) SL PRN (07:34)
[2018-11-03] MEDS ORDERED: Dextrose 50% Abboject 50 ML SYRINGE SLOW IVP PRN (07:41)
[2018-11-03] MEDS ORDERED: Dextrose 5% in Water 1,000 ML IV PRN (07:41)
[2018-11-03] MEDS ORDERED: metFORMIN 500 MG TAB PO SCH (08:00)
[2018-11-03] MEDS: Famotidine 20 MG TAB PO SCH ×2 (08:48→20:30)
[2018-11-03] MEDS: Aspirin 325 mg Enteric Coated Tablet PO SCH (08:48)
[2018-11-03] MEDS: Spironolactone 25 MG TAB PO SCH ×2 (08:48→20:32)
[2018-11-03] MEDS: Furosemide 40 MG TAB PO SCH ×2 (08:49→20:31)
[2018-11-03] MEDS: Lisinopril 5 MG TAB PO SCH ×2 (08:49→20:30)
[2018-11-03] MEDS: Polyethylene Glycol 3350 17 GM Packet PO SCH (08:50)
--- NOTE | 2018-11-03 09:46 | PRG ---
DATE OF SERVICE: 11/03/2018 SUBJECTIVE: This morning, she is awake, alert, and responsive. She is much better. X-ray shows improvement in her CHF. OBJECTIVE: VITAL SIGNS: Blood pressure is 135/80, pulse 70, respiratory rate 18, sats 97%. CHEST: Decreased breath sounds, no wheezing. CARDIAC: Normal S1, S2. ABDOMEN: No masses. Lytes are unremarkable. CBC unremarkable. IMPRESSION: 1. Congestive heart failure, status post coronary artery bypass graft. 2. Breast cancer. 3. Morbid obesity, superimposed pneumonia. 4. Sleep apnea. She has been transferred to a monitored bed out of the ICU. Continue PT supportive care. We can probably discontinue her Rosa catheter. Job ID: [id number]
--- NOTE | 2018-11-03 12:09 | PRG ---
DATE OF SERVICE: 11/03/2018 SUBJECTIVE: Ms. Nascimento is doing better. No current complaints. No chest pain, pressure, shortness of breath, or associated symptoms. OBJECTIVE: VITAL SIGNS: Blood pressure 111/64, pulse 79, temperature afebrile. GENERAL: Patient is a pleasant @@ who is in no acute distress. The patient appears their stated age. NEUROLOGIC: The patient is alert and oriented x3 with no focal neurologic deficits. HEENT: Sclerae without icterus. Mouth has moist mucous membranes with normal pallor. NECK: No JVD. Carotid upstroke brisk. No bruits bilaterally. LUNGS: Clear to auscultation with unlabored respirations. BACK: No scoliosis or kyphosis. CARDIAC: Regular rate and rhythm with normal S1 and S2. No S3 or S4 noted. No significant rubs, murmurs, thrills, or gallops noted throughout the precordium. PMI is not displaced. There is no parasternal heave. ABDOMEN: Soft, nontender, nondistended. No peritoneal signs present. No hepatosplenomegaly. No abnormal striae. EXTREMITIES: 2+ femoral and 2+ dorsalis pedis pulses. No cyanosis, clubbing, or edema. SKIN: No gross abnormalities. PERTINENT LABORATORY DATA: Hemoglobin 9.7. Creatinine 0.97. IMPRESSION: 1. Coronary artery disease. 2. Status post bypass surgery. 3. Ischemic MR? 4. Breast cancer. RECOMMENDATIONS: From a CV standpoint, Ms. Greenberg is doing very well. She is currently on beta-becka therapy and statin therapy. We will continue. Continue incentive spirometry and physical therapy. Okay to transfer to telemetry monitoring. Job ID: [id number]
[2018-11-03] MEDS: Guaifenesin DM 100-10/5 ML UDCUP PO PRN ×2 (15:14→20:30)
--- NOTE | 2018-11-03 16:58 | PDOC.HOSPP ---
- Subjective Encounter Date: 11/03/18 Encounter Time: 10:00 Subjective: Pt seen for followup re; CAD. Feels better. - Objective Vital Signs & Weight: Vital Signs (12 hours) Temp Pulse Pulse Pulse Resp BP BP 11/03/18 16:45 89 22 H 11/03/18 13:29 85 83 147/74 H 11/03/18 13:00 98.7 F 11/03/18 09:56 82 77 120/61 11/03/18 08:49 83 102/50 L 11/03/18 08:00 97.6 F 11/03/18 06:27 11/03/18 06:25 78 19 11/03/18 05:00 98.3 F BP BP Pulse Ox Pulse Ox Pulse Ox 11/03/18 16:45 148/67 H 100 11/03/18 13:29 115/55 L 99 100 11/03/18 13:00 11/03/18 09:56 131/60 95 11/03/18 08:49 11/03/18 08:00 100 11/03/18 06:27 99 11/03/18 06:25 99 11/03/18 05:00 Weight Admit Weight 266 lb 8.622 oz Weight 267 lb 13.786 oz Most Recent Monitor Data Heart Rate from ECG 85 NIBP 153/82 NIBP BP-Mean 105 Respiration from ECG 20 SpO2 98 I&O: 11/02/18 11/03/18 11/04/18 06:59 06:59 06:59 Intake Total 2085.5 3937 200 Output Total 1080 1835 785 Balance 1005.5 2102 -585 Result Diagrams: 11/03/18 01:03 11/03/18 01:03 Additional Labs: Accuchecks 11/03/18 11/03/18 11/03/18 11:14 05:58 00:12 POC Glucose 128 H 137 H 166 H 11/02/18 20:17 POC Glucose 159 H Labs and MARs reviewed by me EKG Reviewed by me: Yes (Tele: NSR) Hospitalist ROS - Review of Systems Cardiovascular: denies: chest pain, palpitations, orthopnea, paroxysmal noc. dyspnea, edema, light headedness Gastrointestinal: denies: nausea, vomitting, abdominal pain, diarrhea, constipation, melena, hematochezia - Medication Medications: Active Medications Generic Name Dose Route Start Last Admin Trade Name Freq PRN Reason Stop Dose Admin Hydrocodone Bitart/Acetaminophen 1 tab 11/01/18 12:12 11/03/18 14:38 [place] 5/325 PO 1 tab Q4H PRN Administration Moderate Pain (4-6) Hydrocodone Bitart/Acetaminophen 2 tab 11/01/18 12:12 11/03/18 05:51 [place] 5/325 PO 2 tab Q4H PRN Administration Severe Pain (7-10) Aspirin 325 mg 11/03/18 09:00 11/03/18 08:48 Ecotrin PO 325 mg DAILY PATTI Administration Atorvastatin Calcium 40 mg 11/02/18 21:00 11/02/18 20:47 Lipitor PO 40 mg HS PATTI Administration Famotidine 20 mg 11/03/18 09:00 11/03/18 08:48 Pepcid PO 20 mg BID PATTI Administration Furosemide 40 mg 11/03/18 09:00 11/03/18 08:49 Lasix PO 40 mg BID PATTI Administration Guaifenesin/Dextromethorphan 15 ml 11/03/18 07:34 11/03/18 15:14 Robitussin Dm PO 15 ml Q4H PRN Administration Cough Levofloxacin 500 mg 10/30/18 06:00 11/03/18 05:50 Levaquin PO 11/04/18 06:01 500 mg 0600 PATTI Administration Lisinopril 5 mg 11/03/18 09:00 11/03/18 08:49 Zestril PO 5 mg BID PATTI Administration Metoprolol Succinate 25 mg 11/02/18 21:00 11/02/18 20:47 Toprol Xl PO 25 mg QPM PATTI Administration Polyethylene Glycol 17 gm 11/02/18 09:00 11/03/18 08:50 Miralax PO Not Given DAILY PATTI Spironolactone 25 mg 11/03/18 09:00 11/03/18 08:48 Aldactone PO 25 mg BID PATTI Administration - Exam General - other findings: Obese Eye: anicteric sclera ENT: moist mucosa Neck: supple Heart: RRR Respiratory: CTAB Gastrointestinal: soft, normal bowel sounds Neurological: no weakness Psychiatric: normal affect, normal behavior Hosp A/P (1) CAD (coronary artery disease) Code(s): I25.10 - ATHSCL HEART DISEASE OF [place] CORONARY ARTERY W/O ANG PCTRS Status: Acute Qualifiers: Coronary Disease-Associated Artery/Lesion type: [place] artery [place] vs. transplanted heart: [place] heart Associated angina: without angina Qualified Code(s): I25.10 - Atherosclerotic heart disease of [place] coronary artery without angina pectoris (2) S/P CABG (coronary artery bypass graft) Code(s): Z95.1 - PRESENCE OF AORTOCORONARY BYPASS GRAFT Status: Acute (3) CHF (congestive heart failure) Code(s): I50.9 - HEART FAILURE, UNSPECIFIED Status: Acute Qualifiers: Heart failure type: systolic Heart failure chronicity: acute Qualified Code(s): I50.21 - Acute systolic (congestive) heart failure (4) Pulmonary infiltrates Code(s): R91.8 - OTHER NONSPECIFIC ABNORMAL FINDING OF LUNG FIELD Status: Acute (5) DM2 (diabetes mellitus, type 2) Status: Chronic Qualifiers: Diabetes mellitus intermediate project manager insulin use: without intermediate project manager use (6) Breast cancer Status: Chronic Qualifiers: Patient sex: female (7) HTN (hypertension) Code(s): I10 - ESSENTIAL (PRIMARY) HYPERTENSION Status: Chronic Qualifiers: Hypertension type: essential hypertension Qualified Code(s): I10 - Essential (primary) hypertension (8) Hypothyroidism Code(s): E03.9 - HYPOTHYROIDISM, UNSPECIFIED Status: Chronic Qualifiers: Hypothyroidism type: unspecified Qualified Code(s): E03.9 - Hypothyroidism , unspecified (9) Obesity (BMI 30-39.9) Code(s): E66.9 - OBESITY, UNSPECIFIED Status: Chronic (10) Acute respiratory failure with hypoxia Code(s): J96.01 - ACUTE RESPIRATORY FAILURE WITH HYPOXIA Status: Resolved - Plan PT/OT, out of bed/ambulate s/p CABG. On thyroid replacement therapy. BP controlled. Discharge planning per CV surgery.
[2018-11-03] MEDS: Atorvastatin Calcium 40 MG TAB PO SCH (20:30)
[2018-11-03] MEDS: Melatonin 3 MG TAB PO PRN (22:50)
[2018-11-04] MEDS: Guaifenesin DM 100-10/5 ML UDCUP PO PRN ×4 (00:02→21:40)
[2018-11-04] MEDS: HYDROcodone/Acetaminophen 5/325 mg Tablet PO PRN ×4 (06:04→21:33)
[2018-11-04] MEDS ORDERED: Metolazone 5 MG TAB PO SCH (06:15)
[2018-11-04] MEDS ORDERED: Potassium Chloride 20 MEQ TAB PO SCH (06:15)
[2018-11-04] MEDS ORDERED: Furosemide 40 MG/4 ML VIAL SLOW IVP SCH ×2 (09:00→16:00)
[2018-11-04] MEDS: Famotidine 20 MG TAB PO SCH ×2 (09:59→21:35)
[2018-11-04] MEDS: Polyethylene Glycol 3350 17 GM Packet PO SCH (09:59)
[2018-11-04] MEDS: Lisinopril 5 MG TAB PO SCH ×2 (09:59→21:34)
[2018-11-04] MEDS: Spironolactone 25 MG TAB PO SCH ×2 (09:59→21:32)
[2018-11-04] MEDS: Aspirin 325 mg Enteric Coated Tablet PO SCH (10:00)
--- NOTE | 2018-11-04 10:25 | PRG ---
DATE OF SERVICE: 11/04/2018 SUBJECTIVE: Yari Nascimento is better this morning. She did not use a BiPAP last night. OBJECTIVE: VITAL SIGNS: Temperature 97, pulse 70, respiratory rate 18, saturations are 95% on 2 L, blood pressure 110/57. CHEST: Decreased breath sounds. No wheezing. CARDIAC: Normal S1 and S2. No gallops. ABDOMEN: No masses. ASSESSMENT: Status post coronary artery bypass graft, emergency congestive heart failure, morbid obesity, breast cancer, probably sleep apnea. PLAN: Continue PT, supportive care. Disposition as per surgery. Outpatient sleep study. Job ID: [id number]
[2018-11-04] MEDS ORDERED: Thyroid 30 MG TAB PO SCH ×2 (11:30→13:45)
[2018-11-04] MEDS ORDERED: Levothyroxine Sodium 112 MCG TAB PO SCH (12:15)
--- NOTE | 2018-11-04 13:54 | PDOC.HOSPP ---
- Subjective Encounter Date: 11/04/18 Encounter Time: 08:00 Subjective: Pt seen for followup re: CAD. Feels well, no complaints. - Objective Vital Signs & Weight: Vital Signs (12 hours) Temp Pulse Resp BP BP Pulse Ox 11/04/18 09:59 73 133/60 11/04/18 08:00 97.8 F 79 18 112/57 L 100 11/04/18 04:00 70 16 125/61 96 Weight Admit Weight 266 lb 8.622 oz Weight 266 lb 4.8 oz Most Recent Monitor Data Heart Rate from ECG 85 NIBP 153/82 NIBP BP-Mean 105 Respiration from ECG 20 SpO2 98 I&O: 11/03/18 11/04/18 11/05/18 06:59 06:59 06:59 Intake Total 3937 650 250 Output Total 3285 2135 300 Balance 2102 -1485 -50 Result Diagrams: 11/03/18 01:03 11/03/18 01:03 Additional Labs: Accuchecks 11/04/18 11/04/18 11/03/18 10:36 05:23 20:14 POC Glucose 125 H 140 H 167 H 11/03/18 17:27 POC Glucose 133 H Labs and MARs reviewed by me EKG Reviewed by me: Yes (Tele: NSR) Hospitalist ROS - Review of Systems Respiratory: denies: cough, shortness of breath, SOB with excertion, pleuritic pain, wheezing Cardiovascular: denies: chest pain, palpitations, orthopnea, paroxysmal noc. dyspnea, edema, light headedness - Medication Medications: Active Medications Generic Name Dose Route Start Last Admin Trade Name Freq PRN Reason Stop Dose Admin Hydrocodone Bitart/Acetaminophen 1 tab 11/01/18 12:12 11/04/18 13:34 [place] 5/325 PO 1 tab Q4H PRN Administration Moderate Pain (4-6) Hydrocodone Bitart/Acetaminophen 2 tab 11/01/18 12:12 11/04/18 06:04 [place] 5/325 PO 2 tab Q4H PRN Administration Severe Pain (7-10) Aspirin 325 mg 11/03/18 09:00 11/04/18 10:00 Ecotrin PO 325 mg DAILY PATTI Administration Atorvastatin Calcium 40 mg 11/02/18 21:00 11/03/18 20:30 Lipitor PO 40 mg HS PATTI Administration Famotidine 20 mg 11/03/18 09:00 11/04/18 09:59 Pepcid PO 20 mg BID PATTI Administration Furosemide 40 mg 11/04/18 09:00 11/04/18 10:01 Lasix SLOW IVP 40 mg DAILY PATTI Administration Guaifenesin/Dextromethorphan 15 ml 11/03/18 07:34 11/04/18 06:03 Robitussin Dm PO 15 ml Q4H PRN Administration Cough Levothyroxine Sodium 224 mcg 11/04/18 12:15 11/04/18 13:39 Synthroid PO 11/04/18 14:15 224 mcg NOW PATTI Administration Lisinopril 5 mg 11/03/18 09:00 11/04/18 09:59 Zestril PO 5 mg BID PATTI Administration Melatonin 3 mg 11/03/18 22:36 11/03/18 22:50 Melatonin PO 3 mg HS PRN Administration Insomnia Metoprolol Succinate 25 mg 11/02/18 21:00 11/03/18 20:30 Toprol Xl PO 25 mg QPM PATTI Administration Polyethylene Glycol 17 gm 11/02/18 09:00 11/04/18 09:59 Miralax PO 17 gm DAILY PATTI Administration Potassium Chloride 20 meq 11/04/18 08:00 11/04/18 10:00 Klor-Con PO 20 meq QAM-WM PATTI Administration Spironolactone 25 mg 11/03/18 09:00 11/04/18 09:59 Aldactone PO 25 mg BID PATTI Administration - Exam General - other findings: Obesity Eye: anicteric sclera ENT: moist mucosa Neck: supple, no thyromegaly Heart: RRR, no rubs Respiratory: CTAB Gastrointestinal: soft, non-tender Neurological: no weakness Psychiatric: normal affect, normal behavior Hosp A/P (1) CAD (coronary artery disease) Code(s): I25.10 - ATHSCL HEART DISEASE OF [place] CORONARY ARTERY W/O ANG PCTRS Status: Acute Qualifiers: Coronary Disease-Associated Artery/Lesion type: [place] artery [place] vs. transplanted heart: [place] heart Associated angina: without angina Qualified Code(s): I25.10 - Atherosclerotic heart disease of [place] coronary artery without angina pectoris (2) S/P CABG (coronary artery bypass graft) Code(s): Z95.1 - PRESENCE OF AORTOCORONARY BYPASS GRAFT Status: Acute (3) CHF (congestive heart failure) Code(s): I50.9 - HEART FAILURE, UNSPECIFIED Status: Acute Qualifiers: Heart failure type: systolic Heart failure chronicity: acute Qualified Code(s): I50.21 - Acute systolic (congestive) heart failure (4) Pulmonary infiltrates Code(s): R91.8 - OTHER NONSPECIFIC ABNORMAL FINDING OF LUNG FIELD Status: Acute (5) DM2 (diabetes mellitus, type 2) Status: Chronic Qualifiers: Diabetes mellitus skilled nursing insulin use: without skilled nursing use (6) Breast cancer Status: Chronic Qualifiers: Patient sex: female (7) HTN (hypertension) Code(s): I10 - ESSENTIAL (PRIMARY) HYPERTENSION Status: Chronic Qualifiers: Hypertension type: essential hypertension Qualified Code(s): I10 - Essential (primary) hypertension (8) Hypothyroidism Code(s): E03.9 - HYPOTHYROIDISM, UNSPECIFIED Status: Chronic Qualifiers: Hypothyroidism type: unspecified Qualified Code(s): E03.9 - Hypothyroidism , unspecified (9) Obesity (BMI 30-39.9) Code(s): E66.9 - OBESITY, UNSPECIFIED Status: Chronic (10) Acute respiratory failure with hypoxia Code(s): J96.01 - ACUTE RESPIRATORY FAILURE WITH HYPOXIA Status: Resolved - Plan s/p CABG. Continue synthroid and [place] thyroid replacement therapy. BP controlled. Discharge planning per CV surgery. Pt will likely need Inpt rehab vs SNU.
[2018-11-04] MEDS ORDERED: Sodium Chloride 0.9% 10 ML ONE (15:00)
[2018-11-04] MEDS: Ondansetron PF 4 MG/2 ML Vial IVP PRN (15:09)
[2018-11-04] MEDS: Insulin Regular 300 UNITS/3 ML VIAL SC PRN ×2 (19:13→21:36)
[2018-11-04] MEDS: Atorvastatin Calcium 40 MG TAB PO SCH (21:34)
[2018-11-05 05:41] LABS: Anion Gap 14 mmol/L (10-20); BUN (Urea Nitrogen) 32 mg/dL (9.8-20.1); Calc. Creatinine Clearance 128 mL/min (70-130); Calcium 9.1 mg/dL (7.8-10.44); Carbon Dioxide 31 mmol/L (23-31); Chloride 100 mmol/L (98-107); Estimated GFR-MDRD 66; Glucose 127 mg/dL (80-115); Potassium 3.7 mmol/L (3.5-5.1); Sodium 141 mmol/L (136-145)
[2018-11-05] MEDS: Levothyroxine Sodium 112 MCG TAB PO SCH (06:16)
[2018-11-05] MEDS: HYDROcodone/Acetaminophen 5/325 mg Tablet PO PRN ×3 (06:17→14:27)
[2018-11-05] MEDS: Polyethylene Glycol 3350 17 GM Packet PO SCH (10:14)
[2018-11-05] MEDS: Spironolactone 25 MG TAB PO SCH ×2 (10:14→22:12)
[2018-11-05] MEDS: Aspirin 325 mg Enteric Coated Tablet PO SCH (10:14)
[2018-11-05] MEDS: Famotidine 20 MG TAB PO SCH ×2 (10:14→22:11)
[2018-11-05] MEDS: Lisinopril 5 MG TAB PO SCH ×2 (10:14→22:11)
[2018-11-05] MEDS: Furosemide 40 MG/4 ML VIAL SLOW IVP SCH (14:27)
[2018-11-05] MEDS: Guaifenesin DM 100-10/5 ML UDCUP PO PRN (14:38)
[2018-11-05] MEDS ORDERED: Diltiazem 125 MG in Sodium Chloride 0.9% 100 ML IVPB SCH (15:30)
--- NOTE | 2018-11-05 15:37 | PDOC.HOSPP ---
- Subjective Encounter Date: 11/05/18 Subjective: After walking a bit, she felt tired and her heart was fluttering. I was notified that her monitor is showing rapid a-flutter She is not having chest pain and no sob. - Objective Vital Signs & Weight: Vital Signs (12 hours) Temp Pulse Pulse Pulse Resp BP BP 11/05/18 14:32 106 H 85 144/63 H 130/92 H 11/05/18 10:42 99 84 132/58 L 127/58 L 11/05/18 10:14 74 11/05/18 07:51 99.2 F 74 18 11/05/18 07:15 11/05/18 04:00 99.4 F 75 20 BP BP Pulse Ox Pulse Ox Pulse Ox 11/05/18 14:32 96 96 11/05/18 10:42 97 97 11/05/18 10:14 11/05/18 07:51 125/59 L 100 11/05/18 07:15 96 11/05/18 04:00 130/62 99 Weight Admit Weight 266 lb 8.622 oz Weight 264 lb 9.6 oz Most Recent Monitor Data Heart Rate from ECG 85 NIBP 153/82 NIBP BP-Mean 105 Respiration from ECG 20 SpO2 98 I&O: 11/04/18 11/05/18 11/06/18 06:59 06:59 06:59 Intake Total 650 2095 Output Total 2135 2230 Balance -1485 -135 Result Diagrams: 11/03/18 01:03 11/05/18 04:53 Additional Labs: Accuchecks 11/05/18 11/05/18 11/05/18 11:13 06:00 02:48 POC Glucose 140 H 128 H 118 H 11/04/18 11/04/18 20:25 17:13 POC Glucose 152 H 171 H Hospitalist ROS - Medication Medications: Active Medications Generic Name Dose Route Start Last Admin Trade Name Freq PRN Reason Stop Dose Admin Hydrocodone Bitart/Acetaminophen 1 tab 11/01/18 12:12 11/05/18 14:27 [place] 5/325 PO 1 tab Q4H PRN Administration Moderate Pain (4-6) Hydrocodone Bitart/Acetaminophen 2 tab 11/01/18 12:12 11/05/18 10:12 [place] 5/325 PO 2 tab Q4H PRN Administration Severe Pain (7-10) Aspirin 325 mg 11/03/18 09:00 11/05/18 10:14 Ecotrin PO 325 mg DAILY PATTI Administration Atorvastatin Calcium 40 mg 11/02/18 21:00 11/04/18 21:34 Lipitor PO 40 mg HS PATTI Administration Famotidine 20 mg 11/03/18 09:00 11/05/18 10:14 Pepcid PO 20 mg BID PATTI Administration Furosemide 80 mg 11/05/18 14:00 11/05/18 14:27 Lasix SLOW IVP 80 mg 0600,1400 PATTI Administration Guaifenesin/Dextromethorphan 15 ml 11/03/18 07:34 11/05/18 14:38 Robitussin Dm PO 15 ml Q4H PRN Administration Cough Insulin Human Regular 0 units 11/03/18 07:41 11/04/18 21:36 Humulin R SC 3 unit Q4H PRN Administration POST CABG SLIDING SCALE Protocol Levothyroxine Sodium 224 mcg 11/05/18 06:00 11/05/18 06:16 Synthroid PO 224 mcg 0600 PATTI Administration Lisinopril 5 mg 11/03/18 09:00 11/05/18 10:14 Zestril PO 5 mg BID PATTI Administration Melatonin 3 mg 11/03/18 22:36 11/03/18 22:50 Melatonin PO 3 mg HS PRN Administration Insomnia Metoprolol Succinate 25 mg 11/02/18 21:00 11/04/18 21:32 Toprol Xl PO 25 mg QPM PATTI Administration Ondansetron HCl 4 mg 11/03/18 07:34 11/04/18 15:09 Zofran IVP 4 mg Q6H PRN Administration Nausea/Vomiting Polyethylene Glycol 17 gm 11/02/18 09:00 11/05/18 10:14 Miralax PO 17 gm DAILY PATTI Administration Potassium Chloride 20 meq 11/04/18 08:00 11/05/18 10:13 Klor-Con PO 20 meq QAM-WM PATTI Administration Spironolactone 25 mg 11/03/18 09:00 11/05/18 10:14 Aldactone PO 25 mg BID PATTI Administration - Exam General Appearance: NAD, awake alert Eye: PERRL, anicteric sclera ENT: normocephalic atraumatic, no oropharyngeal lesions, moist mucosa Neck: supple, symmetric, no JVD, no thyromegaly, no lymphadenopathy, no carotid bruit Heart: irregular (distant heart sounds) Gastrointestinal: soft Extremities: 2+ LE edema (bilaterally) Neurological: CN's grossly intact, normal sensation to touch, no weakness, no focal deficits, no new deficit Hosp A/P (1) Atrial fibrillation and flutter Code(s): I48.91 - UNSPECIFIED ATRIAL FIBRILLATION; I48.92 - UNSPECIFIED ATRIAL FLUTTER Status: Acute (2) CHF (congestive heart failure) Code(s): I50.9 - HEART FAILURE, UNSPECIFIED Status: Chronic Qualifiers: Heart failure type: systolic Heart failure chronicity: acute Qualified Code(s): I50.21 - Acute systolic (congestive) heart failure (3) S/P CABG (coronary artery bypass graft) Code(s): Z95.1 - PRESENCE OF AORTOCORONARY BYPASS GRAFT Status: Chronic (4) DM2 (diabetes mellitus, type 2) Status: Chronic Qualifiers: Diabetes mellitus exterminator helper termite insulin use: without exterminator helper termite use (5) HTN (hypertension) Code(s): I10 - ESSENTIAL (PRIMARY) HYPERTENSION Status: Chronic Qualifiers: Hypertension type: essential hypertension Qualified Code(s): I10 - Essential (primary) hypertension - Plan Cardiac---new aflutter---spoke with Cardio--will start Cardizem drip, if no response will start Amio---recheck labs including mg and TSH. Her legs are swollen , I would like to do a venous doppler
[2018-11-05 16:23] LABS: Anion Gap 14 mmol/L (10-20); BUN (Urea Nitrogen) 42 mg/dL (9.8-20.1); Calc. Creatinine Clearance 123 mL/min (70-130); Calcium 9.6 mg/dL (7.8-10.44); Carbon Dioxide 32 mmol/L (23-31); Chloride 100 mmol/L (98-107); Estimated GFR-MDRD 63; Glucose 139 mg/dL (80-115); Potassium 3.9 mmol/L (3.5-5.1); Sodium 142 mmol/L (136-145)
[2018-11-05 16:31] LABS: Troponin I 0.398 ng/mL (< 0.028)
--- NOTE | 2018-11-05 17:00 | PRG ---
DATE OF SERVICE: 11/05/2018 SUBJECTIVE: Yari Nascimento has no complaints. She just got back from a long walk. OBJECTIVE: GENERAL: She is in no distress. VITAL SIGNS: Blood pressure 144/63, heart rate 106, respiratory rate 18. LUNGS: Clear. HEART: Regular rhythm. ABDOMEN: Soft. EXTREMITIES: Without asymmetry or edema. IMPRESSION: 1. Status post coronary artery bypass grafting. 2. History of breast cancer with ongoing chemotherapy. 3. Obesity with possible sleep apnea. PLAN: Continue supportive care. Job ID: [id number]
[2018-11-05] MEDS: Atorvastatin Calcium 40 MG TAB PO SCH (22:11)
[2018-11-06 05:57] LABS: #Eosinphils 0.3 thou/uL (0.0-0.7); #Monocytes 0.8 thou/uL (0.11-0.59); #Neutrophils 4.3 thou/uL (1.40-6.50); %Basophils 0.1 % (0.0-1.0); %Eosinophils 4.2 % (0.0-10.0); %Lymphocytes 15.4 % (21.0-51.0); %Monocytes 12.3 % (0.0-10.0); Hemoglobin 9.7 g/dL (12.0-16.0); Mean Corpuscular HGB CONC 32.3 g/dL (32.0-36.0); Mean Corpuscular Hemoglobin 31.9 pg (27.0-31.0); Mean Corpuscular Volume 98.8 fL (78.0-98.0); Mean Platelet Volume 7.2 fL (7.4-10.4); Platelet Count 414 thou/uL (130-400); RBC Distribution Width 14.8 % (11.5-14.5); Red Blood Cell (RBC) Count 3.05 mill/uL (4.20-5.40); White Blood Cell (WBC) Count 6.3 thou/uL (4.8-10.8)
[2018-11-06] MEDS: Levothyroxine Sodium 112 MCG TAB PO SCH (06:11)
[2018-11-06] MEDS: Furosemide 40 MG/4 ML VIAL SLOW IVP SCH ×2 (06:11→14:44)
[2018-11-06 06:14] LABS: Anion Gap 15 mmol/L (10-20); BUN (Urea Nitrogen) 47 mg/dL (9.8-20.1); Calc. Creatinine Clearance 127 mL/min (70-130); Calcium 9.4 mg/dL (7.8-10.44); Carbon Dioxide 28 mmol/L (23-31); Chloride 102 mmol/L (98-107); Estimated GFR-MDRD 66; Glucose 140 mg/dL (80-115); Potassium 4.1 mmol/L (3.5-5.1); Sodium 141 mmol/L (136-145)
[2018-11-06] MEDS: Famotidine 20 MG TAB PO SCH ×2 (09:44→22:03)
[2018-11-06] MEDS: Spironolactone 25 MG TAB PO SCH ×2 (09:44→22:04)
[2018-11-06] MEDS: Lisinopril 5 MG TAB PO SCH ×2 (09:45→23:02)
[2018-11-06] MEDS: Aspirin 325 mg Enteric Coated Tablet PO SCH (09:45)
[2018-11-06] MEDS: Polyethylene Glycol 3350 17 GM Packet PO SCH (09:45)
[2018-11-06] MEDS: Sodium Chloride 0.9% 10 ML ONE (09:46)
[2018-11-06] MEDS: Insulin Regular 300 UNITS/3 ML VIAL SC PRN (13:02)
--- NOTE | 2018-11-06 14:24 | PRG ---
DATE OF SERVICE: 11/06/2018 SUBJECTIVE: Yari Nascimento is ambulated this morning without difficulty. She is still having palpitations related to her atrial fibrillation. She is on a Cardizem drip. She actually convinced herself that her palpitations were a situation where she was getting ready to and was panicking about this when I walked in the room. OBJECTIVE: LUNGS: Clear. She is in no distress. VITAL SIGNS: Have been otherwise stable. She has no fast rates recorded. Last blood pressure is 129/57. PLAN: I have recommended Xanax at 0.25 mg t.i.d. p.r.n. She will continue with physical therapy post-coronary artery bypass grafting. She appears stable at this time. Job ID: [id number]
[2018-11-06] MEDS ORDERED: Sodium Chloride 0.9% 10 ML ONE (14:34)
--- NOTE | 2018-11-06 15:19 | PDOC.HOSPP ---
- Subjective Encounter Date: 11/06/18 Subjective: She has no specific complaints except that she was anxious all night. she is coughing clear phlegm. she did ambulate today. - Objective Vital Signs & Weight: Vital Signs (12 hours) Temp Pulse Pulse Pulse Resp BP BP 11/06/18 14:53 100.2 F H 82 18 11/06/18 13:34 90 80 129/57 L 11/06/18 12:00 99.4 F 78 18 11/06/18 09:45 78 121/57 L 11/06/18 09:03 78 69 119/56 L 11/06/18 08:00 99.5 F 69 20 11/06/18 07:17 11/06/18 05:40 11/06/18 04:00 98 F 81 20 BP BP BP Pulse Ox Pulse Ox Pulse Ox 11/06/18 14:53 124/59 L 11/06/18 13:34 114/53 L 98 98 11/06/18 12:00 111/56 L 11/06/18 09:45 11/06/18 09:03 129/60 98 97 11/06/18 08:00 132/59 L 95 11/06/18 07:17 99 11/06/18 05:40 94 L 11/06/18 04:00 128/58 L 94 L Weight Admit Weight 266 lb 8.622 oz Weight 260 lb 4.8 oz Most Recent Monitor Data Heart Rate from ECG 85 NIBP 153/82 NIBP BP-Mean 105 Respiration from ECG 20 SpO2 98 I&O: 11/05/18 11/06/18 11/07/18 06:59 06:59 06:59 Intake Total 5790 1368 480 Output Total 0360 4040 Balance -135 -4812 480 Result Diagrams: 11/06/18 05:42 11/06/18 05:42 Additional Labs: Accuchecks 11/06/18 11/05/18 11/05/18 10:53 20:51 16:53 POC Glucose 159 H 112 H 156 H Hospitalist ROS - Medication Medications: Active Medications Generic Name Dose Route Start Last Admin Trade Name Freq PRN Reason Stop Dose Admin Hydrocodone Bitart/Acetaminophen 1 tab 11/01/18 12:12 11/05/18 14:27 [place] 5/325 PO 1 tab Q4H PRN Administration Moderate Pain (4-6) Hydrocodone Bitart/Acetaminophen 2 tab 11/01/18 12:12 11/05/18 10:12 [place] 5/325 PO 2 tab Q4H PRN Administration Severe Pain (7-10) Aspirin 325 mg 11/03/18 09:00 11/06/18 09:45 Ecotrin PO 325 mg DAILY PATTI Administration Atorvastatin Calcium 40 mg 11/02/18 21:00 11/05/18 22:11 Lipitor PO 40 mg HS PATTI Administration Famotidine 20 mg 11/03/18 09:00 11/06/18 09:44 Pepcid PO 20 mg BID PATTI Administration Furosemide 80 mg 11/05/18 14:00 11/06/18 14:44 Lasix SLOW IVP 80 mg 0600,1400 PATTI Administration Guaifenesin/Dextromethorphan 15 ml 11/03/18 07:34 11/05/18 14:38 Robitussin Dm PO 15 ml Q4H PRN Administration Cough Insulin Human Regular 0 units 11/03/18 07:41 11/06/18 13:02 Humulin R SC 3 unit Q4H PRN Administration POST CABG SLIDING SCALE Protocol Levothyroxine Sodium 224 mcg 11/05/18 06:00 11/06/18 06:11 Synthroid PO 224 mcg 0600 PATTI Administration Lisinopril 5 mg 11/03/18 09:00 11/06/18 09:45 Zestril PO 5 mg BID PATTI Administration Melatonin 3 mg 11/03/18 22:36 11/03/18 22:50 Melatonin PO 3 mg HS PRN Administration Insomnia Ondansetron HCl 4 mg 11/03/18 07:34 11/04/18 15:09 Zofran IVP 4 mg Q6H PRN Administration Nausea/Vomiting Polyethylene Glycol 17 gm 11/02/18 09:00 11/06/18 09:45 Miralax PO 17 gm DAILY PATTI Administration Potassium Chloride 20 meq 11/04/18 08:00 11/06/18 09:44 Klor-Con PO 20 meq QAM-WM PATTI Administration Spironolactone 25 mg 11/03/18 09:00 11/06/18 09:44 Aldactone PO 25 mg BID PATTI Administration - Exam General Appearance: NAD, awake alert Eye: PERRL, anicteric sclera ENT: normocephalic atraumatic, no oropharyngeal lesions, moist mucosa Neck: supple, symmetric, no JVD, no thyromegaly, no lymphadenopathy, no carotid bruit Heart: RRR, no murmur, no gallops, no rubs, normal peripheral pulses Respiratory: rales (diffuse and bilateral, with poor air entry bilaterally.) Extremities: 2+ LE edema Neurological: CN's grossly intact, normal sensation to touch, no weakness, no focal deficits, no new deficit Hosp A/P (1) Atrial fibrillation and flutter Code(s): I48.91 - UNSPECIFIED ATRIAL FIBRILLATION; I48.92 - UNSPECIFIED ATRIAL FLUTTER Status: Acute (2) CHF (congestive heart failure) Code(s): I50.9 - HEART FAILURE, UNSPECIFIED Status: Chronic Qualifiers: Heart failure type: systolic Heart failure chronicity: acute Qualified Code(s): I50.21 - Acute systolic (congestive) heart failure (3) S/P CABG (coronary artery bypass graft) Code(s): Z95.1 - PRESENCE OF AORTOCORONARY BYPASS GRAFT Status: Chronic (4) DM2 (diabetes mellitus, type 2) Status: Chronic Qualifiers: Diabetes mellitus nursing home insulin use: without termite control representative use (5) HTN (hypertension) Code(s): I10 - ESSENTIAL (PRIMARY) HYPERTENSION Status: Chronic Qualifiers: Hypertension type: essential hypertension Qualified Code(s): I10 - Essential (primary) hypertension - Plan Cardiac---new aflutter---now back in sinus rythm, will stop cardizem drip and her toprol was increased , she had afib post op it seems, Cardiology is following. Her legs are swollen , I would like to do a venous doppler ---already ordered. she did have an increase in her temperature---will do a cxr and UA, she does not look toxic, I encouraged her to use in IS.
[2018-11-06] MEDS ORDERED: Diltiazem 125 MG in Sodium Chloride 0.9% 100 ML IVPB SCH (16:00)
--- NOTE | 2018-11-06 16:07 | ULT ---
BILATERAL LOWER EXTREMITY VENOUS DOPPLER ULTRASOUND: History: Bilateral lower extremity edema. Technique: Grayscale, color flow, and spectral doppler imaging of the deep venous systems of the lowe r extremities performed bilaterally. FINDINGS: There is good flow, compression, and augmentation within the common femoral, femoral, deep femoral, p opliteal, and greater saphenous veins. IMPRESSION: No evidence of DVT in either lower extremity. POS: [facility]
[2018-11-06 16:15] LABS: Bacteria/HPF 4+ HPF (None Seen); Bilirubin Negative (Negative); Blood, Urine Negative (Negative); Clarity Clear (Clear); Glucose, Urine (Dipstick) Normal (Negative); Leukocyte 25 Leu/uL (Negative); Nitrite Negative (Negative); Protein, Urine (Dipstick) Negative (Neg-Trace); RBC/HPF 0-3 HPF (0-3); Squamous Epithelial 0-3 HPF (0-3); Urobilinogen Normal mg/dL (Less than 2)
[2018-11-06 16:16] LABS: Urine Culture Reflex Yes Yes
--- NOTE | 2018-11-06 18:05 | RAD ---
PORTABLE CHEST ONE VIEW: Date: 11-06-18 Time: 5:28 p.m. History: Fever. FINDINGS/IMPRESSION: Comparison made to exam of 11-03-18. Changes of median sternotomy changes again seen. Left sided central venous catheter remains in place. The heart size is enlarged. There are bilateral pleural effusions, left slightly larger than right. No pneumothoraces or guerda pulmonary edema are identified. POS: [facility] [place]
[2018-11-06] MEDS: Atorvastatin Calcium 40 MG TAB PO SCH (22:03)
[2018-11-06] MEDS: HYDROcodone/Acetaminophen 5/325 mg Tablet PO PRN (23:09)
[2018-11-07] MEDS: Furosemide 40 MG/4 ML VIAL SLOW IVP SCH ×2 (05:47→14:22)
[2018-11-07] MEDS: Levothyroxine Sodium 112 MCG TAB PO SCH (05:48)
[2018-11-07 06:36] LABS: #Eosinphils 0.2 thou/uL (0.0-0.7); #Monocytes 0.7 thou/uL (0.11-0.59); #Neutrophils 3.8 thou/uL (1.40-6.50); %Basophils 0.5 % (0.0-1.0); %Eosinophils 3.6 % (0.0-10.0); %Lymphocytes 17.1 % (21.0-51.0); %Monocytes 11.7 % (0.0-10.0); Hemoglobin 9.6 g/dL (12.0-16.0); Mean Corpuscular HGB CONC 31.6 g/dL (32.0-36.0); Mean Corpuscular Hemoglobin 30.6 pg (27.0-31.0); Mean Corpuscular Volume 96.9 fL (78.0-98.0); Mean Platelet Volume 7.3 fL (7.4-10.4); Platelet Count 460 thou/uL (130-400); RBC Distribution Width 14.7 % (11.5-14.5); Red Blood Cell (RBC) Count 3.14 mill/uL (4.20-5.40); White Blood Cell (WBC) Count 5.7 thou/uL (4.8-10.8)
[2018-11-07 06:47] LABS: Troponin I 0.162 ng/mL (< 0.028)
[2018-11-07 06:48] LABS: Anion Gap 15 mmol/L (10-20); BUN (Urea Nitrogen) 38 mg/dL (9.8-20.1); Calc. Creatinine Clearance 127 mL/min (70-130); Calcium 9.8 mg/dL (7.8-10.44); Carbon Dioxide 33 mmol/L (23-31); Chloride 97 mmol/L (98-107); Estimated GFR-MDRD 68; Glucose 132 mg/dL (80-115); Magnesium 1.5 mg/dL (1.6-2.6); Potassium 3.5 mmol/L (3.5-5.1); Sodium 141 mmol/L (136-145)
[2018-11-07] MEDS: Thyroid 30 MG TAB PO SCH (07:17)
[2018-11-07] MEDS: Aspirin 81 mg Enteric Coated Tablet PO SCH (09:04)
[2018-11-07] MEDS: Spironolactone 25 MG TAB PO SCH ×2 (09:05→20:53)
[2018-11-07] MEDS: Famotidine 20 MG TAB PO SCH ×2 (09:05→20:54)
[2018-11-07] MEDS: Lisinopril 5 MG TAB PO SCH ×2 (09:05→20:51)
[2018-11-07] MEDS: Polyethylene Glycol 3350 17 GM Packet PO SCH (09:05)
[2018-11-07] MEDS: Sodium Chloride 0.9% 10 ML ONE (09:07)
[2018-11-07] MEDS: Insulin Regular 300 UNITS/3 ML VIAL SC PRN ×3 (09:09→21:30)
[2018-11-07] MEDS ORDERED: Sodium Chloride 0.9% 10 ML ONE ×2 (10:11→14:10)
[2018-11-07] MEDS ORDERED: Potassium Chloride 20 MEQ TAB PO SCH (10:15)
[2018-11-07] MEDS ORDERED: Amiodarone 150 MG, Admixture Fee 1 EACH in Dextrose 5% in Water 100 ML IVPB SCH (10:15)
[2018-11-07] MEDS ORDERED: Magnesium 2 GM/50 ML 2 GM in Premix Bag 1 BAG IVPB SCH (10:15)
[2018-11-07] MEDS ORDERED: Metoprolol Tartrate 5 MG/5 ML VIAL IVP SCH (10:15)
--- NOTE | 2018-11-07 10:23 | PDOC.HOSPP ---
- Subjective Encounter Date: 11/07/18 Subjective: she developped afib again, appears anxious but in no distress. - Objective Vital Signs & Weight: Vital Signs (12 hours) Temp Pulse Resp BP BP BP Pulse Ox 11/07/18 09:05 72 123/58 L 11/07/18 08:00 98.4 F 72 18 123/58 L 98 11/07/18 07:21 95 11/07/18 04:20 97.8 F 68 18 121/54 L 96 11/06/18 23:02 81 130/76 Weight Admit Weight 266 lb 8.622 oz Weight 258 lb 14.4 oz Most Recent Monitor Data Heart Rate from ECG 85 NIBP 153/82 NIBP BP-Mean 105 Respiration from ECG 20 SpO2 98 I&O: 11/06/18 11/07/18 11/08/18 06:59 06:59 06:59 Intake Total 1368 1302.5 Output Total 4040 3310 Balance -2672 -2007.5 Result Diagrams: 11/07/18 05:58 11/07/18 05:58 Additional Labs: Accuchecks 11/07/18 11/06/18 11/06/18 05:54 20:47 16:45 POC Glucose 143 H 127 H 117 H 11/06/18 11/06/18 10:53 05:27 POC Glucose 159 H 144 H Hospitalist ROS - Medication Medications: Active Medications Generic Name Dose Route Start Last Admin Trade Name Freq PRN Reason Stop Dose Admin Hydrocodone Bitart/Acetaminophen 1 tab 11/01/18 12:12 11/05/18 14:27 [place] 5/325 PO 1 tab Q4H PRN Administration Moderate Pain (4-6) Hydrocodone Bitart/Acetaminophen 2 tab 11/01/18 12:12 11/06/18 23:09 [place] 5/325 PO 2 tab Q4H PRN Administration Severe Pain (7-10) Aspirin 81 mg 11/07/18 09:00 11/07/18 09:04 Ecotrin PO 81 mg DAILY PATTI Administration Atorvastatin Calcium 40 mg 11/02/18 21:00 11/06/18 22:03 Lipitor PO 40 mg HS PATTI Administration Famotidine 20 mg 11/03/18 09:00 11/07/18 09:05 Pepcid PO 20 mg BID PATTI Administration Furosemide 80 mg 11/05/18 14:00 11/07/18 05:47 Lasix SLOW IVP 80 mg 0600,1400 PATTI Administration Guaifenesin/Dextromethorphan 15 ml 11/03/18 07:34 11/05/18 14:38 Robitussin Dm PO 15 ml Q4H PRN Administration Cough Insulin Human Regular 0 units 11/03/18 07:41 11/07/18 09:09 Humulin R SC 3 unit Q4H PRN Administration POST CABG SLIDING SCALE Protocol Levothyroxine Sodium 224 mcg 11/05/18 06:00 11/07/18 05:48 Synthroid PO 224 mcg 0600 PATTI Administration Lisinopril 5 mg 11/03/18 09:00 11/07/18 09:05 Zestril PO 5 mg BID PATTI Administration Melatonin 3 mg 11/03/18 22:36 11/03/18 22:50 Melatonin PO 3 mg HS PRN Administration Insomnia Metoprolol Succinate 50 mg 11/06/18 21:00 11/06/18 20:30 Toprol Xl PO 50 mg QPM PATTI Administration Metoprolol Tartrate 2.5 mg 11/07/18 10:15 11/07/18 10:14 Lopressor IVP 11/07/18 13:00 2.5 mg NOW PATTI Administration Ondansetron HCl 4 mg 11/03/18 07:34 11/04/18 15:09 Zofran IVP 4 mg Q6H PRN Administration Nausea/Vomiting Polyethylene Glycol 17 gm 11/02/18 09:00 11/07/18 09:05 Miralax PO 17 gm DAILY PATTI Administration Potassium Chloride 20 meq 11/04/18 08:00 11/07/18 09:05 Klor-Con PO 20 meq QAM-WM PATTI Administration Spironolactone 25 mg 11/03/18 09:00 11/07/18 09:05 Aldactone PO 25 mg BID PATTI Administration Thyroid 30 mg 11/07/18 06:00 11/07/18 07:17 [place] Thyroid PO 30 mg MWF@0600 PATTI Administration - Exam General Appearance: NAD Eye: PERRL, anicteric sclera Neck: supple, symmetric, no JVD, no thyromegaly, no lymphadenopathy, no carotid bruit Heart: irregular Respiratory: CTAB (decrease air entry at the basis), no wheezes, no rales, no ronchi, normal chest expansion, no tachypnea, normal percussion Gastrointestinal: soft Extremities: no cyanosis (she developped a bulla on her left foot), 2+ LE edema Hosp A/P (1) Atrial fibrillation and flutter Code(s): I48.91 - UNSPECIFIED ATRIAL FIBRILLATION; I48.92 - UNSPECIFIED ATRIAL FLUTTER Status: Acute (2) CHF (congestive heart failure) Code(s): I50.9 - HEART FAILURE, UNSPECIFIED Status: Chronic Qualifiers: Heart failure type: systolic Heart failure chronicity: acute Qualified Code(s): I50.21 - Acute systolic (congestive) heart failure (3) S/P CABG (coronary artery bypass graft) Code(s): Z95.1 - PRESENCE OF AORTOCORONARY BYPASS GRAFT Status: Chronic (4) DM2 (diabetes mellitus, type 2) Status: Chronic Qualifiers: Diabetes mellitus watermelon harvesting supervisor insulin use: without penitentiary use (5) HTN (hypertension) Code(s): I10 - ESSENTIAL (PRIMARY) HYPERTENSION Status: Chronic Qualifiers: Hypertension type: essential hypertension Qualified Code(s): I10 - Essential (primary) hypertension - Plan Cardiac---new aflutter---in and out of afib frequently---will correct her low magnesium and her low potassium---she is to be started on amio and eliquis as per cardio and CT surgery. Her legs are swollen , venous doppler is neg. she did have an increase in her temperature---cxr showed pleural effusion, but she is afebrile today, will continue to monitor.
[2018-11-07] MEDS: Amiodarone 450 MG, Admixture Fee 1 EACH in Dextrose 5% in Water 250 ML IVPB SCH ×2 (10:36→19:55)
[2018-11-07 10:56] LABS: ALT (SGPT) 16 U/L (8-55); AST (SGOT) 19 U/L (5-34); Albumin 3.6 g/dL (3.4-4.8); Alkaline Phosphatase 55 U/L (40-150); Bilirubin, Direct 0.2 mg/dL (0.1-0.3); Bilirubin, Total 0.4 mg/dL (0.2-1.2); Protein, Total 6.3 g/dL (6.0-8.3)
[2018-11-07] MEDS: HYDROcodone/Acetaminophen 5/325 mg Tablet PO PRN ×3 (14:19→23:23)
--- NOTE | 2018-11-07 15:39 | PRG ---
DATE OF SERVICE: 11/07/2018 SUBJECTIVE: The patient is feeling somewhat better. She does have a blister on top of her foot. This is bothering her. It is currently covered with a bandage. OBJECTIVE: VITAL SIGNS: Temperature is 98.6, pulse 69, respirations 18, O2 saturation 95% on 2 L, blood pressure 107/57. HEENT: Unremarkable. NECK: No adenopathy or JVD. CHEST: Clear. CARDIAC: S1 and S2, regular. ABDOMEN: Soft. EXTREMITIES: Edematous. LABORATORY DATA: White blood cell count 5.7, hematocrit 30, platelet count 460. Sodium 141, potassium 3.5, BUN 38, creatinine 0.8, glucose 132. ASSESSMENT: Status post coronary artery bypass grafting surgery. Doing well from Pulmonary standpoint. PLAN: No new orders at this time. Job ID: [id number]
[2018-11-07] MEDS: Apixaban 5 MG TAB PO SCH (20:50)
[2018-11-07] MEDS: Atorvastatin Calcium 40 MG TAB PO SCH ×2 (20:50→20:52)
[2018-11-07] MEDS: ALPRAZolam 0.25 MG TAB PO PRN (20:53)
[2018-11-07] MEDS: Melatonin 3 MG TAB PO PRN (21:01)
[2018-11-08] MEDS ORDERED: traMADol HCl 50 MG TAB PO SCH (03:00)
[2018-11-08] MEDS ORDERED: diphenhydrAMINE 25 MG CAP PO SCH (03:00)
[2018-11-08] MEDS: Furosemide 40 MG/4 ML VIAL SLOW IVP SCH (05:18)
[2018-11-08] MEDS: Levothyroxine Sodium 112 MCG TAB PO SCH (05:24)
[2018-11-08] MEDS: HYDROcodone/Acetaminophen 5/325 mg Tablet PO PRN ×4 (05:34→22:44)
[2018-11-08 05:38] LABS: Anion Gap 16 mmol/L (10-20); BUN (Urea Nitrogen) 43 mg/dL (9.8-20.1); Calc. Creatinine Clearance 77 mL/min (70-130); Calcium 9.4 mg/dL (7.8-10.44); Carbon Dioxide 32 mmol/L (23-31); Chloride 94 mmol/L (98-107); Estimated GFR-MDRD 38; Glucose 131 mg/dL (80-115); Magnesium 1.7 mg/dL (1.6-2.6); Potassium 3.7 mmol/L (3.5-5.1); Sodium 138 mmol/L (136-145)
--- NOTE | 2018-11-08 09:06 | PRG ---
DATE OF SERVICE: 11/08/2018 SUBJECTIVE: This morning, she is better. She is weak. Denies any shortness of breath. She is walking in the halls, 50 feet at least. OBJECTIVE: VITAL SIGNS: Saturations are 90% on 2 L, temperature 98, pulse 60, respirations 18, and blood pressure 113/62. CHEST: Bilateral crackles. CARDIAC: Normal S1 and S2. No gallops. ABDOMEN: No masses. IMPRESSION: 1. Status post emergency coronary artery bypass grafting. 2. Mild azotemia. 3. Morbid obesity. 4. Sleep apnea. 5. Respiratory failure. 6. Congestive heart failure. PLAN: Pulmonary-reyes, continue aggressive PT, supportive care. She did not want the CPAP, this will be discontinued today. Eventually placement. Job ID: [id number]
[2018-11-08] MEDS: ALPRAZolam 0.25 MG TAB PO PRN (09:32)
[2018-11-08] MEDS: Apixaban 5 MG TAB PO SCH ×2 (09:48→20:39)
[2018-11-08] MEDS: Lisinopril 5 MG TAB PO SCH ×2 (09:49→20:40)
[2018-11-08] MEDS: Famotidine 20 MG TAB PO SCH ×2 (09:49→20:39)
[2018-11-08] MEDS: Aspirin 81 mg Enteric Coated Tablet PO SCH (09:49)
[2018-11-08] MEDS: Spironolactone 25 MG TAB PO SCH ×2 (09:49→20:41)
[2018-11-08] MEDS: Polyethylene Glycol 3350 17 GM Packet PO SCH (09:50)
[2018-11-08] MEDS ORDERED: Magnesium Sulfate 1 GM/2 ML VIAL IM SCH (11:00)
--- NOTE | 2018-11-08 11:01 | PDOC.HOSPP ---
- Subjective Encounter Date: 11/08/18 Subjective: patient feels slightly better today - Objective Vital Signs & Weight: Vital Signs (12 hours) Temp Pulse Resp BP BP BP Pulse Ox 11/08/18 09:49 96 133/62 11/08/18 07:30 98 F 62 18 133/62 98 11/08/18 04:00 98.9 F 56 L 18 105/52 L 99 11/08/18 03:09 98 11/07/18 23:42 97.6 F 63 16 118/53 L 98 Weight Admit Weight 266 lb 8.622 oz Weight 259 lb 8 oz Most Recent Monitor Data Heart Rate from ECG 85 NIBP 153/82 NIBP BP-Mean 105 Respiration from ECG 20 SpO2 98 I&O: 11/07/18 11/08/18 11/09/18 06:59 06:59 06:59 Intake Total 1302.5 1663 Output Total 3310 2650 Balance -2007.5 -987 Result Diagrams: 11/07/18 05:58 11/08/18 04:35 Additional Labs: Accuchecks 11/08/18 11/07/18 11/07/18 05:38 20:47 17:30 POC Glucose 138 H 196 H 118 H Hospitalist ROS - Medication Medications: Active Medications Generic Name Dose Route Start Last Admin Trade Name Freq PRN Reason Stop Dose Admin Hydrocodone Bitart/Acetaminophen 1 tab 11/01/18 12:12 11/05/18 14:27 [place] 5/325 PO 1 tab Q4H PRN Administration Moderate Pain (4-6) Hydrocodone Bitart/Acetaminophen 2 tab 11/01/18 12:12 11/08/18 05:34 [place] 5/325 PO 2 tab Q4H PRN Administration Severe Pain (7-10) Alprazolam 0.25 mg 11/06/18 14:06 11/08/18 09:32 Xanax PO 0.25 mg TIDPRN PRN Administration Anxiety Apixaban 5 mg 11/07/18 21:00 11/08/18 09:48 Eliquis PO 5 mg BID PATTI Administration Aspirin 81 mg 11/07/18 09:00 11/08/18 09:49 Ecotrin PO 81 mg DAILY PATTI Administration Atorvastatin Calcium 40 mg 11/02/18 21:00 11/07/18 20:52 Lipitor PO 40 mg HS PATTI Administration Famotidine 20 mg 11/03/18 09:00 11/08/18 09:49 Pepcid PO 20 mg BID PATTI Administration Guaifenesin/Dextromethorphan 15 ml 11/03/18 07:34 11/05/18 14:38 Robitussin Dm PO 15 ml Q4H PRN Administration Cough Amiodarone HCl 450 mg/ 259 mls @ 0 mls/hr 11/07/18 10:15 11/07/18 19:55 Miscellaneous Medication 1 IVPB 259 mls each/ Dextrose/Water INF PATTI Administration Protocol As Directed Insulin Human Regular 0 units 11/03/18 07:41 11/07/18 21:30 Humulin R SC 4 unit Q4H PRN Administration POST CABG SLIDING SCALE Protocol Levothyroxine Sodium 224 mcg 11/05/18 06:00 11/08/18 05:24 Synthroid PO 224 mcg 0600 PATTI Administration Lisinopril 5 mg 11/03/18 09:00 11/08/18 09:49 Zestril PO 5 mg BID PATTI Administration Melatonin 3 mg 11/03/18 22:36 11/07/18 21:01 Melatonin PO 3 mg HS PRN Administration Insomnia Metoprolol Succinate 50 mg 11/06/18 21:00 11/07/18 20:53 Toprol Xl PO 50 mg QPM PATTI Administration Ondansetron HCl 4 mg 11/03/18 07:34 11/04/18 15:09 Zofran IVP 4 mg Q6H PRN Administration Nausea/Vomiting Polyethylene Glycol 17 gm 11/02/18 09:00 11/08/18 09:50 Miralax PO 17 gm DAILY PATTI Administration Potassium Chloride 20 meq 11/04/18 08:00 11/08/18 09:30 Klor-Con PO 20 meq QAM-WM PATTI Administration Spironolactone 25 mg 11/03/18 09:00 11/08/18 09:49 Aldactone PO 25 mg BID PATTI Administration Thyroid 30 mg 11/07/18 06:00 11/07/18 07:17 [place] Thyroid PO 30 mg MWF@0600 PATTI Administration - Exam General Appearance: NAD, awake alert Eye: PERRL, anicteric sclera ENT: normocephalic atraumatic, no oropharyngeal lesions, moist mucosa Neck: supple, symmetric, no JVD, no thyromegaly, no lymphadenopathy, no carotid bruit Heart: irregular Respiratory: rales Gastrointestinal: soft, non-tender, non-distended, normal bowel sounds, no palpable masses, no hepatomegaly, no splenomegaly, no bruit Extremities: 2+ LE edema Hosp A/P (1) Atrial fibrillation and flutter Code(s): I48.91 - UNSPECIFIED ATRIAL FIBRILLATION; I48.92 - UNSPECIFIED ATRIAL FLUTTER Status: Acute (2) CHF (congestive heart failure) Code(s): I50.9 - HEART FAILURE, UNSPECIFIED Status: Chronic Qualifiers: Heart failure type: systolic Heart failure chronicity: acute Qualified Code(s): I50.21 - Acute systolic (congestive) heart failure (3) S/P CABG (coronary artery bypass graft) Code(s): Z95.1 - PRESENCE OF AORTOCORONARY BYPASS GRAFT Status: Chronic (4) DM2 (diabetes mellitus, type 2) Status: Chronic Qualifiers: Diabetes mellitus intermediate manager insulin use: without halfway use (5) HTN (hypertension) Code(s): I10 - ESSENTIAL (PRIMARY) HYPERTENSION Status: Chronic Qualifiers: Hypertension type: essential hypertension Qualified Code(s): I10 - Essential (primary) hypertension - Plan Cardiac---new aflutter---in and out of afib frequently---will correct her low magnesium and her low potassium---she is to be started on amio and eliquis as per cardio and CT surgery, possibly switching to amio po. Her legs are swollen , venous doppler is neg. she did have an increase in her temperature yesterday ---cxr showed pleural effusion, but she is afebrile today, will continue to monitor. creatinine did increase today ---lasix put on hold
[2018-11-08] MEDS ORDERED: diphenhydrAMINE 50 MG CAP PO PRN (11:14)
[2018-11-08] MEDS ORDERED: Insulin Regular 300 UNITS/3 ML VIAL SC PRN (12:46)
[2018-11-08] MEDS: Melatonin 3 MG TAB PO PRN (22:46)
[2018-11-08] MEDS: Atorvastatin Calcium 40 MG TAB PO SCH (22:47)
[2018-11-09] MEDS: Levothyroxine Sodium 112 MCG TAB PO SCH (05:57)
[2018-11-09] MEDS: HYDROcodone/Acetaminophen 5/325 mg Tablet PO PRN ×3 (05:58→21:07)
[2018-11-09] MEDS: Thyroid 30 MG TAB PO SCH (06:25)
[2018-11-09] MEDS: Lisinopril 5 MG TAB PO SCH ×2 (08:34→21:06)
[2018-11-09] MEDS: Apixaban 5 MG TAB PO SCH ×2 (08:34→21:06)
[2018-11-09] MEDS: Aspirin 81 mg Enteric Coated Tablet PO SCH (08:34)
[2018-11-09] MEDS: Spironolactone 25 MG TAB PO SCH (08:34)
[2018-11-09] MEDS: Polyethylene Glycol 3350 17 GM Packet PO SCH (08:35)
[2018-11-09] MEDS: Famotidine 20 MG TAB PO SCH ×2 (09:06→21:06)
[2018-11-09 09:24] LABS: #Eosinphils 0.3 thou/uL (0.0-0.7); #Lymphocytes 0.7 thou/uL (1.20-3.40); #Monocytes 0.6 thou/uL (0.11-0.59); #Neutrophils 4.6 thou/uL (1.40-6.50); %Basophils 0.6 % (0.0-1.0); %Eosinophils 4.5 % (0.0-10.0); %Lymphocytes 11.8 % (21.0-51.0); %Monocytes 9.6 % (0.0-10.0); %Neutrophils 73.5 % (42.0-75.0); Hemoglobin 9.4 g/dL (12.0-16.0); Mean Corpuscular HGB CONC 33.4 g/dL (32.0-36.0); Mean Corpuscular Hemoglobin 31.7 pg (27.0-31.0); Mean Corpuscular Volume 95.1 fL (78.0-98.0); Mean Platelet Volume 7.2 fL (7.4-10.4); Platelet Count 492 thou/uL (130-400); RBC Distribution Width 14.7 % (11.5-14.5); Red Blood Cell (RBC) Count 2.97 mill/uL (4.20-5.40); White Blood Cell (WBC) Count 6.2 thou/uL (4.8-10.8)
[2018-11-09 09:25] LABS: Anion Gap 16 mmol/L (10-20); BUN (Urea Nitrogen) 51 mg/dL (9.8-20.1); Calc. Creatinine Clearance 58 mL/min (70-130); Calcium 9.1 mg/dL (7.8-10.44); Carbon Dioxide 30 mmol/L (23-31); Chloride 94 mmol/L (98-107); Estimated GFR-MDRD 28; Glucose 150 mg/dL (80-115); Magnesium 1.9 mg/dL (1.6-2.6); Potassium 4.1 mmol/L (3.5-5.1); Sodium 136 mmol/L (136-145)
--- NOTE | 2018-11-09 10:01 | PRG ---
DATE OF SERVICE: SUBJECTIVE: Yari #16 in the hospital, doing much better, walking in the [place]. Less short of breath. OBJECTIVE: VITAL SIGNS: Saturations are 90% on room air, respiratory rate 18, temperature 98, pulse 68, blood pressure 102/68. CHEST: Decreased breath sounds. No wheezing. CARDIAC: Normal S2. No gallops or murmurs. ASSESSMENT: Coronary artery bypass grafting, morbid obesity, sleep apnea, breast cancer, hypertension, hypothyroidism, probably sleep apnea. PLAN: Placement. Outpatient workup for sleep apnea. Otherwise, continue PT, supportive care. We will follow. Job ID: [id number]
--- NOTE | 2018-11-09 14:56 | PDOC.HOSPP ---
- Subjective Encounter Date: 11/09/18 Subjective: reports that her urine is a bit concentrated, otherwise looks cheerful and comfortable. reported by RN that she is needing oxygen only on ambulation - Objective Vital Signs & Weight: Vital Signs (12 hours) Temp Pulse Pulse Pulse Resp BP BP 11/09/18 12:00 98.6 F 71 18 11/09/18 11:40 75 71 132/59 L 116/54 L 11/09/18 09:00 69 114/45 L 11/09/18 08:34 68 11/09/18 07:35 98.6 F 68 18 11/09/18 06:00 97.8 F 65 18 BP Pulse Ox Pulse Ox Pulse Ox 11/09/18 12:00 91/54 L 100 11/09/18 11:40 98 94 L 11/09/18 09:00 89 L 11/09/18 08:34 11/09/18 07:35 102/68 98 11/09/18 06:00 121/58 L 99 Weight Admit Weight 266 lb 8.622 oz Weight 254 lb Most Recent Monitor Data Heart Rate from ECG 85 NIBP 153/82 NIBP BP-Mean 105 Respiration from ECG 20 SpO2 98 I&O: 11/08/18 11/09/18 11/10/18 06:59 06:59 06:59 Intake Total 1663 1700 Output Total 2650 2235 Balance -987 -535 Result Diagrams: 11/09/18 08:50 11/09/18 08:50 Additional Labs: Accuchecks 11/09/18 11/09/18 11/08/18 10:55 05:55 20:36 POC Glucose 147 H 132 H 172 H 11/08/18 16:49 POC Glucose 145 H Hospitalist ROS - Medication Medications: Active Medications Generic Name Dose Route Start Last Admin Trade Name Freq PRN Reason Stop Dose Admin Hydrocodone Bitart/Acetaminophen 1 tab 11/01/18 12:12 11/09/18 05:58 [place] 5/325 PO 1 tab Q4H PRN Administration Moderate Pain (4-6) Hydrocodone Bitart/Acetaminophen 2 tab 11/01/18 12:12 11/09/18 12:07 [place] 5/325 PO 2 tab Q4H PRN Administration Severe Pain (7-10) Alprazolam 0.25 mg 11/06/18 14:06 11/08/18 09:32 Xanax PO 0.25 mg TIDPRN PRN Administration Anxiety Apixaban 5 mg 11/07/18 21:00 11/09/18 08:34 Eliquis PO 5 mg BID PATTI Administration Aspirin 81 mg 11/07/18 09:00 11/09/18 08:34 Ecotrin PO 81 mg DAILY PATTI Administration Atorvastatin Calcium 40 mg 11/02/18 21:00 11/08/18 22:47 Lipitor PO 40 mg HS PATTI Administration Famotidine 20 mg 11/03/18 09:00 11/09/18 09:06 Pepcid PO 20 mg BID PATTI Administration Guaifenesin/Dextromethorphan 15 ml 11/03/18 07:34 11/05/18 14:38 Robitussin Dm PO 15 ml Q4H PRN Administration Cough Levothyroxine Sodium 224 mcg 11/05/18 06:00 11/09/18 05:57 Synthroid PO 224 mcg 0600 PATTI Administration Lisinopril 5 mg 11/03/18 09:00 11/09/18 08:34 Zestril PO 5 mg BID PATTI Administration Melatonin 3 mg 11/03/18 22:36 11/08/18 22:46 Melatonin PO 3 mg HS PRN Administration Insomnia Metoprolol Succinate 50 mg 11/06/18 21:00 11/08/18 20:41 Toprol Xl PO 50 mg QPM PATTI Administration Ondansetron HCl 4 mg 11/03/18 07:34 11/04/18 15:09 Zofran IVP 4 mg Q6H PRN Administration Nausea/Vomiting Polyethylene Glycol 17 gm 11/02/18 09:00 11/09/18 08:35 Miralax PO 17 gm DAILY PATTI Administration Potassium Chloride 20 meq 11/04/18 08:00 11/09/18 08:35 Klor-Con PO 20 meq QAM-WM PATTI Administration Sodium Chloride 10 ml 11/08/18 21:00 11/09/18 08:35 Flush - Normal [place] IVF 10 ml Q12HR PATTI Administration Spironolactone 25 mg 11/03/18 09:00 11/09/18 08:34 Aldactone PO 25 mg BID PATTI Administration Thyroid 30 mg 11/07/18 06:00 11/09/18 06:25 [place] Thyroid PO 30 mg MWF@0600 PATTI Administration - Exam General Appearance: NAD, awake alert Eye: PERRL, anicteric sclera ENT: normocephalic atraumatic, no oropharyngeal lesions, moist mucosa Neck: supple, symmetric, no JVD, no thyromegaly, no lymphadenopathy, no carotid bruit Heart: RRR, no murmur, no gallops, no rubs, normal peripheral pulses Respiratory: CTAB, no wheezes, no rales, no ronchi, normal chest expansion, no tachypnea, normal percussion Extremities: 2+ LE edema Hosp A/P (1) Atrial fibrillation and flutter Code(s): I48.91 - UNSPECIFIED ATRIAL FIBRILLATION; I48.92 - UNSPECIFIED ATRIAL FLUTTER Status: Acute (2) CHF (congestive heart failure) Code(s): I50.9 - HEART FAILURE, UNSPECIFIED Status: Chronic Qualifiers: Heart failure type: systolic Heart failure chronicity: acute Qualified Code(s): I50.21 - Acute systolic (congestive) heart failure (3) S/P CABG (coronary artery bypass graft) Code(s): Z95.1 - PRESENCE OF AORTOCORONARY BYPASS GRAFT Status: Chronic (4) DM2 (diabetes mellitus, type 2) Status: Chronic Qualifiers: Diabetes mellitus chcf insulin use: without chcf use (5) HTN (hypertension) Code(s): I10 - ESSENTIAL (PRIMARY) HYPERTENSION Status: Chronic Qualifiers: Hypertension type: essential hypertension Qualified Code(s): I10 - Essential (primary) hypertension - Plan Cardiac---new aflutter---in and out of afib frequently but now in sinus---she is on eliquis and will ADD amio po. Her legs are swollen , venous doppler is neg. she did have an increase in her temperature 2 DAYS ago ---cxr showed pleural effusion, but she is afebrile today as well, will continue to monitor. creatinine continues to increase today again ---lasix put on hold--I will also hold Spironolactone and recheck lytes in am.
--- NOTE | 2018-11-09 16:16 | PDOC.CPN ---
- Subjective Date: 11/09/18 Time: 16:15 Interval history: Still in/out of AF with RVR - Review of Systems General: denies: fever/chills, weight/appetite/sleep changes, night sweats, fatigue Cardiovascular: reports: palpitation - Objective Allergies/Adverse Reactions: Allergies Allergy/AdvReac Type Severity Reaction Status Date / Time codeine Allergy ITCHING Verified 10/25/18 01:45 Penicillins Allergy ITCHING, Verified 10/25/18 01:45 JOINT PROBLEMS propoxyphene Allergy FACIAL Verified 10/25/18 01:45 [From Darvocet-N] ITCHING tramadol Allergy FACIAL Verified 11/08/18 02:40 ITCHING Visit Medications: Current Medications Hydrocodone Bitart/Acetaminophen ([place] 5/325) 1 tab PO Q4H PRN PRN Reason: Moderate Pain (4-6) Last Admin: 11/09/18 05:58 Dose: 1 tab Hydrocodone Bitart/Acetaminophen ([place] 5/325) 2 tab PO Q4H PRN PRN Reason: Severe Pain (7-10) Last Admin: 11/09/18 12:07 Dose: 2 tab Al Hydroxide/Mg Hydroxide (Maalox) 30 ml PO Q4H PRN PRN Reason: Indigestion Alprazolam (Xanax) 0.25 mg PO TIDPRN PRN PRN Reason: Anxiety Last Admin: 11/08/18 09:32 Dose: 0.25 mg Amiodarone HCl (Cordarone) 400 mg PO DAILY [facility] Apixaban (Eliquis) 5 mg PO BID [facility] Last Admin: 11/09/18 08:34 Dose: 5 mg Aspirin (Ecotrin) 81 mg PO DAILY [facility] Last Admin: 11/09/18 08:34 Dose: 81 mg Atorvastatin Calcium (Lipitor) 40 mg PO HS [facility] Last Admin: 11/08/18 22:47 Dose: 40 mg Bisacodyl (Dulcolax) 10 mg PO Q12H PRN PRN Reason: Constipation Bisacodyl (Dulcolax) 10 mg NE Q12H PRN PRN Reason: Constipation Dextrose/Water (Dextrose 50%) 25 gm SLOW IVP PRN PRN PRN Reason: PER HYPOGLYCEMIC PROTOCOL Famotidine (Pepcid) 20 mg PO BID [facility] Last Admin: 11/09/18 09:06 Dose: 20 mg Glucagon (Glucagon) 1 mg SC PRN PRN PRN Reason: PER HYPOGLYCEMIC PROTOCOL Guaifenesin/Dextromethorphan (Robitussin Dm) 15 ml PO Q4H PRN PRN Reason: Cough Last Admin: 11/05/18 14:38 Dose: 15 ml Dextrose/Water (D5w) 1,000 mls @ 0 mls/hr IV INF PRN PRN Reason: PRN HYPOGLYCEMIC PROTOCOL Insulin Human Regular (Humulin R) 0 units SC .MILD SLIDING PRN; Protocol PRN Reason: MILD SLIDING SCALE Insulin Human Regular (Humulin R) 0 units SC .BEDTIME SLIDING SC PRN; Protocol PRN Reason: BEDTIME SLIDING SCALE Levothyroxine Sodium (Synthroid) 224 mcg PO 0600 [facility] Last Admin: 11/09/18 05:57 Dose: 224 mcg Lisinopril (Zestril) 5 mg PO BID [facility] Last Admin: 11/09/18 08:34 Dose: 5 mg Magnesium Hydroxide (Milk Of Magnesium) 30 ml PO Q12H PRN PRN Reason: Constipation Melatonin (Melatonin) 3 mg PO HS PRN PRN Reason: Insomnia Last Admin: 11/08/18 22:46 Dose: 3 mg Metoprolol Succinate (Toprol Xl) 50 mg PO QPM [facility] Last Admin: 11/08/18 20:41 Dose: 50 mg Mineral Oil (Fleet Mineral Oil) 133 ml [place] DAILYPRN PRN PRN Reason: Constipation Nitroglycerin (Nitrostat) 0.4 mg SL Q5MIN PRN PRN Reason: Chest Pain Ondansetron HCl (Zofran) 4 mg IVP Q6H PRN PRN Reason: Nausea/Vomiting Last Admin: 11/04/18 15:09 Dose: 4 mg Polyethylene Glycol (Miralax) 17 gm PO DAILY [facility] Last Admin: 11/09/18 08:35 Dose: 17 gm Potassium Chloride (Klor-Con) 20 meq PO QAM-WM [facility] Last Admin: 11/09/18 08:35 Dose: 20 meq Sodium Chloride (Flush - Normal Saline) 10 ml IVF Q12HR [facility] Last Admin: 11/09/18 08:35 Dose: 10 ml Sodium Chloride (Flush - Normal Saline) 10 ml IVF PRN PRN PRN Reason: Saline Flush Spironolactone (Aldactone) 25 mg PO BID [facility] Last Admin: 11/09/18 08:34 Dose: 25 mg Thyroid ([place] Thyroid) 30 mg PO MWF@0600 [facility] Last Admin: 11/09/18 06:25 Dose: 30 mg Vital Signs & Weight: Vital Signs Temp Pulse Pulse Pulse Resp BP BP 11/09/18 12:00 98.6 F 71 18 11/09/18 11:40 75 71 132/59 L 116/54 L 11/09/18 09:00 69 114/45 L 11/09/18 08:34 68 11/09/18 07:35 98.6 F 68 18 11/09/18 06:00 97.8 F 65 18 BP Pulse Ox Pulse Ox Pulse Ox 11/09/18 12:00 91/54 L 100 11/09/18 11:40 98 94 L 11/09/18 09:00 89 L 11/09/18 08:34 11/09/18 07:35 102/68 98 11/09/18 06:00 121/58 L 99 Admit Weight 266 lb 8.622 oz Weight 254 lb - Quality Measures Condition: Atrial Fibrillation/Flutter (hx or current), Coronary Artery Disease CV meds: Beta Andrew: Yes, RAMSES/ARB: Yes, Statin: Yes, ASA: Yes, Anticoagulant: Yes (Eliquis) - Physical Exam Cardiac: irregularly regular - Labs Result Diagrams: 11/09/18 08:50 11/09/18 08:50 Troponin/CKMB Troponin I 0.162 ng/mL (< 0.028) H 11/07/18 05:58 - Telemetry Supraventricular conduction: atrial fibrillation - Assessment/Plan Assessment/Plan: 1. Paroxysmal AF 2. CAD s/p CABG 3. Breast CA 4. Ischemic MR Started on po Amio. Will add IV as patient converting in/out of RVR and hopefully d/c tomorrow. On Eliquis.
[2018-11-09] MEDS ORDERED: Amiodarone 450 MG in Dextrose 5% in Water 250 ML IVPB SCH (16:30)
[2018-11-09] MEDS ORDERED: Amiodarone 150 MG in Dextrose 5% in Water 100 ML IVPB SCH (17:45)
[2018-11-09] MEDS: Insulin Regular 300 UNITS/3 ML VIAL SC PRN (18:12)
[2018-11-09 18:26] LABS: ALT (SGPT) 16 U/L (8-55); AST (SGOT) 16 U/L (5-34); Albumin 3.6 g/dL (3.4-4.8); Alkaline Phosphatase 66 U/L (40-150); Bilirubin, Direct 0.2 mg/dL (0.1-0.3); Bilirubin, Total 0.3 mg/dL (0.2-1.2); Protein, Total 6.3 g/dL (6.0-8.3)
[2018-11-09] MEDS: Atorvastatin Calcium 40 MG TAB PO SCH (21:06)
[2018-11-09] MEDS: Melatonin 3 MG TAB PO PRN (21:07)
[2018-11-09] MEDS: ALPRAZolam 0.25 MG TAB PO PRN (21:08)
[2018-11-10] MEDS: HYDROcodone/Acetaminophen 5/325 mg Tablet PO PRN ×4 (00:51→23:59)
[2018-11-10] MEDS ORDERED: Amiodarone In Dextrose 200 ML IVPB SCH (04:00)
[2018-11-10] MEDS: Levothyroxine Sodium 112 MCG TAB PO SCH (04:41)
[2018-11-10] MEDS: Ondansetron PF 4 MG/2 ML Vial IVP PRN (04:45)
[2018-11-10 08:13] LABS: #Eosinphils 0.2 thou/uL (0.0-0.7); #Lymphocytes 0.8 thou/uL (1.20-3.40); #Monocytes 0.5 thou/uL (0.11-0.59); #Neutrophils 2.6 thou/uL (1.40-6.50); %Basophils 0.5 % (0.0-1.0); %Eosinophils 5.6 % (0.0-10.0); %Lymphocytes 19.8 % (21.0-51.0); %Monocytes 12.2 % (0.0-10.0); Mean Corpuscular HGB CONC 33.6 g/dL (32.0-36.0); Mean Corpuscular Hemoglobin 31.7 pg (27.0-31.0); Mean Corpuscular Volume 94.6 fL (78.0-98.0); Mean Platelet Volume 7.1 fL (7.4-10.4); Platelet Count 485 thou/uL (130-400); RBC Distribution Width 14.9 % (11.5-14.5); Red Blood Cell (RBC) Count 2.83 mill/uL (4.20-5.40); White Blood Cell (WBC) Count 4.2 thou/uL (4.8-10.8)
[2018-11-10 08:33] LABS: Anion Gap 15 mmol/L (10-20); BUN (Urea Nitrogen) 49 mg/dL (9.8-20.1); Calc. Creatinine Clearance 65 mL/min (70-130); Calcium 9.1 mg/dL (7.8-10.44); Carbon Dioxide 29 mmol/L (23-31); Chloride 94 mmol/L (98-107); Estimated GFR-MDRD 32; Glucose 135 mg/dL (80-115); Magnesium 1.9 mg/dL (1.6-2.6); Potassium 4.3 mmol/L (3.5-5.1); Sodium 134 mmol/L (136-145)
[2018-11-10] MEDS: Polyethylene Glycol 3350 17 GM Packet PO SCH (08:43)
[2018-11-10] MEDS: Famotidine 20 MG TAB PO SCH ×2 (08:43→20:02)
[2018-11-10] MEDS: Aspirin 81 mg Enteric Coated Tablet PO SCH (08:43)
[2018-11-10] MEDS: Amiodarone 200 MG TAB PO SCH (08:43)
[2018-11-10] MEDS: Apixaban 5 MG TAB PO SCH ×2 (08:43→20:01)
--- NOTE | 2018-11-10 10:29 | PRG ---
DATE OF SERVICE: 11/10/2018 SUBJECTIVE: This morning, she is anxious, but no shortness of breath. OBJECTIVE: VITAL SIGNS: Her O2 saturation did decrease when she ambulated. On room air, it is 96%. Temperature 97, pulse 58, blood pressure 118/63. CHEST: No wheezing or crackles. CARDIAC: Normal S1 and S2. No gallops. ABDOMEN: Soft. LABORATORY DATA: Baseline creatinine is 1.64. IMPRESSION: 1. Status post coronary artery bypass grafting. 2. Supraventricular tachycardia. 3. Morbid obesity. 4. Sleep apnea. 5. Breast cancer. PLAN: She was started on Cordarone yesterday for SVT. Otherwise, continue all other medication, PT, supportive care. We will follow. Job ID: [id number]
--- NOTE | 2018-11-10 11:07 | PRG ---
DATE OF SERVICE: 11/10/2018 SUBJECTIVE: Ms. Nascimento is doing well. No current complaints. She did develop bradycardia on amiodarone. This was discontinued overnight. OBJECTIVE: VITAL SIGNS: Blood pressure 111/60, pulse 58, temperature 97.3. LUNGS: Clear to auscultation. HEART: Regular rate and rhythm. ABDOMEN: Soft, nontender, and nondistended. EXTREMITIES: No edema. IMPRESSION: 1. Severe coronary artery disease. 2. Status post bypass surgery. 3. ? ischemic mitral regurgitation. 4. Atrial fibrillation. RECOMMENDATIONS: Ms. Nascimento did have atrial fibrillation prior to surgery. She also likely has postoperative atrial fibrillation. She will need to be covered with anticoagulation therapy. We will discuss with CV Surgery on timing. Add amiodarone 400 mg one p.o. q.a.m. Job ID: [id number] MTDD
--- NOTE | 2018-11-10 12:03 | PDOC.HOSPP ---
- Subjective Encounter Date: 11/10/18 Subjective: no major complaints - Objective Vital Signs & Weight: Vital Signs (12 hours) Temp Pulse Pulse Pulse Resp BP BP 11/10/18 11:42 98.7 F 66 18 11/10/18 09:50 72 65 100/54 L 104/51 L 11/10/18 09:47 65 72 104/51 L 100/54 L 11/10/18 07:17 97.3 F L 58 L 18 11/10/18 03:45 97.6 F 66 20 BP BP Pulse Ox 11/10/18 11:42 109/51 L 93 L 11/10/18 09:50 11/10/18 09:47 11/10/18 07:17 111/63 100 11/10/18 03:45 99/54 L 98 Weight Admit Weight 266 lb 8.622 oz Weight 254 lb Most Recent Monitor Data Heart Rate from ECG 85 NIBP 153/82 NIBP BP-Mean 105 Respiration from ECG 20 SpO2 98 I&O: 11/09/18 11/10/18 11/11/18 06:59 06:59 06:59 Intake Total 1700 1440 Output Total 2235 1570 Balance -535 -130 Result Diagrams: 11/10/18 08:02 11/10/18 08:03 Additional Labs: Accuchecks 11/10/18 11/09/18 10:53 17:09 POC Glucose 136 H 157 H Hospitalist ROS - Medication Medications: Active Medications Generic Name Dose Route Start Last Admin Trade Name Freq PRN Reason Stop Dose Admin Hydrocodone Bitart/Acetaminophen 1 tab 11/01/18 12:12 11/09/18 05:58 [place] 5/325 PO 1 tab Q4H PRN Administration Moderate Pain (4-6) Hydrocodone Bitart/Acetaminophen 2 tab 11/01/18 12:12 11/10/18 04:41 [place] 5/325 PO 2 tab Q4H PRN Administration Severe Pain (7-10) Alprazolam 0.25 mg 11/06/18 14:06 11/09/18 21:08 Xanax PO 0.25 mg TIDPRN PRN Administration Anxiety Amiodarone HCl 400 mg 11/10/18 09:00 11/10/18 08:43 Cordarone PO 400 mg DAILY [facility] Administration Apixaban 5 mg 11/07/18 21:00 11/10/18 08:43 Eliquis PO 5 mg BID [facility] Administration Aspirin 81 mg 11/07/18 09:00 11/10/18 08:43 Ecotrin PO 81 mg DAILY [facility] Administration Atorvastatin Calcium 40 mg 11/02/18 21:00 11/09/18 21:06 Lipitor PO 40 mg HS [facility] Administration Famotidine 20 mg 11/03/18 09:00 11/10/18 08:43 Pepcid PO 20 mg BID [facility] Administration Guaifenesin/Dextromethorphan 15 ml 11/03/18 07:34 11/05/18 14:38 Robitussin Dm PO 15 ml Q4H PRN Administration Cough Amiodarone HCl/Dextrose 200 mls @ 0 mls/hr 11/10/18 04:00 11/10/18 04:05 Nexterone IVPB 200 mls INF [facility] Administration Protocol Per Protocol Insulin Human Regular 0 units 11/08/18 12:46 11/09/18 18:12 Humulin R SC 2 units .MILD SLIDING PRN Administration MILD SLIDING SCALE Protocol Levothyroxine Sodium 224 mcg 11/05/18 06:00 11/10/18 04:41 Synthroid PO 224 mcg 0600 [facility] Administration Melatonin 3 mg 11/03/18 22:36 11/09/18 21:07 Melatonin PO 3 mg HS PRN Administration Insomnia Metoprolol Succinate 50 mg 11/06/18 21:00 11/09/18 21:07 Toprol Xl PO 50 mg QPM [facility] Administration Ondansetron HCl 4 mg 11/03/18 07:34 11/10/18 04:45 Zofran IVP 4 mg Q6H PRN Administration Nausea/Vomiting Polyethylene Glycol 17 gm 11/02/18 09:00 11/10/18 08:43 Miralax PO 17 gm DAILY [facility] Administration Potassium Chloride 20 meq 11/04/18 08:00 11/10/18 08:43 Klor-Con PO 20 meq QAM-WM [facility] Administration Sodium Chloride 10 ml 11/08/18 21:00 11/10/18 08:44 Flush - Normal Saline IVF 10 ml Q12HR [facility] Administration Spironolactone 25 mg 11/03/18 09:00 11/09/18 08:34 Aldactone PO 25 mg BID [facility] Administration Thyroid 30 mg 11/07/18 06:00 11/09/18 06:25 [place] Thyroid PO 30 mg MWF@0600 [facility] Administration - Exam General Appearance: NAD, awake alert Eye: PERRL, anicteric sclera ENT: normocephalic atraumatic, no oropharyngeal lesions, moist mucosa Neck: supple, symmetric, no JVD, no thyromegaly, no lymphadenopathy, no carotid bruit Heart: RRR, no murmur, no gallops, no rubs, normal peripheral pulses Gastrointestinal: soft, non-tender, non-distended, normal bowel sounds, no palpable masses, no hepatomegaly, no splenomegaly, no bruit Extremities: 2+ LE edema Hosp A/P (1) Atrial fibrillation and flutter Code(s): I48.91 - UNSPECIFIED ATRIAL FIBRILLATION; I48.92 - UNSPECIFIED ATRIAL FLUTTER Status: Acute (2) CHF (congestive heart failure) Code(s): I50.9 - HEART FAILURE, UNSPECIFIED Status: Chronic Qualifiers: Heart failure type: systolic Heart failure chronicity: acute Qualified Code(s): I50.21 - Acute systolic (congestive) heart failure (3) S/P CABG (coronary artery bypass graft) Code(s): Z95.1 - PRESENCE OF AORTOCORONARY BYPASS GRAFT Status: Chronic (4) DM2 (diabetes mellitus, type 2) Status: Chronic Qualifiers: Diabetes mellitus fci insulin use: 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 her BP is on the low side, RAMSES inh was stopped. Her legs are swollen , venous doppler is neg. she did have an increase in her temperature 3 DAYS ago ---cxr showed pleural effusion, but she is afebrile today as well, will continue to monitor. creatinine better but still not to baseline ---lasix put on hold also Spironolactone is on hold will recheck lytes in am.
[2018-11-10] MEDS: Atorvastatin Calcium 40 MG TAB PO SCH (20:01)
[2018-11-11] MEDS: Amiodarone 200 MG TAB PO SCH (02:59)
[2018-11-11] MEDS: Thyroid 30 MG TAB PO SCH (05:57)
[2018-11-11] MEDS: Levothyroxine Sodium 112 MCG TAB PO SCH (05:57)
[2018-11-11 06:28] LABS: #Eosinphils 0.2 thou/uL (0.0-0.7); #Monocytes 0.5 thou/uL (0.11-0.59); #Neutrophils 2.7 thou/uL (1.40-6.50); %Basophils 0.9 % (0.0-1.0); %Eosinophils 4.9 % (0.0-10.0); %Lymphocytes 22.1 % (21.0-51.0); %Monocytes 11.8 % (0.0-10.0); %Neutrophils 60.3 % (42.0-75.0); Hemoglobin 9.4 g/dL (12.0-16.0); Mean Corpuscular HGB CONC 32.7 g/dL (32.0-36.0); Mean Corpuscular Hemoglobin 31.1 pg (27.0-31.0); Mean Corpuscular Volume 95.2 fL (78.0-98.0); Platelet Count 527 thou/uL (130-400); RBC Distribution Width 14.9 % (11.5-14.5); Red Blood Cell (RBC) Count 3.02 mill/uL (4.20-5.40); White Blood Cell (WBC) Count 4.6 thou/uL (4.8-10.8)
[2018-11-11 06:35] LABS: Anion Gap 14 mmol/L (10-20); BUN (Urea Nitrogen) 48 mg/dL (9.8-20.1); Calc. Creatinine Clearance 76 mL/min (70-130); Calcium 9.7 mg/dL (7.8-10.44); Carbon Dioxide 30 mmol/L (23-31); Chloride 97 mmol/L (98-107); Estimated GFR-MDRD 38; Glucose 133 mg/dL (80-115); Potassium 4.7 mmol/L (3.5-5.1); Sodium 136 mmol/L (136-145)
--- NOTE | 2018-11-11 09:03 | PRG ---
DATE OF SERVICE: 11/11/2018 SUBJECTIVE: This morning, she is complaining of palpitation, SVT. She is on amiodarone drip. OBJECTIVE: VITAL SIGNS: Temperature 98, pulse 66, respirations 18, blood pressure 118/51, saturations are 95% on room air. CHEST: No wheezing, crackles. CARDIAC: Normal S1, S2. No gallops. ABDOMEN: No masses. LABORATORY DATA: Creatinine 1.4, BUN 48. White count 4000. IMPRESSION: 1. Recurrent supraventricular tachycardia. 2. Status post coronary artery bypass grafting. 3. Congestive heart failure. 4. Obesity. 5. Breast cancer. PLAN: when switched on oral medication, she can be discharged home. I advised her that she may consider outpatient sleep study. Job ID: [id number] [facility]
[2018-11-11] MEDS: Famotidine 20 MG TAB PO SCH ×2 (09:05→20:15)
[2018-11-11] MEDS: Apixaban 5 MG TAB PO SCH ×2 (09:05→20:14)
[2018-11-11] MEDS: Polyethylene Glycol 3350 17 GM Packet PO SCH (09:05)
[2018-11-11] MEDS: Aspirin 81 mg Enteric Coated Tablet PO SCH (09:05)
[2018-11-11] MEDS: HYDROcodone/Acetaminophen 5/325 mg Tablet PO PRN ×2 (10:02→22:52)
--- NOTE | 2018-11-11 13:31 | PDOC.HOSPP ---
- Subjective Encounter Date: 11/11/18 Subjective: She continues to have episodes of a-flutter. I went in to see her and she was asleep, when I woke her up she felt fult[place] and indeed her monitor showed a-flutter. - Objective Vital Signs & Weight: Vital Signs (12 hours) Temp Pulse Pulse Pulse Resp BP BP 11/11/18 11:29 98.0 F 64 18 11/11/18 11:20 72 64 129/60 124/49 L 11/11/18 07:30 98.1 F 66 18 11/11/18 04:20 97.8 F 75 12 11/11/18 02:13 112 H 18 BP BP Pulse Ox Pulse Ox Pulse Ox 11/11/18 11:29 124/49 L 100 11/11/18 11:20 97 100 11/11/18 07:30 118/51 L 95 11/11/18 04:20 105/45 L 98 11/11/18 02:13 119/56 L 98 Weight Admit Weight 266 lb 8.622 oz Weight 260 lb 12.8 oz Most Recent Monitor Data Heart Rate from ECG 85 NIBP 153/82 NIBP BP-Mean 105 Respiration from ECG 20 SpO2 98 I&O: 11/10/18 11/11/18 11/12/18 06:59 06:59 06:59 Intake Total 1440 1310 Output Total 1570 2060 Balance -130 -750 Result Diagrams: 11/11/18 06:05 11/11/18 06:05 Additional Labs: Accuchecks 11/11/18 11/10/18 10:44 17:17 POC Glucose 138 H 143 H Hospitalist ROS - Medication Medications: Active Medications Generic Name Dose Route Start Last Admin Trade Name Freq PRN Reason Stop Dose Admin Alprazolam 0.25 mg 11/06/18 14:06 11/09/18 21:08 Xanax PO 0.25 mg TIDPRN PRN Administration Anxiety Amiodarone HCl 400 mg 11/10/18 09:00 11/11/18 02:59 Cordarone PO 400 mg DAILY [facility] Administration Apixaban 5 mg 11/07/18 21:00 11/11/18 09:05 Eliquis PO 5 mg BID [facility] Administration Aspirin 81 mg 11/07/18 09:00 11/11/18 09:05 Ecotrin PO 81 mg DAILY [facility] Administration Atorvastatin Calcium 40 mg 11/02/18 21:00 11/10/18 20:01 Lipitor PO 40 mg HS [facility] Administration Famotidine 20 mg 11/03/18 09:00 11/11/18 09:05 Pepcid PO 20 mg BID [facility] Administration Guaifenesin/Dextromethorphan 15 ml 11/03/18 07:34 11/05/18 14:38 Robitussin Dm PO 15 ml Q4H PRN Administration Cough Amiodarone HCl/Dextrose 200 mls @ 0 mls/hr 11/10/18 04:00 11/10/18 04:05 Nexterone IVPB 200 mls INF [facility] Administration Protocol Per Protocol Insulin Human Regular 0 units 11/08/18 12:46 11/09/18 18:12 Humulin R SC 2 units .MILD SLIDING PRN Administration MILD SLIDING SCALE Protocol Levothyroxine Sodium 224 mcg 11/05/18 06:00 11/11/18 05:57 Synthroid PO 224 mcg 0600 [facility] Administration Melatonin 3 mg 11/03/18 22:36 11/09/18 21:07 Melatonin PO 3 mg HS PRN Administration Insomnia Metoprolol Succinate 50 mg 11/06/18 21:00 11/10/18 20:02 Toprol Xl PO 50 mg QPM [facility] Administration Ondansetron HCl 4 mg 11/03/18 07:34 11/10/18 04:45 Zofran IVP 4 mg Q6H PRN Administration Nausea/Vomiting Polyethylene Glycol 17 gm 11/02/18 09:00 11/11/18 09:05 Miralax PO 17 gm DAILY [facility] Administration Potassium Chloride 20 meq 11/04/18 08:00 11/11/18 09:05 Klor-Con PO 20 meq QAM-WM [facility] Administration Sodium Chloride 10 ml 11/08/18 21:00 11/11/18 09:05 Flush - Normal Saline IVF 10 ml Q12HR [facility] Administration Thyroid 30 mg 11/07/18 06:00 11/11/18 05:57 [place] Thyroid PO 30 mg MWF@0600 [facility] Administration - Exam General Appearance: NAD, awake alert Eye: PERRL, anicteric sclera ENT: normocephalic atraumatic, no oropharyngeal lesions, moist mucosa Neck: supple, symmetric, no JVD, no thyromegaly, no lymphadenopathy, no carotid bruit Heart: RRR, no murmur, no gallops, no rubs, normal peripheral pulses Respiratory: CTAB, no wheezes, no rales, no ronchi, normal chest expansion, no tachypnea, normal percussion Gastrointestinal: soft, non-tender, non-distended, normal bowel sounds, no palpable masses, no hepatomegaly, no splenomegaly, no bruit Extremities: 2+ LE edema Hosp A/P (1) Atrial fibrillation and flutter Code(s): I48.91 - UNSPECIFIED ATRIAL FIBRILLATION; I48.92 - UNSPECIFIED ATRIAL FLUTTER Status: Acute (2) CHF (congestive heart failure) Code(s): I50.9 - HEART FAILURE, UNSPECIFIED Status: Chronic Qualifiers: Heart failure type: systolic Heart failure chronicity: acute Qualified Code(s): I50.21 - Acute systolic (congestive) heart failure (3) S/P CABG (coronary artery bypass graft) Code(s): Z95.1 - PRESENCE OF AORTOCORONARY BYPASS GRAFT Status: Chronic (4) DM2 (diabetes mellitus, type 2) Status: Chronic Qualifiers: Diabetes mellitus mcc insulin use: without mcc use (5) HTN (hypertension) Code(s): I10 - ESSENTIAL (PRIMARY) HYPERTENSION Status: Chronic Qualifiers: Hypertension type: essential hypertension Qualified Code(s): I10 - Essential (primary) hypertension - Plan Cardiac---new aflutter---in and out of afib frequently but now in sinus---she is on eliquis and ADDed amio po ---.awaiting further input from Cardiology. her BP is on the low side, RAMSES inh was stopped. Her legs are swollen , venous doppler is neg. she did have an increase in her temperature 3 DAYS ago ---cxr showed pleural effusion, but she is afebrile today as well, will continue to monitor. creatinine better but still not to baseline ---lasix put on hold also Spironolactone is on hold will recheck lytes in am.
[2018-11-11] MEDS ORDERED: Amiodarone 200 MG TAB PO SCH (16:45)
[2018-11-11] MEDS: Atorvastatin Calcium 40 MG TAB PO SCH (20:29)
[2018-11-11] MEDS: ALPRAZolam 0.25 MG TAB PO PRN (22:52)
[2018-11-12] MEDS: Levothyroxine Sodium 112 MCG TAB PO SCH (05:52)
[2018-11-12 07:47] LABS: #Eosinphils 0.2 thou/uL (0.0-0.7); #Monocytes 0.5 thou/uL (0.11-0.59); %Basophils 0.4 % (0.0-1.0); %Eosinophils 4.3 % (0.0-10.0); %Lymphocytes 21.8 % (21.0-51.0); %Monocytes 10.2 % (0.0-10.0); %Neutrophils 63.4 % (42.0-75.0); Hemoglobin 9.4 g/dL (12.0-16.0); Mean Corpuscular HGB CONC 33.3 g/dL (32.0-36.0); Mean Corpuscular Volume 96.1 fL (78.0-98.0); Mean Platelet Volume 6.9 fL (7.4-10.4); Platelet Count 518 thou/uL (130-400); RBC Distribution Width 14.8 % (11.5-14.5); Red Blood Cell (RBC) Count 2.95 mill/uL (4.20-5.40); White Blood Cell (WBC) Count 4.8 thou/uL (4.8-10.8)
[2018-11-12 08:05] LABS: Anion Gap 16 mmol/L (10-20); BUN (Urea Nitrogen) 34 mg/dL (9.8-20.1); Calc. Creatinine Clearance 86 mL/min (70-130); Calcium 9.8 mg/dL (7.8-10.44); Carbon Dioxide 26 mmol/L (23-31); Chloride 101 mmol/L (98-107); Estimated GFR-MDRD 44; Glucose 133 mg/dL (80-115); Magnesium 1.8 mg/dL (1.6-2.6); Potassium 4.3 mmol/L (3.5-5.1); Sodium 139 mmol/L (136-145)
--- NOTE | 2018-11-12 08:23 | PDOC.CPN ---
- Subjective Date: 11/11/18 Time: 16:20 Interval history: AF with RVR overnight again. Patient with symptomatic palpitations. - Review of Systems Cardiovascular: reports: palpitation - Objective Allergies/Adverse Reactions: Allergies Allergy/AdvReac Type Severity Reaction Status Date / Time codeine Allergy ITCHING Verified 10/25/18 01:45 Penicillins Allergy ITCHING, Verified 10/25/18 01:45 JOINT PROBLEMS propoxyphene Allergy FACIAL Verified 10/25/18 01:45 [facility] ITCHING tramadol Allergy FACIAL Verified 11/08/18 02:40 ITCHING Visit Medications: Current Medications Hydrocodone Bitart/Acetaminophen ([place] 5/325) 1 tab PO Q4H PRN PRN Reason: Pain Last Admin: 11/11/18 22:52 Dose: 1 tab Al Hydroxide/Mg Hydroxide (Maalox) 30 ml PO Q4H PRN PRN Reason: Indigestion Alprazolam (Xanax) 0.25 mg PO TIDPRN PRN PRN Reason: Anxiety Last Admin: 11/11/18 22:52 Dose: 0.25 mg Amiodarone HCl (Cordarone) 400 mg PO BID [facility] Apixaban (Eliquis) 5 mg PO BID [facility] Last Admin: 11/11/18 20:14 Dose: 5 mg Aspirin (Ecotrin) 81 mg PO DAILY [facility] Last Admin: 11/11/18 09:05 Dose: 81 mg Atorvastatin Calcium (Lipitor) 40 mg PO HS [facility] Last Admin: 11/11/18 20:29 Dose: 40 mg Bisacodyl (Dulcolax) 10 mg PO Q12H PRN PRN Reason: Constipation Bisacodyl (Dulcolax) 10 mg [place] Q12H PRN PRN Reason: Constipation Dextrose/Water (Dextrose 50%) 25 gm SLOW IVP PRN PRN PRN Reason: PER HYPOGLYCEMIC PROTOCOL Famotidine (Pepcid) 20 mg PO BID [facility] Last Admin: 11/11/18 20:15 Dose: 20 mg Glucagon (Glucagon) 1 mg SC PRN PRN PRN Reason: PER HYPOGLYCEMIC PROTOCOL Guaifenesin/Dextromethorphan (Robitussin Dm) 15 ml PO Q4H PRN PRN Reason: Cough Last Admin: 11/05/18 14:38 Dose: 15 ml Dextrose/Water (D5w) 1,000 mls @ 0 mls/hr IV INF PRN PRN Reason: PRN HYPOGLYCEMIC PROTOCOL Amiodarone HCl/Dextrose (Nexterone) 200 mls @ 0 mls/hr IVPB INF [facility]; Protocol Last Admin: 11/10/18 04:05 Dose: 200 mls Insulin Human Regular (Humulin R) 0 units SC .MILD SLIDING PRN; Protocol PRN Reason: MILD SLIDING SCALE Last Admin: 11/09/18 18:12 Dose: 2 units Insulin Human Regular (Humulin R) 0 units SC .BEDTIME SLIDING SC PRN; Protocol PRN Reason: BEDTIME SLIDING SCALE Levothyroxine Sodium (Synthroid) 224 mcg PO 0600 [facility] Last Admin: 11/12/18 05:52 Dose: 224 mcg Magnesium Hydroxide (Milk Of Magnesium) 30 ml PO Q12H PRN PRN Reason: Constipation Melatonin (Melatonin) 3 mg PO HS PRN PRN Reason: Insomnia Last Admin: 11/09/18 21:07 Dose: 3 mg Metoprolol Succinate (Toprol Xl) 50 mg PO QPM [facility] Last Admin: 11/11/18 20:16 Dose: 50 mg Mineral Oil (Fleet Mineral Oil) 133 ml [place] DAILYPRN PRN PRN Reason: Constipation Nitroglycerin (Nitrostat) 0.4 mg SL Q5MIN PRN PRN Reason: Chest Pain Ondansetron HCl (Zofran) 4 mg IVP Q6H PRN PRN Reason: Nausea/Vomiting Last Admin: 11/10/18 04:45 Dose: 4 mg Polyethylene Glycol (Miralax) 17 gm PO DAILY [facility] Last Admin: 11/11/18 09:05 Dose: 17 gm Potassium Chloride (Klor-Con) 20 meq PO QAM-WM [facility] Last Admin: 11/11/18 09:05 Dose: 20 meq Sodium Chloride (Flush - Normal Saline) 10 ml IVF Q12HR [facility] Last Admin: 11/11/18 20:16 Dose: 10 ml Sodium Chloride (Flush - Normal Saline) 10 ml IVF PRN PRN PRN Reason: Saline Flush Thyroid ([place] Thyroid) 30 mg PO MWF@0600 [facility] Last Admin: 11/11/18 05:57 Dose: 30 mg Vital Signs & Weight: Vital Signs Temp Pulse Resp BP BP Pulse Ox 11/12/18 07:30 97.8 F 97 16 92/61 98 11/12/18 03:56 98.0 F 65 18 134/67 100 11/12/18 00:00 69 114/49 L Admit Weight 266 lb 8.622 oz Weight 255 lb - Quality Measures Condition: Atrial Fibrillation/Flutter (hx or current), Coronary Artery Disease CV meds: Beta Andrew: Yes, RAMSES/ARB: Yes, Statin: Yes, ASA: Yes, Anticoagulant: Yes (Eliquis) - Physical Exam Cardiac: irregularly regular, tachycardia - Labs Result Diagrams: 11/12/18 07:38 11/12/18 07:38 Troponin/CKMB Troponin I 0.162 ng/mL (< 0.028) H 11/07/18 05:58 - Telemetry Supraventricular conduction: atrial fibrillation - Assessment/Plan Assessment/Plan: 1. Paroxysmal AF 2. CAD s/p CABG 3. Breast CA 4. Ischemic MR Patient had significant rocio on IV Amio. Held. Amio was initially written BID, but then after rocio changed to QD. Now with breakthrough RVR again as patient has only received 2 doses total in the last 48 hours. Will increase back to BID.
[2018-11-12] MEDS: Amiodarone 200 MG TAB PO SCH ×2 (08:31→20:22)
[2018-11-12] MEDS: Apixaban 5 MG TAB PO SCH ×2 (08:31→20:25)
[2018-11-12] MEDS: Famotidine 20 MG TAB PO SCH ×2 (08:31→20:25)
[2018-11-12] MEDS: Aspirin 81 mg Enteric Coated Tablet PO SCH (08:31)
[2018-11-12] MEDS: Polyethylene Glycol 3350 17 GM Packet PO SCH (08:34)
[2018-11-12] MEDS: Insulin Regular 300 UNITS/3 ML VIAL SC PRN ×2 (08:50→13:05)
[2018-11-12] MEDS: ALPRAZolam 0.25 MG TAB PO PRN ×2 (08:50→20:24)
[2018-11-12] MEDS ORDERED: Amiodarone 200 MG TAB PO SCH (09:00)
--- NOTE | 2018-11-12 12:30 | PRG ---
DATE OF SERVICE: 11/12/2018 SUBJECTIVE: She is discouraged that she is still having problems with cardiac arrhythmias. OBJECTIVE: VITAL SIGNS: Temperature 98.1, pulse 73, respirations 17, O2 saturation 100% on room air, and blood pressure 132/58. HEENT: Unremarkable. NECK: No adenopathy or JVD. CHEST: Clear without wheezing or rhonchi. CARDIAC: S1 and S2. Regular. ABDOMEN: Soft. EXTREMITIES: No edema. ASSESSMENT: 1. Recurrent supraventricular tachycardia. 2. Status post coronary artery bypass grafting surgery. 3. Congestive heart failure. PLAN: Continue current care. Pulmonary status stable. Job ID: [id number]
[2018-11-12] MEDS ORDERED: Furosemide 40 MG/4 ML VIAL SLOW IVP SCH (12:45)
[2018-11-12] MEDS: Guaifenesin DM 100-10/5 ML UDCUP PO PRN ×2 (15:53→20:51)
--- NOTE | 2018-11-12 18:43 | PDOC.HOSPP ---
- Subjective Encounter Date: 11/12/18 Encounter Time: 12:00 Subjective: Ms. Nascimento was seen today in follow-up of post CABG and atrial flutter. She notes some dyspnea on exertion, and swelling in her legs, otherwise ok. - Objective Vital Signs & Weight: Vital Signs (12 hours) Temp Pulse Pulse Pulse Resp BP BP 11/12/18 15:45 98.5 F 84 18 11/12/18 15:07 121 H 123 H 128/96 H 155/68 H 11/12/18 11:25 98.1 F 73 17 11/12/18 09:23 83 83 134/59 L 118/56 L 11/12/18 07:30 97.8 F 97 16 BP Pulse Ox 11/12/18 15:45 128/60 97 11/12/18 15:07 11/12/18 11:25 132/58 L 100 11/12/18 09:23 11/12/18 07:30 92/61 98 Weight Admit Weight 266 lb 8.622 oz Weight 255 lb Most Recent Monitor Data Heart Rate from ECG 85 NIBP 153/82 NIBP BP-Mean 105 Respiration from ECG 20 SpO2 98 I&O: 11/11/18 11/12/18 11/13/18 06:59 06:59 06:59 Intake Total 1310 780 800 Output Total 2060 1900 1200 Balance -750 -1120 -400 Result Diagrams: 11/12/18 07:38 11/12/18 07:38 Additional Labs: Accuchecks 11/12/18 11/12/18 16:35 05:33 POC Glucose 131 H 153 H Hospitalist ROS - Medication Medications: Active Medications Generic Name Dose Route Start Last Admin Trade Name Freq PRN Reason Stop Dose Admin Hydrocodone Bitart/Acetaminophen 1 tab 11/11/18 15:01 11/11/18 22:52 [place] 5/325 PO 1 tab Q4H PRN Administration Pain Alprazolam 0.25 mg 11/06/18 14:06 11/12/18 08:50 Xanax PO 0.25 mg TIDPRN PRN Administration Anxiety Amiodarone HCl 400 mg 11/12/18 09:00 11/12/18 08:31 Cordarone PO 400 mg BID PATTI Administration Apixaban 5 mg 11/07/18 21:00 09/07/19 08:31 Eliquis PO 5 mg BID PATTI Administration Aspirin 81 mg 11/07/18 09:00 11/12/18 08:31 Ecotrin PO 81 mg DAILY PATTI Administration Atorvastatin Calcium 40 mg 11/11/18 21:00 11/11/18 20:29 Lipitor PO 40 mg HS PATTI Administration Famotidine 20 mg 11/03/18 09:00 11/12/18 08:31 Pepcid PO 20 mg BID PATTI Administration Guaifenesin/Dextromethorphan 15 ml 11/03/18 07:34 11/12/18 15:53 Robitussin Dm PO 15 ml Q4H PRN Administration Cough Amiodarone HCl/Dextrose 200 mls @ 0 mls/hr 11/10/18 04:00 11/10/18 04:05 Nexterone IVPB 200 mls INF PATTI Administration Protocol Per Protocol Insulin Human Regular 0 units 11/08/18 12:46 11/12/18 13:05 Humulin R SC 2 units .MILD SLIDING PRN Administration MILD SLIDING SCALE Protocol Levothyroxine Sodium 224 mcg 11/05/18 06:00 11/12/18 05:52 Synthroid PO 224 mcg 0600 PATTI Administration Melatonin 3 mg 11/03/18 22:36 11/09/18 21:07 Melatonin PO 3 mg HS PRN Administration Insomnia Metoprolol Succinate 50 mg 11/06/18 21:00 11/11/18 20:16 Toprol Xl PO 50 mg QPM PATTI Administration Ondansetron HCl 4 mg 11/03/18 07:34 11/10/18 04:45 Zofran IVP 4 mg Q6H PRN Administration Nausea/Vomiting Polyethylene Glycol 17 gm 11/02/18 09:00 11/12/18 08:34 Miralax PO Not Given DAILY PATTI Potassium Chloride 20 meq 11/04/18 08:00 11/12/18 08:30 Klor-Con PO 20 meq QAM-WM PATTI Administration Sodium Chloride 10 ml 11/08/18 21:00 11/12/18 08:34 Flush - Normal Saline IVF 10 ml Q12HR PATTI Administration Thyroid 30 mg 11/07/18 06:00 11/11/18 05:57 [place] Thyroid PO 30 mg MWF@0600 PATTI Administration - Exam Eye: PERRL, anicteric sclera Heart: RRR, no murmur, no gallops, no rubs, normal peripheral pulses Respiratory: CTAB, no wheezes, no rales, no ronchi, normal chest expansion Gastrointestinal: soft, non-tender, non-distended, normal bowel sounds, no palpable masses, no hepatomegaly, no splenomegaly, no bruit Extremities: no cyanosis, 2+ LE edema Hosp A/P (1) Atrial fibrillation and flutter Code(s): I48.91 - UNSPECIFIED ATRIAL FIBRILLATION; I48.92 - UNSPECIFIED ATRIAL FLUTTER Status: Acute (2) CAD (coronary artery disease) Code(s): I25.10 - ATHSCL HEART DISEASE OF [place] CORONARY ARTERY W/O ANG PCTRS Status: Acute Qualifiers: Coronary Disease-Associated Artery/Lesion type: [place] artery [place] vs. transplanted heart: [place] heart Associated angina: without angina Qualified Code(s): I25.10 - Atherosclerotic heart disease of [place] coronary artery without angina pectoris (3) Breast cancer Status: Chronic Qualifiers: Patient sex: female (4) Chronic anemia Code(s): D64.9 - ANEMIA, UNSPECIFIED Status: Chronic (5) HTN (hypertension) Code(s): I10 - ESSENTIAL (PRIMARY) HYPERTENSION Status: Chronic Qualifiers: Hypertension type: essential hypertension Qualified Code(s): I10 - Essential (primary) hypertension (6) S/P CABG (coronary artery bypass graft) Code(s): Z95.1 - PRESENCE OF AORTOCORONARY BYPASS GRAFT Status: Chronic (7) Yxvxb-[id number]-rzoybuz kidney injury Code(s): N17.9 - ACUTE KIDNEY FAILURE, UNSPECIFIED; N18.9 - CHRONIC KIDNEY DISEASE, UNSPECIFIED Status: Acute - Plan * Ms. Nascimento is a patient with breast cancer, admitted with ACS, and now s/p CABGX3. She has developed AFIB and AFlutter post procedure * Continue Amiodarone- she is now in sinus ( she had been in AFIB/afutter last night and again this am * Mild CHF exacerbation- due to holding of diuretics- agree with giving a dose of Lasix, now that her renal function has stabilized * Acute kidney injury- improved * Breast Cancer- stable- radiation is on hold due to recent CABG
[2018-11-12] MEDS: Doxycycline 100 MG CAP PO SCH (20:23)
[2018-11-12] MEDS: Atorvastatin Calcium 40 MG TAB PO SCH (20:24)
[2018-11-12] MEDS: HYDROcodone/Acetaminophen 5/325 mg Tablet PO PRN (20:25)
[2018-11-12] MEDS: Ondansetron PF 4 MG/2 ML Vial IVP PRN (20:37)
[2018-11-12] MEDS ORDERED: diphenhydrAMINE 25 MG CAP PO SCH (22:45)
[2018-11-12] MEDS: Benzonatate 100 MG CAP PO PRN (22:59)
[2018-11-12] MEDS: Acetaminophen 325 MG TAB PO PRN (22:59)
[2018-11-13] MEDS: Guaifenesin DM 100-10/5 ML UDCUP PO PRN (03:10)
[2018-11-13] MEDS: Benzonatate 100 MG CAP PO PRN ×2 (05:46→23:57)
[2018-11-13] MEDS: Levothyroxine Sodium 112 MCG TAB PO SCH (05:46)
[2018-11-13] MEDS: HYDROcodone/Acetaminophen 5/325 mg Tablet PO PRN ×3 (05:50→23:54)
[2018-11-13 06:35] LABS: Anion Gap 16 mmol/L (10-20); BUN (Urea Nitrogen) 31 mg/dL (9.8-20.1); Calc. Creatinine Clearance 88 mL/min (70-130); Calcium 9.6 mg/dL (7.8-10.44); Carbon Dioxide 25 mmol/L (23-31); Chloride 100 mmol/L (98-107); Estimated GFR-MDRD 45; Glucose 135 mg/dL (80-115); Potassium 4.1 mmol/L (3.5-5.1); Sodium 137 mmol/L (136-145)
[2018-11-13] MEDS: Apixaban 5 MG TAB PO SCH ×2 (08:13→21:07)
[2018-11-13] MEDS: Aspirin 81 mg Enteric Coated Tablet PO SCH (08:13)
[2018-11-13] MEDS: Amiodarone 200 MG TAB PO SCH ×2 (08:13→21:07)
[2018-11-13] MEDS: Doxycycline 100 MG CAP PO SCH ×2 (08:14→21:10)
[2018-11-13] MEDS: Polyethylene Glycol 3350 17 GM Packet PO SCH (08:14)
[2018-11-13] MEDS: Acetaminophen 325 MG TAB PO PRN (08:14)
[2018-11-13] MEDS: Famotidine 20 MG TAB PO SCH ×2 (08:14→21:07)
[2018-11-13] MEDS ORDERED: Furosemide 40 MG/4 ML VIAL SLOW IVP SCH (10:45)
[2018-11-13] MEDS: Insulin Regular 300 UNITS/3 ML VIAL SC PRN (11:17)
--- NOTE | 2018-11-13 13:50 | PDOC.HOSPP ---
- Subjective Encounter Date: 11/13/18 Encounter Time: 13:00 Subjective: Ms. Nascimento was seen today in follow-up of CAD post CABG. She has been up to walk with PT today. She continues to note some lower extremity edema. - Objective Vital Signs & Weight: Vital Signs (12 hours) Temp Pulse Pulse Pulse Resp BP BP 11/13/18 11:30 97.9 F 62 18 11/13/18 08:56 75 62 131/60 132/58 L 11/13/18 07:43 97.7 F 64 17 11/13/18 03:05 97.9 F 84 20 BP BP Pulse Ox 11/13/18 11:30 127/62 99 11/13/18 08:56 11/13/18 07:43 120/53 L 100 11/13/18 03:05 121/58 L 99 Weight Admit Weight 266 lb 8.622 oz Weight 255 lb 12.8 oz Most Recent Monitor Data Heart Rate from ECG 85 NIBP 153/82 NIBP BP-Mean 105 Respiration from ECG 20 SpO2 98 I&O: 11/12/18 11/13/18 11/14/18 06:59 06:59 06:59 Intake Total 780 1560 Output Total 1900 1999 Balance -1120 440 Result Diagrams: 11/12/18 07:38 11/13/18 05:50 Additional Labs: Accuchecks 11/13/18 11/12/18 11/12/18 05:29 20:37 16:35 POC Glucose 142 H 122 H 131 H 11/12/18 11/11/18 11/11/18 10:38 20:28 05:25 POC Glucose 170 H 137 H 141 H 11/10/18 11/10/18 11/09/18 20:37 05:46 20:23 POC Glucose 120 H 155 H 157 H Hospitalist ROS - Medication Medications: Active Medications Generic Name Dose Route Start Last Admin Trade Name Freq PRN Reason Stop Dose Admin Acetaminophen 650 mg 11/12/18 22:43 11/13/18 08:14 Tylenol PO 650 mg Q4H PRN Administration Fever/Mild Pain Hydrocodone Bitart/Acetaminophen 1 tab 11/11/18 15:01 11/13/18 10:11 [place] 5/325 PO 1 tab Q4H PRN Administration Pain Alprazolam 0.25 mg 11/06/18 14:06 11/12/18 20:24 Xanax PO 0.25 mg TIDPRN PRN Administration Anxiety Amiodarone HCl 400 mg 11/12/18 09:00 11/13/18 08:13 Cordarone PO 400 mg BID PATTI Administration Apixaban 5 mg 11/07/18 21:00 11/13/18 08:13 Eliquis PO 5 mg BID PATTI Administration Aspirin 81 mg 11/07/18 09:00 11/13/18 08:13 Ecotrin PO 81 mg DAILY PATTI Administration Atorvastatin Calcium 40 mg 11/11/18 21:00 11/12/18 20:24 Lipitor PO 40 mg HS PATTI Administration Benzonatate 100 mg 11/12/18 22:43 11/13/18 05:46 Tessalon PO 100 mg TIDPRN PRN Administration Cough Doxycycline Hyclate 100 mg 11/12/18 21:00 11/13/18 08:14 Vibramycin PO 100 mg BID PATTI Administration Famotidine 20 mg 11/03/18 09:00 11/13/18 08:14 Pepcid PO 20 mg BID PATTI Administration Guaifenesin/Dextromethorphan 15 ml 11/03/18 07:34 11/13/18 03:10 Robitussin Dm PO 15 ml Q4H PRN Administration Cough Amiodarone HCl/Dextrose 200 mls @ 0 mls/hr 11/10/18 04:00 11/10/18 04:05 Nexterone IVPB 200 mls INF PATTI Administration Protocol Per Protocol Insulin Human Regular 0 units 11/08/18 12:46 11/13/18 11:17 Humulin R SC 2 units .MILD SLIDING PRN Administration MILD SLIDING SCALE Protocol Levothyroxine Sodium 224 mcg 11/05/18 06:00 11/13/18 05:46 Synthroid PO 224 mcg 0600 PATTI Administration Melatonin 3 mg 11/03/18 22:36 11/09/18 21:07 Melatonin PO 3 mg HS PRN Administration Insomnia Metoprolol Succinate 50 mg 11/06/18 21:00 11/12/18 20:24 Toprol Xl PO 50 mg QPM PATTI Administration Ondansetron HCl 4 mg 11/03/18 07:34 11/12/18 20:37 Zofran IVP 4 mg Q6H PRN Administration Nausea/Vomiting Polyethylene Glycol 17 gm 11/02/18 09:00 11/13/18 08:14 Miralax PO 17 gm DAILY PATTI Administration Potassium Chloride 20 meq 11/04/18 08:00 11/13/18 08:13 Klor-Con PO 20 meq QAM-WM PATTI Administration Sodium Chloride 10 ml 11/08/18 21:00 11/13/18 08:14 Flush - Normal Saline IVF 10 ml Q12HR PATTI Administration Thyroid 30 mg 11/07/18 06:00 11/11/18 05:57 [place] Thyroid PO 30 mg MWF@0600 PATTI Administration - Exam Eye: PERRL, anicteric sclera Heart: RRR, no murmur, no gallops, no rubs, normal peripheral pulses Respiratory: CTAB, no wheezes, no rales, no ronchi, normal chest expansion, no tachypnea Gastrointestinal: soft, non-tender, non-distended, normal bowel sounds, no palpable masses, no hepatomegaly Extremities: 2+ LE edema (pitting edema in both lower extremities) Hosp A/P (1) Atrial fibrillation and flutter Code(s): I48.91 - UNSPECIFIED ATRIAL FIBRILLATION; I48.92 - UNSPECIFIED ATRIAL FLUTTER Status: Acute (2) CAD (coronary artery disease) Code(s): I25.10 - ATHSCL HEART DISEASE OF [place] CORONARY ARTERY W/O ANG PCTRS Status: Acute Qualifiers: Coronary Disease-Associated Artery/Lesion type: [place] artery [place] vs. transplanted heart: [place] heart Associated angina: without angina Qualified Code(s): I25.10 - Atherosclerotic heart disease of [place] coronary artery without angina pectoris (3) Breast cancer Status: Chronic Qualifiers: Patient sex: female (4) Chronic anemia Code(s): D64.9 - ANEMIA, UNSPECIFIED Status: Chronic (5) HTN (hypertension) Code(s): I10 - ESSENTIAL (PRIMARY) HYPERTENSION Status: Chronic Qualifiers: Hypertension type: essential hypertension Qualified Code(s): I10 - Essential (primary) hypertension (6) S/P CABG (coronary artery bypass graft) Code(s): Z95.1 - PRESENCE OF AORTOCORONARY BYPASS GRAFT Status: Chronic (7) [id number] kidney injury Code(s): N17.9 - ACUTE KIDNEY FAILURE, UNSPECIFIED; N18.9 - CHRONIC KIDNEY DISEASE, UNSPECIFIED Status: Acute - Plan * CAD s/p CABG- continue PT/OT- hemodynamically stable * Continue Amiodarone- she is now in sinus ( she had been in AFIB/afutter last night and again this am * Mild CHF exacerbation- Lasix PRN * Acute kidney injury- improved * Breast Cancer- stable- radiation is on hold due to recent CABG * Deconditioning- await Rehab screen
--- NOTE | 2018-11-13 15:13 | PRG ---
DATE OF SERVICE: 11/13/2018 SUBJECTIVE: The patient is up in a chair, doing well. No complaints. OBJECTIVE: VITAL SIGNS: On exam, temperature is 97.9, pulse 60, respirations 18, O2 saturation 99% on room air, and blood pressure 127/62. HEENT: Unremarkable. NECK: No JVD. CHEST: Clear to auscultation. CARDIAC: S1 and S2. Regular. ABDOMEN: Soft. EXTREMITIES: 3+ edema from the knees downward. LABORATORY DATA: Sodium 137, potassium 4.1, BUN 31, creatinine 1.2, and glucose 135. ASSESSMENT: 1. Status post coronary artery bypass grafting surgery. 2. Supraventricular tachycardia. 3. Congestive heart failure. PLAN: Continuing current care and diuresis. Job ID: [id number]
[2018-11-13] MEDS: Hydrocortisone Acetate 25 MG Suppository PR PRN (21:06)
[2018-11-13] MEDS: Atorvastatin Calcium 40 MG TAB PO SCH (21:07)
[2018-11-13] MEDS: ALPRAZolam 0.25 MG TAB PO PRN (21:08)
[2018-11-13] MEDS: Melatonin 3 MG TAB PO PRN (21:08)
[2018-11-13] MEDS: Bisacodyl 5 MG TAB PO PRN (23:54)
[2018-11-14] MEDS: Thyroid 30 MG TAB PO SCH (05:06)
[2018-11-14] MEDS: Levothyroxine Sodium 112 MCG TAB PO SCH (05:06)
[2018-11-14] MEDS: Hydrocortisone Acetate 25 MG Suppository PR PRN ×2 (05:49→22:03)
[2018-11-14] MEDS: Benzonatate 100 MG CAP PO PRN (05:49)
[2018-11-14 05:56] LABS: Anion Gap 15 mmol/L (10-20); BUN (Urea Nitrogen) 28 mg/dL (9.8-20.1); Calc. Creatinine Clearance 91 mL/min (70-130); Calcium 9.5 mg/dL (7.8-10.44); Carbon Dioxide 25 mmol/L (23-31); Chloride 100 mmol/L (98-107); Estimated GFR-MDRD 46; Glucose 119 mg/dL (80-115); Potassium 4.1 mmol/L (3.5-5.1); Sodium 136 mmol/L (136-145)
[2018-11-14] MEDS: HYDROcodone/Acetaminophen 5/325 mg Tablet PO PRN ×3 (08:03→21:56)
[2018-11-14] MEDS: Doxycycline 100 MG CAP PO SCH ×2 (08:03→21:55)
[2018-11-14] MEDS: Aspirin 81 mg Enteric Coated Tablet PO SCH (08:03)
[2018-11-14] MEDS: Apixaban 5 MG TAB PO SCH ×2 (08:05→21:56)
[2018-11-14] MEDS: Polyethylene Glycol 3350 17 GM Packet PO SCH (08:05)
[2018-11-14] MEDS: Famotidine 20 MG TAB PO SCH ×2 (08:05→22:00)
[2018-11-14] MEDS: Amiodarone 200 MG TAB PO SCH ×2 (08:05→21:55)
--- NOTE | 2018-11-14 09:30 | PRG ---
DATE OF SERVICE: 11/14/2018 SUBJECTIVE: Yari Nascimento this morning is awake, alert, and responsive. She has been complaining of chest pain right in the middle of the incision, but there is no drainage. OBJECTIVE: VITAL SIGNS: Temperature 97, pulse 70, respirations 18, saturations 100% on room air, blood pressure 133/64. CHEST: No wheezing or crackle. CARDIAC: Normal S1 and S2. No gallops. ABDOMEN: No mass. LABORATORY DATA: Creatinine 1.18. ASSESSMENT: Coronary artery bypass graft, status post supraventricular tachycardia, congestive heart failure, severe deconditioning, sleep apnea, breast cancer. PLAN: Awaiting disposition. Continue supportive care, PT. We will follow. Job ID: [id number]
--- NOTE | 2018-11-14 10:36 | PDOC.HOSPP ---
- Subjective Encounter Date: 11/14/18 Encounter Time: 09:00 Subjective: Ms. Nascimento was seen today in follow-up of CAD post CABG. She is complaining of pain across her chest, which started yesterday around 2pm. She is concerned that it is around her incision. She notes that there is now skin breakdown, and believes it is due to her large breast pulling. She is also becoming frustrated with being in the hospital for such a long time, and is concerned she is not making adequate progress. - Objective Vital Signs & Weight: Vital Signs (12 hours) Temp Pulse Resp BP Pulse Ox 11/14/18 07:55 97.6 F 70 18 133/64 100 11/14/18 04:00 97.5 F L 63 16 123/51 L 100 Weight Admit Weight 266 lb 8.622 oz Weight 255 lb 12.8 oz Most Recent Monitor Data Heart Rate from ECG 85 NIBP 153/82 NIBP BP-Mean 105 Respiration from ECG 20 SpO2 98 I&O: 11/13/18 11/14/18 11/15/18 06:59 06:59 06:59 Intake Total 1560 1780 Output Total 1999 1750 Balance -440 30 Result Diagrams: 11/12/18 07:38 11/14/18 05:13 Additional Labs: Accuchecks 11/14/18 11/13/18 11/13/18 05:22 20:25 16:45 POC Glucose 116 H 108 114 H 11/13/18 11:06 POC Glucose 169 H Hospitalist ROS - Medication Medications: Active Medications Generic Name Dose Route Start Last Admin Trade Name Freq PRN Reason Stop Dose Admin Acetaminophen 650 mg 11/12/18 22:43 11/13/18 08:14 Tylenol PO 650 mg Q4H PRN Administration Fever/Mild Pain Hydrocodone Bitart/Acetaminophen 1 tab 11/11/18 15:01 11/14/18 08:03 [place] 5/325 PO 1 tab Q4H PRN Administration Pain Alprazolam 0.25 mg 11/06/18 14:06 11/13/18 21:08 Xanax PO 0.25 mg TIDPRN PRN Administration Anxiety Amiodarone HCl 400 mg 11/12/18 09:00 11/14/18 08:05 Cordarone PO 400 mg BID PATTI Administration Apixaban 5 mg 11/07/18 21:00 11/14/18 08:05 Eliquis PO 5 mg BID PATTI Administration Aspirin 81 mg 11/07/18 09:00 11/14/18 08:03 Ecotrin PO 81 mg DAILY PATTI Administration Atorvastatin Calcium 40 mg 11/11/18 21:00 11/13/18 21:07 Lipitor PO 40 mg HS PATTI Administration Benzonatate 100 mg 11/12/18 22:43 11/14/18 05:49 Tessalon PO 100 mg TIDPRN PRN Administration Cough Bisacodyl 10 mg 11/03/18 07:34 11/13/18 23:54 Dulcolax PO 10 mg Q12H PRN Administration Constipation Doxycycline Hyclate 100 mg 11/12/18 21:00 11/14/18 08:03 Vibramycin PO 100 mg BID PATTI Administration Famotidine 20 mg 11/03/18 09:00 11/14/18 08:05 Pepcid PO 20 mg BID PATTI Administration Guaifenesin/Dextromethorphan 15 ml 11/03/18 07:34 11/13/18 03:10 Robitussin Dm PO 15 ml Q4H PRN Administration Cough Hydrocortisone Acetate 25 mg 11/13/18 20:32 11/14/18 05:49 Anusol-Hc RI 25 mg BIDPRN PRN Administration Hemorrhoids Insulin Human Regular 0 units 11/08/18 12:46 11/13/18 11:17 Humulin R SC 2 units .MILD SLIDING PRN Administration MILD SLIDING SCALE Protocol Levothyroxine Sodium 224 mcg 11/05/18 06:00 11/14/18 05:06 Synthroid PO 224 mcg 0600 PATTI Administration Melatonin 3 mg 11/03/18 22:36 11/13/18 21:08 Melatonin PO 3 mg HS PRN Administration Insomnia Metoprolol Succinate 50 mg 11/06/18 21:00 11/13/18 21:07 Toprol Xl PO 50 mg QPM PATTI Administration Ondansetron HCl 4 mg 11/03/18 07:34 11/12/18 20:37 Zofran IVP 4 mg Q6H PRN Administration Nausea/Vomiting Polyethylene Glycol 17 gm 11/02/18 09:00 11/14/18 08:05 Miralax PO 17 gm DAILY PATTI Administration Potassium Chloride 20 meq 11/04/18 08:00 11/14/18 08:06 Klor-Con PO 20 meq QAM-WM PATTI Administration Sodium Chloride 10 ml 11/08/18 21:00 11/14/18 09:00 Flush - Normal Saline IVF 10 ml Q12HR PATTI Administration Thyroid 30 mg 11/07/18 06:00 11/14/18 05:06 [place] Thyroid PO 30 mg MWF@0600 PATTI Administration - Exam Eye: PERRL, anicteric sclera Heart: RRR, no murmur, no gallops, no rubs, normal peripheral pulses Respiratory: CTAB, no wheezes, no rales, no ronchi, normal chest expansion Gastrointestinal: soft, non-tender, non-distended, normal bowel sounds Extremities: 2+ LE edema (2+ pitting edema in both lower extremities, tense, and almost to the point of weeping) Skin: normal turgor, no lesions (no drainage) Skin - other findings: Incision site looks good, no breakdown or induration, no erythema Psychiatric: A&O x 3 (tearful today) Hosp A/P (1) Atrial fibrillation and flutter Code(s): I48.91 - UNSPECIFIED ATRIAL FIBRILLATION; I48.92 - UNSPECIFIED ATRIAL FLUTTER Status: Acute (2) CAD (coronary artery disease) Code(s): I25.10 - ATHSCL HEART DISEASE OF [place] CORONARY ARTERY W/O ANG PCTRS Status: Acute Qualifiers: Coronary Disease-Associated Artery/Lesion type: [place] artery [place] vs. transplanted heart: [place] heart Associated angina: without angina Qualified Code(s): I25.10 - Atherosclerotic heart disease of [place] coronary artery without angina pectoris (3) Breast cancer Status: Chronic Qualifiers: Patient sex: female (4) Chronic anemia Code(s): D64.9 - ANEMIA, UNSPECIFIED Status: Chronic (5) HTN (hypertension) Code(s): I10 - ESSENTIAL (PRIMARY) HYPERTENSION Status: Chronic Qualifiers: Hypertension type: essential hypertension Qualified Code(s): I10 - Essential (primary) hypertension (6) S/P CABG (coronary artery bypass graft) Code(s): Z95.1 - PRESENCE OF AORTOCORONARY BYPASS GRAFT Status: Chronic (7) Luhtz-yy-pzdwmrs kidney injury Code(s): N17.9 - ACUTE KIDNEY FAILURE, UNSPECIFIED; N18.9 - CHRONIC KIDNEY DISEASE, UNSPECIFIED Status: Acute - Plan * CAD s/p CABG- continue PT/OT- hemodynamically stable * AFIB/AFlutter- she is mainly in sinus - continue Amiodarone * Mild CHF exacerbation- Continue to diurese- her renal function has remained stable * Acute kidney injury- continue to improve * Breast Cancer- stable- radiation is on hold due to recent CABG * Deconditioning- await Rehab screen
--- NOTE | 2018-11-14 19:39 | PRG ---
DATE OF SERVICE: 11/14/2018 SUBJECTIVE: Ms. Nascimento is seen ambulating in the halls. She had a bandage placed for support. She has had intermittent episodes of atrial flutter, which have been short-lived. She is currently on amiodarone therapy for control. We would also continue anticoagulation treatment. OBJECTIVE: GENERAL: Patient is a pleasant female, who is in no acute distress. The patient appears their stated age. VITAL SIGNS: Blood pressure 135/60, pulse 103, and respirations 20. NEUROLOGIC: The patient is alert and oriented x3 with no focal neurologic deficits. HEENT: Sclerae without icterus. Mouth has moist mucous membranes with normal pallor. NECK: No JVD. Carotid upstroke brisk. No bruits bilaterally. LUNGS: Clear to auscultation with unlabored respirations. BACK: No scoliosis or kyphosis. CARDIAC: Regular rate and rhythm with normal S1 and S2. No S3 or S4 noted. No significant rubs, murmurs, thrills, or gallops noted throughout the precordium. PMI is not displaced. There is no parasternal heave. ABDOMEN: Soft, nontender, nondistended. No peritoneal signs present. No hepatosplenomegaly. No abnormal striae. EXTREMITIES: 2+ femoral and 2+ dorsalis pedis pulses. No cyanosis, clubbing, or edema. SKIN: No gross abnormalities. PERTINENT LABORATORY DATA: Hemoglobin 9.4 and creatinine 1.18. IMPRESSION: 1. Coronary artery disease. 2. Status post bypass surgery. 3. ? ischemic mitral regurgitation. 4. Atrial flutter. RECOMMENDATIONS: Ms. Nascimento has had a few episodes of atrial flutter. At this point, we will continue with amiodarone therapy at 400 mg one p.o. b.i.d. We will also continue with Eliquis. Continue rehab. The patient will need placement. EP not available today or tomorrow. Job ID: [id number]
[2018-11-14] MEDS: ALPRAZolam 0.25 MG TAB PO PRN (21:55)
[2018-11-14] MEDS: Atorvastatin Calcium 40 MG TAB PO SCH (21:56)
[2018-11-14] MEDS: Melatonin 3 MG TAB PO PRN (21:59)
[2018-11-14] MEDS: Bisacodyl 5 MG TAB PO PRN (21:59)
[2018-11-15] MEDS: Levothyroxine Sodium 112 MCG TAB PO SCH (06:18)
[2018-11-15] MEDS: HYDROcodone/Acetaminophen 5/325 mg Tablet PO PRN ×3 (06:22→23:16)
[2018-11-15] MEDS: Furosemide 80 MG TAB PO SCH (08:11)
[2018-11-15] MEDS: Aspirin 81 mg Enteric Coated Tablet PO SCH (08:11)
[2018-11-15] MEDS: Famotidine 20 MG TAB PO SCH ×2 (08:12→20:56)
[2018-11-15] MEDS: Apixaban 5 MG TAB PO SCH ×2 (08:12→20:56)
[2018-11-15] MEDS: Amiodarone 200 MG TAB PO SCH ×2 (08:12→20:55)
[2018-11-15] MEDS: Doxycycline 100 MG CAP PO SCH ×2 (08:12→20:56)
[2018-11-15] MEDS: Polyethylene Glycol 3350 17 GM Packet PO SCH (08:13)
[2018-11-15 08:17] LABS: #Eosinphils 0.2 thou/uL (0.0-0.7); #Lymphocytes 1.1 thou/uL (1.20-3.40); #Monocytes 0.5 thou/uL (0.11-0.59); #Neutrophils 3.1 thou/uL (1.40-6.50); %Basophils 0.4 % (0.0-1.0); %Eosinophils 4.1 % (0.0-10.0); %Lymphocytes 22.7 % (21.0-51.0); %Monocytes 10.1 % (0.0-10.0); %Neutrophils 62.7 % (42.0-75.0); Hemoglobin 9.3 g/dL (12.0-16.0); Mean Corpuscular HGB CONC 33.3 g/dL (32.0-36.0); Mean Corpuscular Hemoglobin 31.1 pg (27.0-31.0); Mean Corpuscular Volume 93.6 fL (78.0-98.0); Mean Platelet Volume 6.4 fL (7.4-10.4); Platelet Count 451 thou/uL (130-400)
[2018-11-15 08:36] LABS: Anion Gap 15 mmol/L (10-20); BUN (Urea Nitrogen) 23 mg/dL (9.8-20.1); Calc. Creatinine Clearance 91 mL/min (70-130); Calcium 9.6 mg/dL (7.8-10.44); Carbon Dioxide 25 mmol/L (23-31); Chloride 100 mmol/L (98-107); Estimated GFR-MDRD 47; Glucose 133 mg/dL (80-115); Sodium 136 mmol/L (136-145)
--- NOTE | 2018-11-15 10:07 | PRG ---
DATE OF SERVICE: 11/15/2018 SUBJECTIVE: Yari Trinidad this morning is still complaining of significant drainage from her legs. OBJECTIVE: VITAL SIGNS: Temperature 99, pulse 68, respiratory rate 18, sats are 96% on room air, and blood pressure 130/68. CHEST: No wheezing or crackles. CARDIAC: Normal S1 and S2. No gallops. ABDOMEN: No masses. LABORATORY DATA: Unremarkable. IMPRESSION: Azotemia is minimal. Status post coronary artery bypass graft. Status post supraventricular tachycardia, sleep apnea, severe deconditioning, respiratory failure, marked stasis, and edema. PLAN: May consider restarting diuretics. Keep a watch on a thyroid function. Keep a watch on a renal function. We will follow. Job ID: [id number]
[2018-11-15 10:45] LABS: ALV-art Gradient -61.925 (0-20); Actual Bicarbonate (HCO3a) 27.9 mEq/L (22-28); Base Excess (BEa) 3.2 mEq/L (-2.0 to +3.0); CO2 Tension 42.9 mmHg (35.0-45.0); Calcium, Ionized 1.09 mmol/L (1.12-1.30); Carboxyhemoglobin (COHb) 0.7 gm% (0.0-3.0); Hemoglobin (Hb) 10.5 g/dL (12.0-16.0); O2 Tension (PaO2) 79.6 mmHg (> 80.0); Potassium - ABG Lab 3.11 mmol/L (3.70-5.30); Puncture Site ALINE; pH, Arterial 7.43 (7.35-7.45)
[2018-11-15] MEDS: ALPRAZolam 0.25 MG TAB PO PRN ×2 (13:42→20:54)
--- NOTE | 2018-11-15 13:53 | PRG ---
DATE OF SERVICE: 11/15/2018 SUBJECTIVE: Ms. Nascimento continues to slowly improve. She does continue to have shortness of breath with ambulation, but it is likely due to deconditioning. She continues to complain of lower extremity edema. She was on Lasix and developed renal insufficiency. It has now improved. Her admission weight dated 10/24/2018 was 266. Her current weight is 255. OBJECTIVE: GENERAL: Patient is a pleasant female, who is in no acute distress. The patient appears their stated age. VITAL SIGNS: Blood pressure 150/66, pulse 62, temperature afebrile. NEUROLOGIC: The patient is alert and oriented x3 with no focal neurologic deficits. HEENT: Sclerae without icterus. Mouth has moist mucous membranes with normal pallor. NECK: No JVD. Carotid upstroke brisk. No bruits bilaterally. LUNGS: Clear to auscultation with unlabored respirations. BACK: No scoliosis or kyphosis. CARDIAC: Regular rate and rhythm with normal S1 and S2. No S3 or S4 noted. No significant rubs, murmurs, thrills, or gallops noted throughout the precordium. PMI is not displaced. There is no parasternal heave. ABDOMEN: Soft, nontender, nondistended. No peritoneal signs present. No hepatosplenomegaly. No abnormal striae. EXTREMITIES: 2+ pitting edema. SKIN: No gross abnormalities. PERTINENT LABORATORY DATA: Hemoglobin 9.3 and creatinine 1.17 with a GFR of 47. IMPRESSION: 1. Coronary artery disease. 2. Status post bypass surgery. 3. ? Ischemic mitral regurgitation. 4. Breast cancer. RECOMMENDATIONS: Ms. Nascimento continues to have intermittent atrial fibrillation, but appears to have improved. She is having less and less episodes. Given that our equipment is currently not working properly, we will continue with medical therapy. I would recommend continuing amiodarone at 400 mg b.i.d. in addition to Eliquis. She may have a previous history of paroxysmal atrial fibrillation, but may also be related to postop atrial fibrillation. Lasix has been restarted. Continue ambulation with physical therapy. Job ID: [id number]
--- NOTE | 2018-11-15 14:23 | PDOC.HOSPP ---
- Subjective Encounter Date: 11/15/18 Encounter Time: 12:30 Subjective: Ms. Nascimento was seen today in follow-up of CAD and post CABG. She continues to have severe leg swelling. She has been ambulating some - Objective Vital Signs & Weight: Vital Signs (12 hours) Temp Pulse Pulse Pulse Pulse Resp BP 11/15/18 12:16 97.8 F 62 18 11/15/18 08:40 73 62 69 173/70 H 11/15/18 07:51 97.7 F 68 18 11/15/18 03:09 97.8 F 64 16 BP BP BP Pulse Ox 11/15/18 12:16 140/62 96 11/15/18 08:40 152/66 H 136/63 11/15/18 07:51 139/68 96 11/15/18 03:09 133/59 L 98 Weight Admit Weight 266 lb 8.622 oz Weight 255 lb 12.8 oz Most Recent Monitor Data Heart Rate from ECG 85 NIBP 153/82 NIBP BP-Mean 105 Respiration from ECG 20 SpO2 98 I&O: 11/14/18 11/15/18 11/16/18 06:59 06:59 06:59 Intake Total 1780 1440 Output Total 1750 1600 Balance 30 -160 Result Diagrams: 11/15/18 08:06 11/15/18 08:06 Additional Labs: Accuchecks 11/15/18 11/15/18 11/14/18 11:34 06:26 20:34 POC Glucose 163 H 141 H 136 H 11/14/18 17:26 POC Glucose 140 H Hospitalist ROS - Medication Medications: Active Medications Generic Name Dose Route Start Last Admin Trade Name Freq PRN Reason Stop Dose Admin Acetaminophen 650 mg 11/12/18 22:43 11/13/18 08:14 Tylenol PO 650 mg Q4H PRN Administration Fever/Mild Pain Hydrocodone Bitart/Acetaminophen 1 tab 11/11/18 15:01 11/15/18 13:40 [place] 5/325 PO 1 tab Q4H PRN Administration Pain Alprazolam 0.25 mg 11/06/18 14:06 11/15/18 13:42 Xanax PO 0.25 mg TIDPRN PRN Administration Anxiety Amiodarone HCl 400 mg 11/12/18 09:00 11/15/18 08:12 Cordarone PO 400 mg BID PATTI Administration Apixaban 5 mg 11/07/18 21:00 11/15/18 08:12 Eliquis PO 5 mg BID PATTI Administration Aspirin 81 mg 11/07/18 09:00 11/15/18 08:11 Ecotrin PO 81 mg DAILY PATTI Administration Atorvastatin Calcium 40 mg 11/11/18 21:00 11/14/18 21:56 Lipitor PO 40 mg HS PATTI Administration Benzonatate 100 mg 11/12/18 22:43 11/14/18 05:49 Tessalon PO 100 mg TIDPRN PRN Administration Cough Bisacodyl 10 mg 11/03/18 07:34 11/14/18 21:59 Dulcolax PO 10 mg Q12H PRN Administration Constipation Doxycycline Hyclate 100 mg 11/12/18 21:00 11/15/18 08:12 Vibramycin PO 100 mg BID PATTI Administration Famotidine 20 mg 11/03/18 09:00 11/15/18 08:12 Pepcid PO 20 mg BID PATTI Administration Furosemide 80 mg 11/15/18 07:30 11/15/18 08:11 Lasix PO 80 mg DAILY-AC PATTI Administration Guaifenesin/Dextromethorphan 15 ml 11/03/18 07:34 11/13/18 03:10 Robitussin Dm PO 15 ml Q4H PRN Administration Cough Hydrocortisone Acetate 25 mg 11/13/18 20:32 11/14/18 22:03 Anusol-Hc [place] 25 mg BIDPRN PRN Administration Hemorrhoids Insulin Human Regular 0 units 11/08/18 12:46 11/13/18 11:17 Humulin R SC 2 units .MILD SLIDING PRN Administration MILD SLIDING SCALE Protocol Levothyroxine Sodium 224 mcg 11/05/18 06:00 11/15/18 06:18 Synthroid PO 224 mcg 0600 PATTI Administration Melatonin 3 mg 11/03/18 22:36 11/14/18 21:59 Melatonin PO 3 mg HS PRN Administration Insomnia Metoprolol Succinate 50 mg 11/06/18 21:00 11/14/18 21:59 Toprol Xl PO 50 mg QPM PATTI Administration Ondansetron HCl 4 mg 11/03/18 07:34 11/12/18 20:37 Zofran IVP 4 mg Q6H PRN Administration Nausea/Vomiting Polyethylene Glycol 17 gm 11/02/18 09:00 11/15/18 08:13 Miralax PO Not Given DAILY PATTI Potassium Chloride 20 meq 11/04/18 08:00 11/15/18 08:13 Klor-Con PO Not Given QAM-WM PATTI Sodium Chloride 10 ml 11/08/18 21:00 11/15/18 08:14 Flush - Normal Saline IVF 10 ml Q12HR PATTI Administration Thyroid 30 mg 11/07/18 06:00 11/14/18 05:06 [place] Thyroid PO 30 mg MWF@0600 PATTI Administration - Exam Eye: PERRL, anicteric sclera Heart: RRR, no murmur, no gallops, no rubs, normal peripheral pulses Respiratory: CTAB, no wheezes, no rales, no ronchi, normal chest expansion, no tachypnea, normal percussion Gastrointestinal: soft, non-tender, non-distended, normal bowel sounds, no palpable masses, no hepatomegaly, no splenomegaly Extremities: 2+ LE edema (+ tense bilateral lower extremity edema) Skin - other findings: + mild erythema of the left breast- but improved, no induration no warmth Neurological: CN's grossly intact, normal sensation to touch Hosp A/P (1) CAD (coronary artery disease) Code(s): I25.10 - ATHSCL HEART DISEASE OF [place] CORONARY ARTERY W/O ANG PCTRS Status: Acute Qualifiers: Coronary Disease-Associated Artery/Lesion type: [place] artery [place] vs. transplanted heart: [place] heart Associated angina: without angina Qualified Code(s): I25.10 - Atherosclerotic heart disease of [place] coronary artery without angina pectoris (2) Atrial fibrillation and flutter Code(s): I48.91 - UNSPECIFIED ATRIAL FIBRILLATION; I48.92 - UNSPECIFIED ATRIAL FLUTTER Status: Acute (3) Breast cancer Status: Chronic Qualifiers: Patient sex: female (4) Chronic anemia Code(s): D64.9 - ANEMIA, UNSPECIFIED Status: Chronic (5) HTN (hypertension) Code(s): I10 - ESSENTIAL (PRIMARY) HYPERTENSION Status: Chronic Qualifiers: Hypertension type: essential hypertension Qualified Code(s): I10 - Essential (primary) hypertension (6) S/P CABG (coronary artery bypass graft) Code(s): Z95.1 - PRESENCE OF AORTOCORONARY BYPASS GRAFT Status: Chronic (7) Nynzh-bn-yfobwoj kidney injury Code(s): N17.9 - ACUTE KIDNEY FAILURE, UNSPECIFIED; N18.9 - CHRONIC KIDNEY DISEASE, UNSPECIFIED Status: Acute - Plan * CAD s/p CABG- stable * AFIB/AFlutter- contiue Amiodarone * Mild CHF exacerbation- Lasix has been transitioned to p.o. * Acute kidney injury- resolved, and renal function has been stable even on Lasix * Breast Cancer- stable- * Deconditioning- await Rehab screen
[2018-11-15] MEDS: Melatonin 3 MG TAB PO PRN (20:54)
[2018-11-15] MEDS: Spironolactone 25 MG TAB PO SCH (20:56)
[2018-11-15] MEDS: Atorvastatin Calcium 40 MG TAB PO SCH (20:56)
[2018-11-15] MEDS: Ondansetron PF 4 MG/2 ML Vial IVP PRN (21:04)
[2018-11-16] MEDS: Thyroid 30 MG TAB PO SCH (06:25)
[2018-11-16] MEDS: Levothyroxine Sodium 112 MCG TAB PO SCH (06:25)
[2018-11-16] MEDS: HYDROcodone/Acetaminophen 5/325 mg Tablet PO PRN ×2 (09:05→15:11)
[2018-11-16] MEDS: Doxycycline 100 MG CAP PO SCH (09:05)
[2018-11-16] MEDS: ALPRAZolam 0.25 MG TAB PO PRN (09:09)
[2018-11-16] MEDS: Famotidine 20 MG TAB PO SCH (09:09)
[2018-11-16] MEDS: Spironolactone 25 MG TAB PO SCH (09:10)
[2018-11-16] MEDS: Amiodarone 200 MG TAB PO SCH (09:10)
[2018-11-16] MEDS: Furosemide 80 MG TAB PO SCH (09:10)
[2018-11-16] MEDS: Aspirin 81 mg Enteric Coated Tablet PO SCH (09:10)
[2018-11-16] MEDS: Apixaban 5 MG TAB PO SCH (09:10)
[2018-11-16] MEDS: Polyethylene Glycol 3350 17 GM Packet PO SCH (09:11)
[2018-11-16 09:13] VITALS: BMI 36.1
--- NOTE | 2018-11-16 09:57 | PRG ---
DATE OF SERVICE: 11/16/2018 SUBJECTIVE: This morning, she is better. Her legs are still swollen, though she lost significant weight. OBJECTIVE: VITAL SIGNS: Temperature 98, pulse 70, respiratory rate 18, saturations are 96% on room air, blood pressure 136/63. CHEST: Decreased breath sounds. No wheezing. CARDIAC: Normal S1 and S2. ABDOMEN: No masses. IMPRESSION: Morbid obesity, stasis edema, breast cancer, sleep apnea, and coronary artery bypass grafting. PLAN: Continue PT, supportive care, eventually placement. Job ID: [id number]
[2018-11-16] MEDS: Insulin Regular 300 UNITS/3 ML VIAL SC PRN (12:08)
--- NOTE | 2018-11-16 13:55 | PDOC.HOSPP ---
- Subjective Encounter Date: 11/16/18 Encounter Time: 13:53 Subjective: Mr. Nascimento was seen today in follow-up of CAD. She does not have any new complaints. - Objective Vital Signs & Weight: Vital Signs (12 hours) Temp Pulse Pulse Pulse Resp BP BP 11/16/18 13:41 131 H 69 141/61 H 130/59 L 11/16/18 08:27 64 60 139/68 137/77 11/16/18 07:30 97.9 F 61 16 11/16/18 04:00 71 18 BP Pulse Ox 11/16/18 13:41 11/16/18 08:27 11/16/18 07:30 149/66 H 98 11/16/18 04:00 136/63 96 Weight Admit Weight 266 lb 8.622 oz Weight 252 lb Most Recent Monitor Data Heart Rate from ECG 85 NIBP 153/82 NIBP BP-Mean 105 Respiration from ECG 20 SpO2 98 I&O: 11/15/18 11/16/18 11/17/18 06:59 06:59 06:59 Intake Total 1440 1290 Output Total 1600 1550 Balance -160 -260 Result Diagrams: 11/15/18 08:06 11/15/18 08:06 Additional Labs: Accuchecks 11/16/18 11/16/18 11/15/18 11:13 06:06 20:21 POC Glucose 184 H 144 H 142 H 11/15/18 17:46 POC Glucose 119 H Hospitalist ROS - Medication Medications: Active Medications Generic Name Dose Route Start Last Admin Trade Name Freq PRN Reason Stop Dose Admin Acetaminophen 650 mg 11/12/18 22:43 11/13/18 08:14 Tylenol PO 650 mg Q4H PRN Administration Fever/Mild Pain Hydrocodone Bitart/Acetaminophen 1 tab 11/11/18 15:01 11/16/18 09:05 [place] 5/325 PO 1 tab Q4H PRN Administration Pain Alprazolam 0.25 mg 11/06/18 14:06 11/16/18 09:09 Xanax PO 0.25 mg TIDPRN PRN Administration Anxiety Amiodarone HCl 400 mg 11/12/18 09:00 11/16/18 09:10 Cordarone PO 400 mg BID PATTI Administration Apixaban 5 mg 11/07/18 21:00 11/16/18 09:10 Eliquis PO 5 mg BID PATTI Administration Aspirin 81 mg 11/07/18 09:00 11/16/18 09:10 Ecotrin PO 81 mg DAILY PATTI Administration Atorvastatin Calcium 40 mg 11/11/18 21:00 11/15/18 20:56 Lipitor PO 40 mg HS PATTI Administration Benzonatate 100 mg 11/12/18 22:43 11/14/18 05:49 Tessalon PO 100 mg TIDPRN PRN Administration Cough Bisacodyl 10 mg 11/03/18 07:34 11/14/18 21:59 Dulcolax PO 10 mg Q12H PRN Administration Constipation Doxycycline Hyclate 100 mg 11/12/18 21:00 11/16/18 09:05 Vibramycin PO 100 mg BID PATTI Administration Famotidine 20 mg 11/03/18 09:00 11/16/18 09:09 Pepcid PO 20 mg BID PATTI Administration Furosemide 80 mg 11/15/18 07:30 11/16/18 09:10 Lasix PO 80 mg DAILY-AC PATTI Administration Guaifenesin/Dextromethorphan 15 ml 11/03/18 07:34 11/13/18 03:10 Robitussin Dm PO 15 ml Q4H PRN Administration Cough Hydrocortisone Acetate 25 mg 11/13/18 20:32 11/14/18 22:03 Anusol-Hc [place] 25 mg BIDPRN PRN Administration Hemorrhoids Insulin Human Regular 0 units 11/08/18 12:46 11/16/18 12:08 Humulin R SC 2 units .MILD SLIDING PRN Administration MILD SLIDING SCALE Protocol Levothyroxine Sodium 224 mcg 11/05/18 06:00 11/16/18 06:25 Synthroid PO 224 mcg 0600 PATTI Administration Melatonin 3 mg 11/03/18 22:36 11/15/18 20:54 Melatonin PO 3 mg HS PRN Administration Insomnia Metoprolol Succinate 50 mg 11/06/18 21:00 11/15/18 20:55 Toprol Xl PO 50 mg QPM PATTI Administration Ondansetron HCl 4 mg 11/03/18 07:34 11/15/18 21:04 Zofran IVP 4 mg Q6H PRN Administration Nausea/Vomiting Polyethylene Glycol 17 gm 11/02/18 09:00 11/16/18 09:11 Miralax PO 17 gm DAILY PATTI Administration Potassium Chloride 20 meq 11/04/18 08:00 11/16/18 09:11 Klor-Con PO 20 meq QAM-WM PATTI Administration Sodium Chloride 10 ml 11/08/18 21:00 11/16/18 09:12 Flush - Normal Saline IVF 10 ml Q12HR PATTI Administration Spironolactone 25 mg 11/15/18 17:00 11/16/18 09:10 Aldactone PO 25 mg BID-WM PATTI Administration Thyroid 30 mg 11/07/18 06:00 11/16/18 06:25 [place] Thyroid PO 30 mg MWF@0600 PATTI Administration - Exam Eye: PERRL, anicteric sclera Heart: RRR, no murmur, no gallops, no rubs, normal peripheral pulses Respiratory: CTAB (+ coarse breath sounds), no rales, no ronchi, normal chest expansion Gastrointestinal: soft, non-tender, non-distended, normal bowel sounds Extremities: 2+ LE edema (2+ pitting edema in both lower extremities) Hosp A/P (1) CAD (coronary artery disease) Code(s): I25.10 - ATHSCL HEART DISEASE OF [place] CORONARY ARTERY W/O ANG PCTRS Status: Acute Qualifiers: Coronary Disease-Associated Artery/Lesion type: [place] artery [place] vs. transplanted heart: [place] heart Associated angina: without angina Qualified Code(s): I25.10 - Atherosclerotic heart disease of [place] coronary artery without angina pectoris (2) Atrial fibrillation and flutter Code(s): I48.91 - UNSPECIFIED ATRIAL FIBRILLATION; I48.92 - UNSPECIFIED ATRIAL FLUTTER Status: Acute (3) Breast cancer Status: Chronic Qualifiers: Patient sex: female (4) Chronic anemia Code(s): D64.9 - ANEMIA, UNSPECIFIED Status: Chronic (5) HTN (hypertension) Code(s): I10 - ESSENTIAL (PRIMARY) HYPERTENSION Status: Chronic Qualifiers: Hypertension type: essential hypertension Qualified Code(s): I10 - Essential (primary) hypertension (6) S/P CABG (coronary artery bypass graft) Code(s): Z95.1 - PRESENCE OF AORTOCORONARY BYPASS GRAFT Status: Chronic (7) Vpcmx-lz-esxymwl kidney injury Code(s): N17.9 - ACUTE KIDNEY FAILURE, UNSPECIFIED; N18.9 - CHRONIC KIDNEY DISEASE, UNSPECIFIED Status: Acute - Plan * CAD s/p CABG- stable * AFIB/AFlutter- contiue Amiodarone * Mild CHF exacerbation- Lbetter compensated * Acute kidney injury- resolved * Breast Cancer- stable- * Deconditioning- she has been approved for Rehab- will transfer
[2018-11-16 15:45] VITALS: BP 113/57; TEMP 98.8
--- NOTE | 2018-11-17 06:40 | DIS ---
DATE OF ADMISSION: 10/24/2018 DATE OF DISCHARGE: 11/16/2018 DISCHARGE DISPOSITION: To inpatient rehab. DISCHARGE DIAGNOSES: 1. Acute coronary syndrome. 2. Status post 3-vessel bypass. 3. Acute kidney injury, resolved. 4. Hypertension. 5. Chronic anemia. 6. Atrial fibrillation and atrial flutter. 7. Acute on chronic kidney injury. 8. Breast cancer. DISCHARGE MEDICATIONS: 1. [place] Thyroid 30 mg Wednesday, Wednesday, and Wednesday. 2. Aldactone 25 mg twice a day. 3. Klor-Con 20 mEq daily. 4. Nitrostat 0.4 sublingual. 5. Mineral oil. 6. Toprol-XL 50 mg daily. 7. Levothyroxine 224 mcg daily. 8. [place] 5/325 q.4 hours as needed. 9. Lasix 80 mg daily. 10. Aspirin 81 mg daily. 11. Eliquis 5 mg twice a day. 12. Amiodarone 400 mg twice daily. 13. Alprazolam 0.25 mg t.i.d. 14. Crestor 20 mg daily. 15. Omeprazole 20 mg daily. 16. Fenofibrate 200 mg at bedtime. 17. Vitamin D 50,000 units daily. IMAGING AND PROCEDURES: The patient had a CT scan of the abdomen and pelvis, showing dense consolidation in bilateral lung bases. On the basis of possible infectious pneumonitis and nonspecific bilateral adrenal nodules, the patient had a CT angiogram of the chest. The patient had no evidence of central pulmonary embolism. There are bibasilar airspace opacities suspicious for pneumonia and aspiration. The patient had a cardiac catheterization in which there is significant 3-vessel coronary artery disease. The patient had an echocardiogram demonstrating an ejection fraction of 40% to 45%. The left atrium was yroypijcga-cs-ldbyuphr dilated. The patient had 3-vessel bypass surgery on 11/01/2018 with MOSLEY to the LAD and saphenous vein grafts to the right coronary and the obtuse marginal. The patient had a lower extremity venous Doppler showing no evidence of DVT in either extremity. CODE STATUS: Full code. ALLERGIES: TO CODEINE, PENICILLIN, PROPOXYPHENE, AND TRAMADOL. HOSPITAL COURSE: Ms. Nascimento is a pleasant 62-year-old female, who presented to the emergency room initially on 10/24/2018 with complaints of chest discomfort and actually she was in the HEB when she collapsed and CPR was initiated, and she was transferred to our facility. The full details of which are outlined by Dr. Walker in his history and physical. She was admitted and went emergently to cardiac catheterization and was found to have an acute coronary syndrome. CTA of the chest was negative for PE. She was found to have 3-vessel coronary artery disease. Vascular Surgery was consulted. She was assessed and felt to be a candidate for bypass surgery. This was done on 11/01/2018. The patient's postoperative course was complicated by volume overload. She was diuresed with IV Lasix and an echocardiogram was obtained. She was found to have mild systolic heart failure with an EF of 40% to 45%. After receiving diuresis, she developed an acute on chronic kidney injury. Lasix had to be held for several days. Nephrology was consulted and her renal function improved after the Lasix was held. She had another complication with atrial fibrillation and atrial flutter. This did not respond rapidly and therefore, amiodarone was started. She was also placed on Eliquis for stroke prevention. Once her heart rate improved, plans were made for her to be transitioned to inpatient rehab. She was very deconditioned and therefore, she was evaluated and accepted to inpatient rehab and was able to be transferred on 11/16/2018. Job ID: [id number]
== END 2018-11-16 15:42 | DRG 233 ==
LOC: ERS 15:26 → CCU 18:09 → 2NO 11-03 16:59
PROVIDERS: ADMIT Internal Medicine; ATTEND Internal Medicine
PROC: 5A1945Z Respiratory Ventilation, 24-96 Consecutive Hours (ICD-10-PCS; principal; 2018-10-24)
PROC: 0BH18EZ Insertion of Endotracheal Airway into Trachea, Via Natural or Artificial Opening Endoscopic (ICD-10-PCS; 2018-10-25)
PROC: 5A1945Z Respiratory Ventilation, 24-96 Consecutive Hours (ICD-10-PCS; 2018-10-25)
PROC: 5A09357 Assistance with Respiratory Ventilation, Less than 24 Consecutive Hours, Continuous Positive Airway Pressure (ICD-10-PCS; 2018-10-25)
PROC: 0JPT3WZ Removal of Totally Implantable Vascular Access Device from Trunk Subcutaneous Tissue and Fascia, Percutaneous Approach (ICD-10-PCS; 2018-10-25)
PROC: 4A023N8 Measurement of Cardiac Sampling and Pressure, Bilateral, Percutaneous Approach (ICD-10-PCS; 2018-10-26)
PROC: B2161ZZ Fluoroscopy of Right and Left Heart using Low Osmolar Contrast (ICD-10-PCS; 2018-10-26)
PROC: B2111ZZ Fluoroscopy of Multiple Coronary Arteries using Low Osmolar Contrast (ICD-10-PCS; 2018-10-26)
PROC: 02100Z9 Bypass Coronary Artery, One Artery from Left Internal Mammary, Open Approach (ICD-10-PCS; 2018-11-01)
PROC: 06BQ4ZZ Excision of Left Saphenous Vein, Percutaneous Endoscopic Approach (ICD-10-PCS; 2018-11-01)
PROC: 30233N1 Transfusion of Nonautologous Red Blood Cells into Peripheral Vein, Percutaneous Approach (ICD-10-PCS; 2018-11-01)
PROC: 021109W Bypass Coronary Artery, Two Arteries from Aorta with Autologous Venous Tissue, Open Approach (ICD-10-PCS; 2018-11-01)
PROC: 5A1221Z Performance of Cardiac Output, Continuous (ICD-10-PCS; 2018-11-01)
DX: I25.10 Atherosclerotic heart disease of native coronary artery without angina pectoris (principal); J18.9 Pneumonia, unspecified organism; J81.0 Acute pulmonary edema; J96.01 Acute respiratory failure with hypoxia; I50.21 Acute systolic (congestive) heart failure; I24.9 Acute ischemic heart disease, unspecified; I48.92 Unspecified atrial flutter; I47.1 Supraventricular tachycardia; N17.9 Acute kidney failure, unspecified; I13.0 Hypertensive heart and chronic kidney disease with heart failure and stage 1 through stage 4 chronic kidney disease, or unspecified chronic kidney disease; J44.0 Chronic obstructive pulmonary disease with (acute) lower respiratory infection; C50.912 Malignant neoplasm of unspecified site of left female breast; E78.5 Hyperlipidemia, unspecified; F41.9 Anxiety disorder, unspecified; F32.9 Major depressive disorder, single episode, unspecified; E03.9 Hypothyroidism, unspecified; K21.9 Gastro-esophageal reflux disease without esophagitis; M13.819 Other specified arthritis, unspecified shoulder; E55.9 Vitamin D deficiency, unspecified; E66.01 Morbid (severe) obesity due to excess calories; I35.0 Nonrheumatic aortic (valve) stenosis; E11.22 Type 2 diabetes mellitus with diabetic chronic kidney disease; N18.9 Chronic kidney disease, unspecified; D63.1 Anemia in chronic kidney disease; G47.33 Obstructive sleep apnea (adult) (pediatric); I48.0 Paroxysmal atrial fibrillation; E87.70 Fluid overload, unspecified; I34.0 Nonrheumatic mitral (valve) insufficiency; Z87.891 Personal history of nicotine dependence; Z68.36 Body mass index [BMI] 36.0-36.9, adult; Z90.49 Acquired absence of other specified parts of digestive tract; Z88.8 Allergy status to other drugs, medicaments and biological substances; Z88.5 Allergy status to narcotic agent; Z88.0 Allergy status to penicillin; Z79.84 Long term (current) use of oral hypoglycemic drugs; Z79.899 Other long term (current) drug therapy; E11.43 Type 2 diabetes mellitus with diabetic autonomic (poly)neuropathy; K31.84 Gastroparesis; Z90.710 Acquired absence of both cervix and uterus; E78.00 Pure hypercholesterolemia, unspecified
CPT/HCPCS: 36415; 36416; 36430; 36556; 51702; 70450; 71045; 71275; 74177; 76942; 77336; 77412; 77417; 80048; 80053; 80076; 80162; 80306; 80307; 81001; 81003; 81015; 82550; 82805; 82947; 83036; 83605; 83690; 83735; 83880; 84145; 84443; 84484; 85025; 85610; 85730; 86850; 86900; 86901; 87040; 87077; 87086; 93005; 93010; 93306; 93460; 93798; 93970; 94002; 94003; 94150; 94640; 94660; 94760; 96361; 96365; 96366; 96368; 96375; 99152; 99153; C1769; C9113; J0282; J0670; J0692; J1160; J1200; J1644; J1650; J1815; J1885; J1940; J2001; J2060; J2150; J2250; J2270; J2405; J2440; J2543; J2704; J2720; J2920; J3010; J3370; J3475; J3480; J3490; J7050; J7070; J7620; J7626; P9016; P9045; Q0163; Q9966; Q9967; S0017; S0028

== ENCOUNTER 2020-05-21 13:39 | Outpatient (CLI) | payer BC | END 2020-05-21 13:40 | disposition home or self-care (01) | LOC: BICMAMMO 13:39 | PROVIDERS: ATTEND Internal Medicine Hematology & Oncology | DX: N63.20 Unspecified lump in the left breast, unspecified quadrant (principal) | CPT/HCPCS: 77066; G0279 ==

== ENCOUNTER 2020-11-15 12:46 | Outpatient (CLI) | payer BC ==
[2020-11-15 14:44] LABS: Hemoglobin 13.7 g/dL (12.0-15.5); Mean Corpuscular HGB CONC 33.4 g/dL (32.0-36.0); Mean Corpuscular Hemoglobin 33.3 pg (27.0-33.0); Mean Corpuscular Volume 99.5 fl (81.6-98.3); Mean Platelet Volume 10.4 fl (7.4-10.4); Platelet Count 330 10x3/uL (150-450); RBC Distribution Width 14.6 % (11.5-14.5); Red Blood Cell (RBC) Count 4.12 10x6/uL (3.90-5.03); White Blood Cell (WBC) Count 6.2 10x3/uL (3.5-10.5)
[2020-11-15 14:59] LABS: PTT 26.7 sec (22.0-33.0); Prothrombin Time 10.9 sec (9.5-12.1)
[2020-11-15 15:07] LABS: ALT (SGPT) 29 U/L (8-55); AST (SGOT) 32 U/L (5-34); Albumin 4.4 g/dL (3.4-4.8); Alkaline Phosphatase 43 U/L (40-110); Anion Gap 18 mmol/L (10-20); BUN (Urea Nitrogen) 22 mg/dL (9.8-20.1); Bilirubin, Total 0.4 mg/dL (0.2-1.2); Calc. Creatinine Clearance 0 mL/min (70-130); Calcium 10.8 mg/dL (7.8-10.44); Carbon Dioxide 22 mmol/L (23-31); Chloride 107 mmol/L (98-107); Globulin 2.8 g/dL (2.4-3.5); Glucose 112 mg/dL (80-115); Potassium 5.4 mmol/L (3.5-5.1); Protein, Total 7.2 g/dL (5.8-8.1); Sodium 142 mmol/L (136-145)
[2020-11-17 17:06] LABS: SARS-CoV-2 PCR by NAA Not Detected (NotDetected)
== END 2020-11-15 12:47 | disposition home or self-care (01) ==
LOC: LABBT 12:46
PROVIDERS: ATTEND Internal Medicine Cardiovascular Disease
DX: Z01.818 Encounter for other preprocedural examination (principal); M25.519 Pain in unspecified shoulder; Z20.822 Contact with and (suspected) exposure to COVID-19
CPT/HCPCS: 80053; 85027; 85610; 85730; 93005; 93010; U0003; U0005

== ENCOUNTER → 2020-11-19 | Day surgery (SDC) | payer BC ==
[2020-11-18 10:28] VITALS: BMI 39.4
[~2020-11-19] MED LIST changes: +Acetaminophen 500 MG TAB ONE; +Acetaminophen 500 MG TAB PO SCH; +Adenosine 6 MG/2 ML VIAL ONE; +Fentanyl 100 MCG/2 ML VIAL ONE; -ISOVUE-370 76%-LOCM 1 ML ONE; +Iopamidol 370 76% 100 ML VIAL ONE; +Midazolam HCl 2 mg/2 ml Vial ONE; +Nitroglycerin 100MG/250ML BOT 0 ML ONE; +Verapamil 5 MG/2 ML VIAL ONE
[2020-11-19 13:20] LABS: Anion Gap 13 mmol/L (10-20); BUN (Urea Nitrogen) 17 mg/dL (9.8-20.1); Calc. Creatinine Clearance 110 mL/min (70-130); Calcium 9.5 mg/dL (7.8-10.44); Carbon Dioxide 25 mmol/L (23-31); Chloride 104 mmol/L (98-107); Glucose 107 mg/dL (80-115); Potassium 3.9 mmol/L (3.5-5.1); Sodium 138 mmol/L (136-145)
[2020-11-19 13:31] LABS: Band 26 % (5-11); Eosinophils 3 % (0-10); Hemoglobin 12.3 g/dL (12.0-16.0); Lymphocytes 10 % (21-51); MDiff Complete? YES; Mean Corpuscular HGB CONC 34.1 g/dL (32.0-36.0); Mean Corpuscular Volume 99.7 fL (78.0-98.0); Mean Platelet Volume 9.2 fL (7.4-10.4); Monocytes 3 % (0-10); Neutrophil 54 % (42-75); Platelet Clumps MODERATE; Platelet Morphology Comment PLT clumps seen-ADEQ; RBC Distribution Width 13.4 % (11.5-14.5); RBC Morphology Normal; Reactive Lymphocytes 4 % (0-10); Red Blood Cell (RBC) Count 3.63 mill/uL (4.20-5.40); White Blood Cell (WBC) Count 5.6 thou/uL (4.8-10.8)
== END ==
LOC: CCL 09:44
PROVIDERS: ATTEND Internal Medicine Cardiovascular Disease
PROC: B2181ZZ Fluoroscopy of Left Internal Mammary Bypass Graft using Low Osmolar Contrast (ICD-10-PCS; principal; 2020-11-19)
PROC: B2111ZZ Fluoroscopy of Multiple Coronary Arteries using Low Osmolar Contrast (ICD-10-PCS; principal; 2020-11-19)
PROC: B2131ZZ Fluoroscopy of Multiple Coronary Artery Bypass Grafts using Low Osmolar Contrast (ICD-10-PCS; principal; 2020-11-19)
PROC: 4A023N7 Measurement of Cardiac Sampling and Pressure, Left Heart, Percutaneous Approach (ICD-10-PCS; principal; 2020-11-19)
DX: R94.39 Abnormal result of other cardiovascular function study (principal); I25.10 Atherosclerotic heart disease of native coronary artery without angina pectoris; I25.82 Chronic total occlusion of coronary artery; I10 Essential (primary) hypertension; I48.0 Paroxysmal atrial fibrillation; E78.5 Hyperlipidemia, unspecified; M19.90 Unspecified osteoarthritis, unspecified site; E03.9 Hypothyroidism, unspecified; K21.9 Gastro-esophageal reflux disease without esophagitis; E11.43 Type 2 diabetes mellitus with diabetic autonomic (poly)neuropathy; K31.84 Gastroparesis; E66.9 Obesity, unspecified; Z68.39 Body mass index [BMI] 39.0-39.9, adult; Z87.891 Personal history of nicotine dependence; Z79.01 Long term (current) use of anticoagulants; Z79.82 Long term (current) use of aspirin; Z79.811 Long term (current) use of aromatase inhibitors; Z79.899 Other long term (current) drug therapy; Z88.0 Allergy status to penicillin; Z88.5 Allergy status to narcotic agent; Z88.6 Allergy status to analgesic agent; Z88.8 Allergy status to other drugs, medicaments and biological substances; Z95.1 Presence of aortocoronary bypass graft
CPT/HCPCS: 76942; 80048; 85025; 93458; 99152; 99153; J0153; J2250; J3010; Q9967